=== PATIENT | male | born 1955 | race Caucasian/White ===

== ENCOUNTER → 2017-03-30 | Emergency (ER) | payer OTHER ==
[~2017-03-30] VITALS: Ht 182.9 cm; Wt 104.3 kg
[~2017-03-30] MED LIST: ACETAMINOPHEN 325 MG TABLET. PO PRN; ALLOPURINOL 300 MG TABLET. PO SCH; ASPI81TA50 PO; ASPIRIN ENTERIC COATED 81 MG TABLET.DR. PO SCH; CARV25TA PO; CARVEDILOL 12.5 MG TABLET. PO SCH; CRESTOR10 MG PO; FURO-68 PO; FUROSEMIDE 40 MG TABLET. PO SCH; HYDR-971 PO; HYDR20VI5 IJ; HYDROCODONE/APAP 5/325MG TABLET. PO PRN; MULT-138 PO; MULTIVITAMIN with MINERAL TABLET. PO SCH; NITROGLYCERIN SUBLINGUAL 0.4 MG BOTTLE OF 25. SL PRN; NON FORMULARY ITEM (Rosuvastatin Calcium (Crestor) 10 MG) PO SCH; ONDANSETRON PF 4 MG/2 ML VIAL. IV ONE; ONDANSETRON PF 4 MG/2 ML VIAL. IV PRN; PANTOPRAZOLE 40 MG TABLET.DR. PO SCH; ROPI0.5T PO; ROPINIROLE HCL 0.5 MG PO SCH; WARF6TAB7 PO; WARFARIN 6 MG TABLET. PO SCH; [UNRECOGNIZED DRUG - CODE] PO; fentaNYL PF VIAL 100 MCG/2 ML VIAL IV ONE
[2017-03-30 08:00] LABS: BASO % 1 % (0-3); EOS % 2 % (0-3); HEMATOCRIT 38.1 % (39.0-53.0); HEMOGLOBIN 12.5 g/dL (13.0-17.5); LYMPH # 1.4 x10^3/uL (1.0-4.8); LYMPH % 22 % (24-48); MEAN CORPUSCULAR HEMOGLOBIN 31 pg (25-35); MEAN CORPUSCULAR HGB CONC 33 g/dL (31-37); MEAN CORPUSCULAR VOLUME 95 fL (79-100); MONO % 8 % (0-9); NEUT % 68 % (31-73); PLATELET COUNT 142 x10^3/uL (140-400); RED CELL DISTRIBUTION WIDTH 14.8 % (11.5-14.5); WHITE BLOOD COUNT 6.6 x10^3/uL (4.0-11.0)
[2017-03-30 08:05] LABS: INR 1.4 (0.8-1.1); PROTHROMBIN TIME PATIENT 16.6 SEC (11.7-14.0)
[2017-03-30 08:08] LABS: CALCIUM 9.1 mg/dL (8.5-10.1); CREATININE 1.6 mg/dL (0.7-1.3); POTASSIUM 4.3 mmol/L (3.5-5.1)
[2017-03-30 08:13] LABS: ALBUMIN 3.7 g/dL (3.4-5.0); ALBUMIN/GLOBULIN RATIO 1.1 (1.0-1.7); TOTAL BILIRUBIN 0.6 mg/dL (0.2-1.0); TOTAL PROTEIN 7.1 g/dL (6.4-8.2)
--- NOTE | 2017-03-30 08:21 | ED.ADGEN ---
Adult General Chief Complaint Chief Complaint: CHEST PAIN-CARDIAC NATURE HPI HPI Patient is a 61 year old with history of mechanical aortic valve replacement, pacemaker, CAD with stent placement presents with shortness of breath and epigastric pain and Lower chest wall hours prior to ED arrival. No nausea vomiting or sweats. Patient initially rate pain tenderness 10, but has improved to 5 out of 10 with 325 mg of aspirin and nitroglycerin 2. On ED arrival, chest pain persists. Patient's noted to be in a bigeminy S paced rhythm with a pulse rate of 40. Patient denies any other acute symptoms or complaints. 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 Review of Systems Review of Systems Review symptoms as per history of present illness. All other review of symptoms are negative. Current Medications Current Medications Current Medications Medications (Trade) Dose Ordered Sig/Harshal Start Time Stop Time Status Last Admin Dose Admin Enoxaparin Sodium (Lovenox 100mg Syringe) 100 mg 1X ONCE 03/30/17 09:15 03/30/17 09:16 DC 03/30/17 09:42 100 MG Fentanyl Citrate (Fentanyl 2ml Vial) 50 mcg 1X ONCE 03/30/17 08:30 03/30/17 08:31 DC 03/30/17 08:49 50 MCG Nitroglycerin (Nitrostat) 0.4 mg PRN Q5MIN PRN 03/30/17 11:30 03/30/17 11:27 0.4 MG Ondansetron HCl (Zofran) 4 mg 1X ONCE 03/30/17 08:00 03/30/17 08:00 DC Allergies Allergies Allergies Coded Allergies Type Severity Reaction Last Updated Verified lisinopril Allergy Intermediate rash 03/30/17 Yes Physical Exam Physical Exam Constitutional: Well developed, well nourished, moderate discomfort secondary to pain, non-toxic appearance. HENT: Normocephalic, atraumatic, bilateral external ears normal, oropharynx moist, no oral exudates, nose normal. Eyes: PERRLA, EOMI. Neck: Normal range of motion, supple. Cardiovascular:Heart rate regular rhythm, murmur present. Lungs & Thorax: Bilateral breath sounds clear to auscultation. Abdomen: Bowel sounds normal, soft, no tenderness. Skin: Warm, dry, no erythema. Back: No tenderness,. Extremities: No tenderness. Neurologic: Alert and oriented X 3, normal motor function, normal sensory function, no focal deficits noted. Psychologic: Affect normal, judgement normal, mood normal. Current Patient Data Vital Signs Vital Signs Date Time Temp Pulse Resp B/P Pulse Ox O2 Delivery O2 Flow Rate FiO2 03/30/17 11:27 75 151/84 03/30/17 10:44 14 99 Nasal Cannula 2 03/30/17 07:30 98.0 98.0 Lab Values Laboratory Tests Test 03/30/17 07:30 White Blood Count 6.6x10^3/uL (4.0-11.0) Red Blood Count 4.00x10^6/uL (4.30-5.70) L Hemoglobin 12.5g/dL (13.0-17.5) L Hematocrit 38.1% (39.0-53.0) L Mean Corpuscular Volume 95fL (79-100) Mean Corpuscular Hemoglobin 31pg (25-35) Mean Corpuscular Hemoglobin Concent 33g/dL (31-37) Red Cell Distribution Width 14.8% (11.5-14.5) H Platelet Count 142x10^3/uL (140-400) Neutrophils (%) (Auto) 68% (31-73) Lymphocytes (%) (Auto) 22% (24-48) L Monocytes (%) (Auto) 8% (0-9) Eosinophils (%) (Auto) 2% (0-3) Basophils (%) (Auto) 1% (0-3) Neutrophils # (Auto) 4.5x10^3uL (1.8-7.7) Lymphocytes # (Auto) 1.4x10^3/uL (1.0-4.8) Monocytes # (Auto) 0.5x10^3/uL (0.0-1.1) Eosinophils # (Auto) 0.1x10^3/uL (0.0-0.7) Basophils # (Auto) 0.0x10^3/uL (0.0-0.2) Prothrombin Time 16.6SEC (11.7-14.0) H Prothrombin Time INR 1.4 (0.8-1.1) H Sodium Level 137mmol/L (136-145) Potassium Level 4.3mmol/L (3.5-5.1) Chloride Level 104mmol/L (98-107) Carbon Dioxide Level 24mmol/L (21-32) Anion Gap 9 (6-14) Blood Urea Nitrogen 35mg/dL (8-26) H Creatinine 1.6mg/dL (0.7-1.3) H Estimated GFR (Cockcroft-Gault) 44.0 BUN/Creatinine Ratio 22 (6-20) H Glucose Level 196mg/dL (70-99) H Calcium Level 9.1mg/dL (8.5-10.1) Total Bilirubin 0.6mg/dL (0.2-1.0) Aspartate Amino Transferase (AST) 30U/L (15-37) Alanine Aminotransferase (ALT) 30U/L (16-63) Alkaline Phosphatase 38U/L (46-116) L Creatine Kinase 298U/L (39-308) Troponin I Quantitative 0.076ng/mL (0.000-0.055) Total Protein 7.1g/dL (6.4-8.2) Albumin 3.7g/dL (3.4-5.0) Albumin/Globulin Ratio 1.1 (1.0-1.7) Laboratory Tests 03/30/17 07:30 Laboratory Tests 03/30/17 07:30 EKG EKG EKG: Sinus rhythm, rate 81 with bigeminy. Radiology/Procedures Radiology/Procedures [Chest x-ray: Chest x-ray: No acute cardiopulmonary disease.] Impressions: Chest pain with frequent PACs and bigeminy on EKG. Troponin minimally elevated. Pain free with fentanyl. Patient's INR is subtherapeutic. Lovenox given. Course & Med Decision Making Course & Med Decision Making Pertinent Labs and Imaging studies reviewed. (See chart for details) [Patient Ariela request transfer to [facility]. However, due to extended transfer times patient inches mind and requests admission to [facility]. Dr. Schwarz to admit with anticipated cardiology consult Aurea Disclaimer Aurea Disclaimer This electronic medical record was generated, in whole or in part, using a voice recognition dictation system. MATT ROSA DO March 30, 2017 08:21
--- NOTE | 2017-03-30 10:16 | ACF ---
Admission Forms Criteria CARDIOLOGY GRG Clinical Indications for Admission to Inpatient Care ( Place 'X' for any and all applicable criteria): Hospital admission is needed for appropriate care of the patient because of ANY ONE of the following (1): [ ] I. Hemodynamic instability as indicated by ALL of the following (1)(2)(3) (4)(5) [ ]a) Vital signs or other findings not as expected for chronic patient condition or baseline [ ]b) Instability indicated by ANY ONE of the following: [ ]i) Hypotension [ ]ii) Symptomatic Tachycardia unresponsive to treatment ( e.g., analgesia, fluids, sedation as indicated) [ ]iii) Inadequate perfusion indicated by ANY ONE of the following: [ ] 1) Lactic acidosis (> 2 mmol/L) [ ] 2) New abnormal capillary refill (> 3 seconds) [ ] 3) Reduced urine output [ ] 4) New altered mental status [ ]iv) Orthostatic vital sign changes unresponsive to treatment (e.g., fluids) [ ]v) IV inotropic or vasopressor medication required to maintain adequate blood pressure or perfusion [ ] II. Severe heart failure as indicated by ANY ONE of the following(17)(18) [ ]a) Respiratory distress [ ]b) Hypotension [ ]c) Anasarca (refractory to outpatient therapy) [ ]d) Cardiac arrhythmias of immediate concern [ ]e) Myocardial ischemia [ ] III. Cardiac arrhythmias or findings of immediate concern indicated by ANY ONE of the following (19)(20): [ ] a) Heart rhythms that are inherently dangerous or unstable indicated by ANY ONE of the following (21)(22)(23): [ ] i) Resuscitated ventricular fibrillation or cardiac arrest [ ] ii) Ventricular escape rhythm [ ] iii) Sustained ventricular tachycardia (30 seconds or more of ventricular rhythm at greater than 100 beats per minute) [ ] iv) Nonsustained ventricular tachycardia and ANY ONE of the following: [ ] 1) Suspected cardiac ischemia as cause or consequence of ventricular tachycardia [ ] 2) In setting of acute myocarditis [ ] b) Unstable cardiac conduction defects indicated by ANY ONE of the following(23)(24)(25) [ ] i) Type II second-degree atrioventricular block [ ]ii) Third-degree atrioventricular block [ ]iii) New-onset left bundle branch block with suspected myocardial ischemia [ ]c) Any heart rhythm and ANY ONE of the following (21)(22)(26)(27) (28) [ ] i) Continuous long-term ECG monitoring needed (e.g., initiation of drug requiring monitoring for more than 24 hours) [ ] ii) Patient has automatic implanted cardioverter defibrillator that is repeatedly firing, malfunctioning, or in need of immediate adjustment of settings beyond the scope of ambulatory or observation care [ ]d) Heart rhythms of concern due to ANY ONE of the following: [ ] i) Hypotension [ ] ii) Respiratory distress [ ] iii) Association with other significant symptoms (e.g., bradycardia with syncope or ongoing dizziness, supraventricular tachycardia with chest pain (14)(15)(17) [ ] IV. Monitoring for cardiac contusion beyond the scope of observation care needed [A](30)(31)(32) [ ] V. Surgical or device complication (e.g., valve replacement complication , pacemaker dysfunction) (35)(41)(44)(45)(46) [ ] . Inpatient palliative care needed. [B](49) Also use Inpatient Palliative Care Criteria [ ] VII. Nonbacterial thrombotic (marantic) endocarditis (36)(43)(47)(48) [X] VIII. Cardiology condition, symptom, or finding for which emergency and observation care has failed or are not considered appropriate. [ ] IX. Acute valvular disease requiring inpatient as indicated by ANY ONE of the following (41) [ ]a) Acute valvular regurgitation (42) [ ]b) Noninfectious valvulitis (43) [ ]c) Obstructive valve thrombosis [ ]d) Paravalvular leak [ ]e) Other significant valvular disorder remaining after emergency or observation level of care (as appropriate) [ ]X. Pericardial disease requiring inpatient treatment as indicated by ANY ONE of the following (33)(34)(35)(36)(37) [ ]a) Suspected tamponade (38)(39)(40) [ ]b) Hemopericardium [ ]c) Other significant pericardial disorder remaining after emergency or observation level of care (as appropriate) [ ] XI. Cardiac ischemia beyond scope of emergency and observation care. [ ] XII. Hypertension requiring inpatient treatment as indicated by ANY ONE of the following (6)(7)(8) [ ]a) SBP greater than 220 mm Hg or DBP greater than 120 mmHg despite treatment [ ]b) SBP greater than 140 mm Hg or DBP greater than 100 mm Hg with evidence of acute end organ damage as indicated by ANY ONE of the following [ ] i) Encephalopathy [ ] ii) Acute renal failure as indicated by new onset of ANY ONE of the following (9)(10)(11)(12)(13) [ ]1) 3-fold rise in serum creatinine from baseline [ ]2) Serum creatinine greater than 4 mg/dL ( 354 micromoles/L) with acute rise greater than 0.5 mg/dL (44.2 micromoles/L) [ ]3) Reduction of more than 75% in estimated glomerular filtration rate from baseline [ ]4) Estimated glomerular filtration rate less than 35 mL/min/1.73m2 (0.59 mL/sec/1.73m2) in child up to 18 years of age [ ]5) Cessation of urine output indicated by ALL of the following [ ]A. Adequate volume status [ ]B. Inadequate urine output as indicated by ANY ONE of the following [ ]a. Urine output less than 0.3 mL/kg/hr for 24 hours [ ]b. Anuria (urine output less than 0.1 mL/kg/hr) for 12 hours [ ] iii) Aortic dissection [ ] iv) Myocardial Ischemia [ ] v) Left ventricular heart failure [ ]vi) Retinal Hemorrhage [ ]vii) Other significant finding [ ]c) Hypertension in child requiring inpatient treatment as indicated by ALL of the following(14)(15)(16) [ ] i) Outpatient treatment not effective, not available, or not appropriate [ ]ii) SBP or DBP greater than 95th percentile for age [ ]iii) Evidence of acute end organ damage as indicated by ANY ONE of the following [ ]1) Altered mental status [ ]2) Acute renal failure as indicated by new onset of ANY ONE of the following(9)(10)(11)(12)(13) [ ]A. 3-fold rise in serum creatinine from baseline [ ]B. Serum creatinine greater than 4 mg/dL (354 micromoles/L) with acute rise greater than 0.5 mg/dL (44.2 micromoles/L) [ ]C. Reduction of more than 75% in estimated glomerular filtration rate from baseline [ ]D. Estimated glomerular filtration rate less than 35 mL/min/1.73m2 (0.59 mL/sec/1.73m2) in child up to 18 years of age [ ]E. Cessation of urine output indicated by ALL of the following [ ]a. Adequate volume status [ ]b. Inadequate urine output as indicated by ANY ONE of the following [ ]i) Urine output less than 0.3 mL/kg/hr for 24 hours [ ]ii) Anuria ( urine output less than 0.1 mL/kg/hr) for 12 hours [ ]3) Severe headache [ ]4) Visual disturbance [ ]5) Retinal hemorrhage [ ]6) Other significant finding [ ]XIII. Complications of transplanted heart indicated by ANY ONE of the following(61): [ ]a) Acute graft rejection requiring inpatient management (eg, intravenous immunosuppression)(62)(63) [ ]b) Acute graft heart failure indicated by ANY ONE of the following(64): [ ]i) Hemodynamic instability [ ]ii) Cardiac arrhythmias of immediate concern [ ]iii) Pulmonary edema that is very severe (eg, mechanical ventilation needed, imminent or likely, need for 100% oxygen to keep oxygen saturation above 90%) [ ]iv) Pulmonary edema that is persistent as indicated by ALL of the following: [ ]1) New need for oxygen therapy to keep oxygen saturation above 90% (or increased FiO2 need from baseline) [ ]2) Has not improved sufficiently with emergency department or observation care IV diuretics or other heart failure treatments[E] [ ]v) Altered mental status that is severe or persistent [ ]vi) Increased creatinine (new on laboratory test) with reduction of more than 50% in estimated glomerular filtration rate from baseline [ ]vii) Progressively (ongoing) rising creatinine (known from past laboratory test) with reduction of more than 25% in estimated glomerular filtration rate from baseline [ ]viii) Acute renal failure [ ]ix) Acute peripheral ischemia (eg, examination shows pulseless, cool, mottled, or cyanotic extremity) [ ]x) Pulmonary artery catheter monitoring needed [ ]xi) Other sign or symptom of heart failure requiring inpatient treatment (ie, too severe or not responsive to outpatient and observation care treatment) [ ]c) Infection requiring inpatient management (eg, Hemodynamic instability, need for intravenous antimicrobial treatment)(66)(67)(68)(69)(70) [ ]d) Cardiac allograft vasculopathy requiring inpatient management ( eg evidence of cardiac ischemia)(71) [ ]e) Other complication of transplanted heart (eg, stroke, severe pulmonary hypertension, severe valvular dysfunction) requiring inpatient management(72) The original [facility] content created by [facility] has been revised. The portions of the content which have been revised are identified through the use of italic text or in bold, and [facility] has neither reviewed nor approved the modified material. All other unmodified content is copyright [facility]. Please see references footnoted in the original [facility] edition 2016 Admission Criteria Met?: Yes SANDRA BEAVERS March 30, 2017 10:16
--- NOTE | 2017-03-30 11:37 | RAD ---
Portable chest, 03/30/2017: History: Shortness of breath Comparison is made to a study from 07/31/2010. There has been a previous median sternotomy. A left-sided transvenous pacemaker has been inserted with 3 leads extending into the heart. The heart is at the upper limits of normal in size. There is calcific plaquing of the aorta. The pulmonary vascularity is normal. No pulmonary infiltrates are seen. There is no evidence of pleural fluid. IMPRESSION: 1. Borderline cardiomegaly. 2. No acute abnormality is detected.
--- NOTE | 2017-03-30 13:12 | EKG ---
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
--- NOTE | 2017-03-30 14:43 | PDOC1 ---
History and Physical Date of Admission Date of Admission 03/30/17 Identification/Chief Complaint Chief Complaint chest pain Problems: Source Source: Chart review, Patient History of Present Illness History of Present Illness Patient is a 61 year old with history of mechanical aortic valve replacement, pacemaker/ICD, CAD with stent placement 3 Years ago comes for chest pain. Pt usually fu with [facility]. He said he had a stress test done this year which showed EF 30% and then got ICD /PPM 1 month ago. He had substernal chest pain started from today, with sob, no N/V or diaphoresis. He also feels right finger tingling. He also has chest wall tenderness, and said it is the chest pain. better with nitro. denies GERD, but has mild LUQ abd tenderness. takes warfarin for AVR 5mg 5/w, 5mg 2/w, last week INR 5, now 1.4. troponin 0.07 Past Medical History Past Medical History cad, AVR, icd, ppm Cardiovascular: HTN Past Surgical History Past Surgical History avr Family History Family History: No Significant Social History Smoke: No ALCOHOL: none Drugs: None Current Problem List Problem List Problems Medical Problems: (1) Chest pain Status: Acute (2) Chest pain Status: Acute Current Medications Current Medications Current Medications Medications (Trade) Dose Ordered Sig/Harshal Start Time Stop Time Status Last Admin Dose Admin Enoxaparin Sodium (Lovenox 100mg Syringe) 100 mg 1X ONCE 03/30/17 09:15 03/30/17 09:16 DC 03/30/17 09:42 100 MG Fentanyl Citrate (Fentanyl 2ml Vial) 50 mcg 1X ONCE 03/30/17 08:30 03/30/17 08:31 DC 03/30/17 08:49 50 MCG Nitroglycerin (Nitrostat) 0.4 mg PRN Q5MIN PRN 03/30/17 11:30 03/30/17 11:27 0.4 MG Ondansetron HCl (Zofran) 4 mg 1X ONCE 03/30/17 08:00 03/30/17 08:00 DC Allergies Allergies Allergies Coded Allergies Type Severity Reaction Last Updated Verified lisinopril Allergy Intermediate rash 03/30/17 Yes ROS Review of System CONSTITUTIONAL: No fever or chills EYES: No recent changes SKIN: No rash or itching CARDIOVASCULAR: No chest pain, syncope, palpitations, or edema RESPIRATORY: No SOB or cough GASTROINTESTINAL: No nausea, vomiting or abdominal pain NEUROLOGICAL: No headaches or weakness ENDOCRINE: No cold or heat intolerance GENITOURINARY: No urgency or frequency of urination MUSCULOSKELETAL: No back pain or joint pain LYMPHATICS: No enlarged lymph nodes PSYCHIATRIC: No anxiety or depression Physical Exam Physical Exam GEN.: No apparent distress. Alert and oriented. HEENT: Head is normocephalic, atraumatic NECK: Supple. LUNGS: Clear to auscultation. MIDDLE chest wall tenderness. HEART: RRR, S1, S2 present. Peripheral pulses intact ABDOMEN: Soft, nontender. Positive bowel sounds. LUQ abd mild tenderness EXTREMITIES: Without any cyanosis. NEUROLOGIC: Normal speech, normal tone PSYCHIATRIC: Normal affect, normal mood. SKIN: No ulcerations Vitals Vitals Vital Signs Date Time Temp Pulse Resp B/P Pulse Ox O2 Delivery O2 Flow Rate FiO2 03/30/17 13:54 66 15 147/70 99 Nasal Cannula 2 03/30/17 07:30 98.0 98.0 Labs Labs Laboratory Tests Test 03/30/17 07:30 White Blood Count 6.6x10^3/uL (4.0-11.0) Red Blood Count 4.00x10^6/uL (4.30-5.70) Hemoglobin 12.5g/dL (13.0-17.5) Hematocrit 38.1% (39.0-53.0) Mean Corpuscular Volume 95fL (79-100) Mean Corpuscular Hemoglobin 31pg (25-35) Mean Corpuscular Hemoglobin Concent 33g/dL (31-37) Red Cell Distribution Width 14.8% (11.5-14.5) Platelet Count 142x10^3/uL (140-400) Neutrophils (%) (Auto) 68% (31-73) Lymphocytes (%) (Auto) 22% (24-48) Monocytes (%) (Auto) 8% (0-9) Eosinophils (%) (Auto) 2% (0-3) Basophils (%) (Auto) 1% (0-3) Neutrophils # (Auto) 4.5x10^3uL (1.8-7.7) Lymphocytes # (Auto) 1.4x10^3/uL (1.0-4.8) Monocytes # (Auto) 0.5x10^3/uL (0.0-1.1) Eosinophils # (Auto) 0.1x10^3/uL (0.0-0.7) Basophils # (Auto) 0.0x10^3/uL (0.0-0.2) Prothrombin Time 16.6SEC (11.7-14.0) Prothromb Time International Ratio 1.4 (0.8-1.1) Sodium Level 137mmol/L (136-145) Potassium Level 4.3mmol/L (3.5-5.1) Chloride Level 104mmol/L (98-107) Carbon Dioxide Level 24mmol/L (21-32) Anion Gap 9 (6-14) Blood Urea Nitrogen 35mg/dL (8-26) Creatinine 1.6mg/dL (0.7-1.3) Estimated GFR (Cockcroft-Gault) 44.0 BUN/Creatinine Ratio 22 (6-20) Glucose Level 196mg/dL (70-99) Calcium Level 9.1mg/dL (8.5-10.1) Total Bilirubin 0.6mg/dL (0.2-1.0) Aspartate Amino Transf (AST/SGOT) 30U/L (15-37) Alanine Aminotransferase (ALT/SGPT) 30U/L (16-63) Alkaline Phosphatase 38U/L (46-116) Creatine Kinase 298U/L (39-308) Troponin I Quantitative 0.076ng/mL (0.000-0.055) Total Protein 7.1g/dL (6.4-8.2) Albumin 3.7g/dL (3.4-5.0) Albumin/Globulin Ratio 1.1 (1.0-1.7) Laboratory Tests Test 03/30/17 07:30 White Blood Count 6.6x10^3/uL (4.0-11.0) Red Blood Count 4.00x10^6/uL (4.30-5.70) Hemoglobin 12.5g/dL (13.0-17.5) Hematocrit 38.1% (39.0-53.0) Mean Corpuscular Volume 95fL (79-100) Mean Corpuscular Hemoglobin 31pg (25-35) Mean Corpuscular Hemoglobin Concent 33g/dL (31-37) Red Cell Distribution Width 14.8% (11.5-14.5) Platelet Count 142x10^3/uL (140-400) Neutrophils (%) (Auto) 68% (31-73) Lymphocytes (%) (Auto) 22% (24-48) Monocytes (%) (Auto) 8% (0-9) Eosinophils (%) (Auto) 2% (0-3) Basophils (%) (Auto) 1% (0-3) Neutrophils # (Auto) 4.5x10^3uL (1.8-7.7) Lymphocytes # (Auto) 1.4x10^3/uL (1.0-4.8) Monocytes # (Auto) 0.5x10^3/uL (0.0-1.1) Eosinophils # (Auto) 0.1x10^3/uL (0.0-0.7) Basophils # (Auto) 0.0x10^3/uL (0.0-0.2) Prothrombin Time 16.6SEC (11.7-14.0) Prothromb Time International Ratio 1.4 (0.8-1.1) Sodium Level 137mmol/L (136-145) Potassium Level 4.3mmol/L (3.5-5.1) Chloride Level 104mmol/L (98-107) Carbon Dioxide Level 24mmol/L (21-32) Anion Gap 9 (6-14) Blood Urea Nitrogen 35mg/dL (8-26) Creatinine 1.6mg/dL (0.7-1.3) Estimated GFR (Cockcroft-Gault) 44.0 BUN/Creatinine Ratio 22 (6-20) Glucose Level 196mg/dL (70-99) Calcium Level 9.1mg/dL (8.5-10.1) Total Bilirubin 0.6mg/dL (0.2-1.0) Aspartate Amino Transf (AST/SGOT) 30U/L (15-37) Alanine Aminotransferase (ALT/SGPT) 30U/L (16-63) Alkaline Phosphatase 38U/L (46-116) Creatine Kinase 298U/L (39-308) Troponin I Quantitative 0.076ng/mL (0.000-0.055) Total Protein 7.1g/dL (6.4-8.2) Albumin 3.7g/dL (3.4-5.0) Albumin/Globulin Ratio 1.1 (1.0-1.7) VTE Prophylaxis Ordered VTE Prophylaxis Devices: Yes VTE Pharmacological Prophylaxi: No Assessment/Plan Assessment/Plan 1. chest pain, need to rule out NSTEMI with mild elevated troponin, could also 2 /2 muscular pain with tenderness 2. h/o CAD post PCI with 1 stent 3. AVR on warfarin 4. PPM, ICD 5. STAble systolic chf EF 30% 6. htn 7. CKD3 PLAN: card consult need to get records from [facility], got recent MPI resume home meds on warfarin, cont , INR daily. got extra dose of lovenox in ER cycle CE, check tsh, lipid panel pain control SERAFIN CARNEY MD March 30, 2017 14:42
[2017-03-30 15:39] VITALS: BP 130/91
== END | disposition short-term general hospital (02) ==
LOC: ER 07:30 → ED HOLD 12:33 → UNDOADMIN 12:33 → ER 16:08
DX: R07.89 Other chest pain (principal); I49.1 Atrial premature depolarization; R00.8 Other abnormalities of heart beat; Z88.8 Allergy status to other drugs, medicaments and biological substances
CPT/HCPCS: 36415; 71010; 80053; 82550; 84484; 85027; 85610; 93005; 96372; 96374; 96375; 96376; 99285; J1650; J2405; J3010

== ENCOUNTER 2017-09-06 08:29 | Inpatient (IN) | payer MEDICARE, OTHER ==
[2017-09-06] VITALS (10 sets, daily range): BP systolic 108–166; BP diastolic 65–99
[~2017-09-06] VITALS: Ht 182.9 cm; Wt 109.9 kg
[~2017-09-06 08:29] MED LIST changes: -ACETAMINOPHEN 325 MG TABLET. PO PRN; +ALLO300T67 PO; -ALLOPURINOL 300 MG TABLET. PO SCH; -ASPIRIN ENTERIC COATED 81 MG TABLET.DR. PO SCH; -CARVEDILOL 12.5 MG TABLET. PO SCH; -FUROSEMIDE 40 MG TABLET. PO SCH; -HYDROCODONE/APAP 5/325MG TABLET. PO PRN; -MULTIVITAMIN with MINERAL TABLET. PO SCH; -NITROGLYCERIN SUBLINGUAL 0.4 MG BOTTLE OF 25. SL PRN; -NON FORMULARY ITEM (Rosuvastatin Calcium (Crestor) 10 MG) PO SCH; -ONDANSETRON PF 4 MG/2 ML VIAL. IV ONE; -ONDANSETRON PF 4 MG/2 ML VIAL. IV PRN; -PANTOPRAZOLE 40 MG TABLET.DR. PO SCH; -ROPINIROLE HCL 0.5 MG PO SCH; -WARFARIN 6 MG TABLET. PO SCH; -[UNRECOGNIZED DRUG - CODE] PO; -fentaNYL PF VIAL 100 MCG/2 ML VIAL IV ONE
--- NOTE | 2017-09-06 08:34 | PHYS DOC ---
Past Medical History Past Medical History: Hypertension, GA Past Surgical History: Pacemaker, Other Additional Past Surgical Histo: defib, aortic valve replacement, cardiac cath with stent Alcohol Use: None Drug Use: None Adult General Chief Complaint Chief Complaint: SHORTNESS OF BREATH HPI HPI Patient is a 62 year old male who presents with is pain that started this morning around 3 hours ago with shortness of breath. He states he's on Lasix he's been compliant with all his medications. He states he had aortic valve replacement at [facility] several years ago, he states is on Coumadin. He is being bagged by EMS because he is refusing BiPAP. He states he is usually seen at the [facility]. He denies any fevers or chills. Review of Systems Review of Systems Constitutional: Denies fever or chills [] Eyes: Denies change in visual acuity, redness, or eye pain [] HENT: Denies nasal congestion or sore throat [] Respiratory: Positive for productive cough and shortness of breath. Cardiovascular: No additional information not addressed in HPI [] GI: Denies abdominal pain, nausea, vomiting, bloody stools or diarrhea [] : Denies dysuria or hematuria [] Musculoskeletal: Denies back pain or joint pain [] Integument: Denies rash or skin lesions [] Neurologic: Denies headache, focal weakness or sensory changes [] Endocrine: Denies polyuria or polydipsia [] Current Medications Current Medications Current Medications Medications (Trade) Dose Ordered Sig/Harshal Start Time Stop Time Status Last Admin Dose Admin Albuterol/ Ipratropium (Duoneb) 3 ml 1X ONCE 09/06/17 10:45 09/06/17 10:46 Aspirin (Children'S Aspirin) 324 mg 1X ONCE 09/06/17 08:45 09/06/17 08:46 DC 09/06/17 09:08 324 MG Enoxaparin Sodium (Lovenox 100mg Syringe) 100 mg Q12HR 09/06/17 11:00 Enoxaparin Sodium (Lovenox Per Pharmacy Treatment Dosing) 1 each PRN DAILY PRN 09/06/17 10:45 Furosemide (Lasix) 40 mg STK-MED ONCE 09/06/17 08:37 09/06/17 08:38 DC Lorazepam (Ativan) 0.5 mg 1X ONCE 09/06/17 09:15 09/06/17 09:18 DC 09/06/17 09:23 0.5 MG Nitroglycerin (Nitrostat) 0.4 mg PRN Q5MIN PRN 09/06/17 08:45 09/07/17 08:44 Allergies Allergies Allergies Coded Allergies Type Severity Reaction Last Updated Verified lisinopril Allergy Intermediate rash 03/30/17 Yes Physical Exam Physical Exam Constitutional: Well developed, well nourished, no acute distress, non-toxic appearance. [] HENT: Normocephalic, atraumatic, bilateral external ears normal, oropharynx moist, no oral exudates, nose normal. [] Eyes: PERRLA, EOMI, conjunctiva normal, no discharge. [] Neck: Normal range of motion, no tenderness, supple, no stridor. [] Cardiovascular:Heart rate regular rhythm, no murmur [] Lungs & Thorax: Bilateral breath sounds decreased at the bases with crackles present Abdomen: Bowel sounds normal, soft, no tenderness, no masses, no pulsatile masses. [] Skin: Warm, dry, no erythema, no rash. [] Back: No tenderness, no CVA tenderness. [] Extremities: No tenderness, no cyanosis, no clubbing, ROM intact, no edema. [] Neurologic: Alert and oriented X 3, normal motor function, normal sensory function, no focal deficits noted. [] Psychologic: Affect normal, judgement normal, mood normal. [] Current Patient Data Vital Signs Vital Signs Date Time Temp Pulse Resp B/P (MAP) Pulse Ox O2 Delivery O2 Flow Rate FiO2 09/06/17 10:13 68 134/91 (105) 99 BiPAP/CPAP 09/06/17 09:28 24 09/06/17 08:58 6.0 09/06/17 08:31 97.8 97.8 Lab Values Laboratory Tests Test 09/06/17 08:40 09/06/17 08:51 09/06/17 09:30 White Blood Count 9.1 x10^3/uL (4.0-11.0) Red Blood Count 4.59 x10^6/uL (4.30-5.70) Hemoglobin 14.2 g/dL (13.0-17.5) Hematocrit 43.7 % (39.0-53.0) Mean Corpuscular Volume 95 fL (79-100) Mean Corpuscular Hemoglobin 31 pg (25-35) Mean Corpuscular Hemoglobin Concent 32 g/dL (31-37) Red Cell Distribution Width 15.2 % (11.5-14.5) H Platelet Count 276 x10^3/uL (140-400) Neutrophils (%) (Auto) 48 % (31-73) Lymphocytes (%) (Auto) 39 % (24-48) Monocytes (%) (Auto) 9 % (0-9) Eosinophils (%) (Auto) 3 % (0-3) Basophils (%) (Auto) 1 % (0-3) Neutrophils # (Auto) 4.4 x10^3uL (1.8-7.7) Lymphocytes # (Auto) 3.6 x10^3/uL (1.0-4.8) Monocytes # (Auto) 0.8 x10^3/uL (0.0-1.1) Eosinophils # (Auto) 0.3 x10^3/uL (0.0-0.7) Basophils # (Auto) 0.1 x10^3/uL (0.0-0.2) Prothrombin Time 16.9 SEC (11.7-14.0) H Prothrombin Time INR 1.5 (0.8-1.1) H Sodium Level 143 mmol/L (136-145) Potassium Level 3.9 mmol/L (3.5-5.1) Chloride Level 107 mmol/L (98-107) Carbon Dioxide Level 24 mmol/L (21-32) Anion Gap 12 (6-14) Blood Urea Nitrogen 23 mg/dL (8-26) Creatinine 1.5 mg/dL (0.7-1.3) H Estimated GFR (Cockcroft-Gault) 47.3 Glucose Level 236 mg/dL (70-99) H Calcium Level 8.8 mg/dL (8.5-10.1) Magnesium Level 2.1 mg/dL (1.8-2.4) Total Bilirubin 0.3 mg/dL (0.2-1.0) Direct Bilirubin < 0.1 mg/dL (0.0-0.2) Aspartate Amino Transferase (AST) 29 U/L (15-37) Alanine Aminotransferase (ALT) 32 U/L (16-63) Alkaline Phosphatase 54 U/L (46-116) Creatine Kinase 324 U/L (39-308) H Creatine Kinase MB (Mass) 5.3 ng/mL (0.0-3.6) H Creatine Kinase MB Relative Index 1.6 % (0-4) Troponin I Quantitative 0.079 ng/mL (0.000-0.055) BU-Fmd-U-Type Natriuretic Peptide 2797 pg/mL (0-124) H Total Protein 7.4 g/dL (6.4-8.2) Albumin 4.0 g/dL (3.4-5.0) Lipase 273 U/L (73-393) Thyroid Stimulating Hormone (TSH) 3.036 uIU/mL (0.358-3.74) O2 Saturation 97 % (92-99) Arterial Blood pH 7.27 (7.35-7.45) L Arterial Blood pCO2 at Patient Temp 48 mmHg (35-46) H Arterial Blood pO2 at Patient Temp 101 mmHg (65-108) Arterial Blood HCO3 22 mmol/L (21-28) Arterial Blood Base Excess -6 mmol/L (-3-3) L FiO2 44 Lactic Acid Level 1.1 mmol/L (0.4-2.0) Laboratory Tests 09/06/17 08:40 Laboratory Tests 09/06/17 08:40 EKG EKG EKG shows sinus tachycardia with a rate of 112 bpm with right axis deviation, right bundle branch morphology noted, no ST elevations or concerning T-wave inversions noted, QTC 430 ms, as interpreted by me. Radiology/Procedures Radiology/Procedures [facility] [address] [place], [place] [id number] IMAGING REPORT Signed PATIENT: LAURIE CUI ACCOUNT: [id number] : 1955 LOCATION: ER AGE: 62 SEX: M EXAM STATUS: PRE ER ORD. PHYSICIAN: EMILY MEI MD REASON: soa PROCEDURE: PORTABLE CHEST 1V Portable chest, 09/06/2017: History: Shortness of breath Comparison is made to a study from 03/30/2017. There has been a previous median sternotomy. A left-sided transvenous pacemaker remains in place with 3 leads extending into the heart. The heart is enlarged. The pulmonary vascularity is congested with loss of vascular margination. There are moderate, predominantly interstitial opacities in the lungs suggesting pulmonary edema. There is no evidence of pleural fluid. IMPRESSION: Congestive heart failure with mild pulmonary edema. DICTATED and SIGNED BY: CYNTHIA CORTEZ MD DATE: 09/06/17 0915 CC: EMILY MEI MD; LAVINIA NORIEGA ~ Impressions: Congestive heart failure exacerbation Chest pain Aortic valve replacement Chronic kidney disease stage III Coronary artery disease with stents 1 Hypertension Course & Med Decision Making Course & Med Decision Making Pertinent Labs and Imaging studies reviewed. (See chart for details) EKG does not show any acute abnormalities, troponin is slightly elevated however this was elevated and his last admission 2. He does have a EF of around 30%. He received 40 of IV Lasix upon arrival. He received 0.5 mg Ativan times one and BiPAP was initiated after his ABG showed respiratory acidosis. He is feeling better at this point. At 10:30 I removed him off BiPAP and put him back on nasal cannula at 3 L. Dual neb has been ordered to see if that will help his symptoms. I did order Lovenox per pharmacy dosing since he subtherapeutic INR with his aortic valve. I did speak with Dr. Chaudhari regarding his EKG, elevated troponin, and physical exam findings. He agrees with Lovenox. Patient' s in stable condition being admitted to ICU at this time. Dragon Disclaimer Dragon Disclaimer This electronic medical record was generated, in whole or in part, using a voice recognition dictation system. Departure Departure Impression: Primary Impression: Acute exacerbation of congestive heart failure Disposition: ADMITTED INPATIENT Admitting Physician: Other Condition: STABLE Referrals: LAVINIA NORIEGA (PCP) Problem Qualifiers Primary Impression: Acute exacerbation of congestive heart failure Congestive heart failure type: systolic Qualified Codes: I50.23 - Acute on chronic systolic (congestive) heart failure EMILY MEI MD Sep 06, 2017 08:34
[2017-09-06] MEDS ORDERED: FUROSEMIDE 40 MG/4 ML VIAL. ONE (08:37)
[2017-09-06] MEDS ORDERED: NITROGLYCERIN SUBLINGUAL 0.4 MG BOTTLE OF 25. SL PRN ×2 (08:45→23:00)
[2017-09-06] MEDS ORDERED: ASPIRIN CHEWABLE 81 MG TABLET. PO ONE (08:45)
[2017-09-06] MEDS ORDERED: FUROSEMIDE 40 MG/4 ML VIAL. IVP ONE (08:45)
[2017-09-06 09:12] LABS: FIO2 ABG 44; HCO3 ABG 22 mmol/L (21-28); PCO2 ABG 48 mmHg (35-46); PH ABG 7.27 (7.35-7.45); PO2 ABG 101 mmHg (65-108); SAT O2 ABG 97 % (92-99)
--- NOTE | 2017-09-06 09:19 | RAD ---
Portable chest, 09/06/2017: History: Shortness of breath Comparison is made to a study from 03/30/2017. There has been a previous median sternotomy. A left-sided transvenous pacemaker remains in place with 3 leads extending into the heart. The heart is enlarged. The pulmonary vascularity is congested with loss of vascular margination. There are moderate, predominantly interstitial opacities in the lungs suggesting pulmonary edema. There is no evidence of pleural fluid. IMPRESSION: Congestive heart failure with mild pulmonary edema.
[2017-09-06 09:20] LABS: BASO # 0.1 x10^3/uL (0.0-0.2); BASO % 1 % (0-3); EOS % 3 % (0-3); HEMATOCRIT 43.7 % (39.0-53.0); HEMOGLOBIN 14.2 g/dL (13.0-17.5); LYMPH # 3.6 x10^3/uL (1.0-4.8); LYMPH % 39 % (24-48); MEAN CORPUSCULAR HEMOGLOBIN 31 pg (25-35); MEAN CORPUSCULAR HGB CONC 32 g/dL (31-37); MEAN CORPUSCULAR VOLUME 95 fL (79-100); MONO % 9 % (0-9); NEUT % 48 % (31-73); PLATELET COUNT 276 x10^3/uL (140-400); RED BLOOD COUNT 4.59 x10^6/uL (4.30-5.70); RED CELL DISTRIBUTION WIDTH 15.2 % (11.5-14.5); WHITE BLOOD COUNT 9.1 x10^3/uL (4.0-11.0)
[2017-09-06 09:33] LABS: ANION GAP 12 (6-14); BLOOD UREA NITROGEN 23 mg/dL (8-26); CALCIUM 8.8 mg/dL (8.5-10.1); CARBON DIOXIDE 24 mmol/L (21-32); CHLORIDE 107 mmol/L (98-107); CREATININE 1.5 mg/dL (0.7-1.3); GFR 47.3; GLUCOSE 236 mg/dL (70-99); POTASSIUM 3.9 mmol/L (3.5-5.1); SODIUM 143 mmol/L (136-145)
[2017-09-06 09:40] LABS: ALK PHOS 54 U/L (46-116); ALT (SGPT) 32 U/L (16-63); AST (SGOT) 29 U/L (15-37); DIRECT BILIRUBIN < 0.1 mg/dL (0.0-0.2); INR 1.5 (0.8-1.1); MAGNESIUM 2.1 mg/dL (1.8-2.4); PROTHROMBIN TIME PATIENT 16.9 SEC (11.7-14.0); TOTAL BILIRUBIN 0.3 mg/dL (0.2-1.0); TOTAL PROTEIN 7.4 g/dL (6.4-8.2)
[2017-09-06 09:49] LABS: CKMB MASS 5.3 ng/mL (0.0-3.6)
[2017-09-06] MEDS ORDERED: IPRATRPIUM/ALBUTEROL 0.5/2.5MG 3 ML NEBU. NEB ONE (10:45)
[2017-09-06] MEDS ORDERED: ONDANSETRON PF 4 MG/2 ML VIAL. IV PRN (10:45)
[2017-09-06 10:58] LABS: BILIRUBIN,URINE NEGATIVE (NEG); GLUCOSE,URINE NEGATIVE (NEG); NITRITE,URINE NEGATIVE (NEG); PROTEIN,URINE NEGATIVE (NEG-TRACE); UROBILINOGEN,URINE 0.2 mg/dL (0.2 mg/dL)
[2017-09-06 10:59] LABS: BARBITURATES NEG (NEG); BENZODIAZEPINES NEG (NEG); CANNABINOIDS NEG (NEG); COCAINE NEG (NEG); METHADONE NEG (NEG); OPIATES NEG (NEG); PHENCYCLIDINE NEG (NEG)
[2017-09-06 11:04] LABS: HCO3 ABG 22 mmol/L (21-28); PCO2 ABG 41 mmHg (35-46); PH ABG 7.35 (7.35-7.45); PO2 ABG 98 mmHg (65-108); SAT O2 ABG 97 % (92-99)
[2017-09-06 11:05] LABS: FIO2 ABG 40
[2017-09-06 11:26] LABS: BACTERIA,URINE 0 /HPF (0-FEW); RBC,URINE 0 /HPF (0-2); SQUAMOUS EPITHELIAL CELL,UR OCC /LPF; WBC,URINE 0 /HPF (0-4)
[2017-09-06] MEDS ORDERED: PNEUMOCOCCAL VAX SCREEN BY RX. MC ONE (12:00)
[2017-09-06] MEDS ORDERED: INFLUENZA VAX SCREEN BY RX. MC ONE (12:00)
--- NOTE | 2017-09-06 12:30 | EKG ---
[facility] [address] [place] [address] Test Date: 2017-09-06 Test Time: 08:37:59 Pat Name: LAURIE CUI Department: Room: 112 1 Gender: M Processing Mgr: DAVON : 1955 Requested By: EMILY MEI Order Number: [id number] Reading MD: Jason Serrano Measurements Intervals [place] Rate: 112 P: 59 HI: 108 QRS: 156 QRSD: 162 T: 26 QT: 314 QTc: 430 Interpretive Statements SINUS TACHYCARDIA ABNORMAL RIGHT AXIS DEVIATION RIGHT BUNDLE BRANCH BLOCK CONSIDER RIGHT VENTRICULAR HYPERTROPHY QRS(T) CONTOUR ABNORMALITY CONSIDER ANTEROLATERAL INFARCT CONSISTENT WITH INFERIOR INFARCT PROBABLY OLD ABNORMAL ECG RI6.01 Compared to ECG 03/30/2017 07:32:37 Electronically Signed On 09-24-2017 17:18:43 CDT by Jason Serrano
[2017-09-06] MEDS ORDERED: ZOLP10TA4 PO (12:36)
[2017-09-06] MEDS ORDERED: HYDR-2762 PO (12:36)
[2017-09-06] MEDS ORDERED: PRAM0.255 PO (12:36)
[2017-09-06] MEDS ORDERED: SACU1TAB7 PO (12:41)
[2017-09-06] MEDS ORDERED: NITR0.4T22 SL (12:41)
[2017-09-06] MEDS ORDERED: EZET10TA18 PO (12:41)
[2017-09-06] MEDS ORDERED: METF500T4 PO (12:41)
[2017-09-06] MEDS ORDERED: PANT40TA5 PO (12:41)
[2017-09-06] MEDS ORDERED: HYDROcodone/APAP 7.5/325MG 1 TAB TABLET PO PRN (12:45)
[2017-09-06] MEDS ORDERED: FLU VACC QS2017-18 (36MOS+)/PF 0.5 ML SYRINGE. VAX IM ONE (13:00)
[2017-09-06] MEDS ORDERED: PNEUMOC CONJ VACC 23-VALENT 0.5 ML VIAL. VAX IM ONE (13:00)
[2017-09-06] MEDS: HYDROcodone/APAP 7.5/325MG 1 TAB TABLET PO PRN (13:11)
[2017-09-06] MEDS: CARVEDILOL 12.5 MG TABLET. PO SCH ×2 (13:26→17:43)
[2017-09-06] MEDS: SACUBITRIL/VALSARTAN 49/51MG TABLET. PO SCH ×2 (13:30→21:39)
[2017-09-06] MEDS ORDERED: FURO-69 PO (13:54)
[2017-09-06] MEDS ORDERED: WARF6TAB49 PO (18:05)
[2017-09-06] MEDS ORDERED: WARF-78 PO (18:05)
[2017-09-06] MEDS: FUROSEMIDE 20 MG TABLET PO SCH (18:43)
[2017-09-06] MEDS ORDERED: WARFARIN 10 MG TABLET. PO ONE (19:00)
[2017-09-06] MEDS ORDERED: LIDO:MAALOX:DONNATAL 1:1:1 15 ML SINGLE DOSE SWSW ONE (20:30)
[2017-09-06] MEDS ORDERED: FLUCONAZOLE 100 MG TABLET. PO ONE (20:30)
--- NOTE | 2017-09-06 21:06 | PDOC2 ---
CARDIOLOGY CONSULT NOTE CHEIF COMPLAINT: Shortness of breath Problems: HPI: Pleasant 62 y.o man presenting with acute dyspnea. Was in his usual state of health, woke up early this a.m with dyspnea. In ER noted to be hypertensive, was given lasix and feels better. Denies any chest pain. Overal the last 2 yrs, he has been having a declining functional capacity due to NICM> PMHX: 1. NICM s/p biV ICD [address] ([facility]) - no improvement in symptoms since then 2. HTN 3. Dyslipidemia 4. Bicuspid aortic valve, s/p [facility] aortic prosthesis 5. CAD s/p PCI remotely SOCHX: No alcohol, tob or illicits. FAMHX: NC CURRENT MEDS: Current Medications Medications (Trade) Dose Ordered Sig/Harshal Start Time Stop Time Status Last Admin Dose Admin Acetaminophen/ Hydrocodone Bitart (Lortab 7.5/325) 1 tab PRN Q6HRS PRN 09/06/17 12:45 09/06/17 12:51 DC Albuterol/ Ipratropium (Duoneb) 3 ml 1X ONCE 09/06/17 10:45 09/06/17 10:46 DC 09/06/17 10:44 3 ML Aspirin (Children'S Aspirin) 324 mg 1X ONCE 09/06/17 08:45 09/06/17 08:46 DC 09/06/17 09:08 324 MG Carvedilol (Coreg) 12.5 mg BIDWMEALS 09/06/17 13:20 09/06/17 17:43 12.5 MG Enoxaparin Sodium (Lovenox 100mg Syringe) 100 mg Q12HR 09/06/17 11:00 09/06/17 11:00 100 MG Enoxaparin Sodium (Lovenox Per Pharmacy Treatment Dosing) 1 each PRN DAILY PRN 09/06/17 10:45 Fluconazole (Diflucan) 150 mg 1X ONCE 09/06/17 20:30 09/06/17 20:31 DC Furosemide (Lasix) 20 mg [id number] 09/06/17 18:30 09/06/17 18:43 20 MG Influenza Virus Vaccine Quadrival (Fluarix Quad [id number] Syringe) 0.5 ml ONCE ONCE 09/06/17 13:00 10/8/17 13:01 DC 09/06/17 13:28 0.5 ML Info (Do NOT chart on this placeholder) 1 each 1X ONCE 09/06/17 12:00 09/06/17 12:01 UNV Lorazepam (Ativan) 0.5 mg 1X ONCE 09/06/17 09:15 09/06/17 09:18 DC 09/06/17 09:23 0.5 MG Multi-Ingredient Mouthwash/Gargle (Gi Cocktail Single Dose) 15 ml 1X ONCE 09/06/17 20:30 09/06/17 20:31 DC Nitroglycerin (Nitrostat) 0.4 mg PRN Q5MIN PRN 09/06/17 08:45 09/07/17 08:44 Ondansetron HCl (Zofran) 4 mg PRN Q8HRS PRN 09/06/17 10:45 09/07/17 10:44 Pneumococcal Polyvalent Vaccine (Do NOT chart on this placeholder) 1 each 1X ONCE 09/06/17 12:00 09/06/17 12:01 UNV Pneumococcal Polyvalent Vaccine (Pneumovax 23) 0.5 ml ONCE ONCE 09/06/17 13:00 09/06/17 13:01 DC 09/06/17 13:29 0.5 ML Sacubitril/ Valsartan (Entresto 49 Mg-51 Mg) 1 tab BID 09/06/17 12:45 09/06/17 13:30 1 TAB Warfarin Sodium (Coumadin Per Physician) 1 each PRN DAILY PRN 09/06/17 18:45 Warfarin Sodium (Coumadin) 10 mg 1X ONCE 09/06/17 19:00 09/06/17 19:01 DC 09/06/17 18:43 10 MG ALLERGIES: Allergies Coded Allergies Type Severity Reaction Last Updated Verified lisinopril Allergy Intermediate rash 03/30/17 Yes ROS: Negative for 09/12 systems reviewed unless otherwise noted above in HPI. PHYSICAL EXAM: Vital Signs: Vital Signs Date Time Temp Pulse Resp B/P (MAP) Pulse Ox O2 Delivery O2 Flow Rate FiO2 09/06/17 18:00 70 18 135/78 (97) 96 Room Air 09/06/17 16:15 5.0 09/06/17 16:00 98.0 98.0 I & O Intake and Output 09/07/17 07:00 Intake Total 350 ml Output Total 2100 ml Balance -1750 ml Intake Oral 350 ml Output Urine Total 2100 ml # Voids 2 Physical Exam: GEN.: No apparent distress. Alert and oriented. HEENT: Head is normocephalic, atraumatic NECK: Supple. LUNGS: Clear to auscultation. HEART: RRR, S1, S2 present. Peripheral pulses intact ABDOMEN: Soft, nontender. Positive bowel sounds. EXTREMITIES: Without any cyanosis. NEUROLOGIC: Normal speech, normal tone PSYCHIATRIC: Normal affect, normal mood. SKIN: No ulcerations DIAGNOSTIC TESTING: CXR with bilateral pulm vasc congestion Lab Laboratory Tests Test 09/06/17 08:40 09/06/17 08:51 09/06/17 09:30 09/06/17 10:30 White Blood Count 9.1 x10^3/uL (4.0-11.0) Red Blood Count 4.59 x10^6/uL (4.30-5.70) Hemoglobin 14.2 g/dL (13.0-17.5) Hematocrit 43.7 % (39.0-53.0) Mean Corpuscular Volume 95 fL (79-100) Mean Corpuscular Hemoglobin 31 pg (25-35) Mean Corpuscular Hemoglobin Concent 32 g/dL (31-37) Red Cell Distribution Width 15.2 % (11.5-14.5) H Platelet Count 276 x10^3/uL (140-400) Neutrophils (%) (Auto) 48 % (31-73) Lymphocytes (%) (Auto) 39 % (24-48) Monocytes (%) (Auto) 9 % (0-9) Eosinophils (%) (Auto) 3 % (0-3) Basophils (%) (Auto) 1 % (0-3) Neutrophils # (Auto) 4.4 x10^3uL (1.8-7.7) Lymphocytes # (Auto) 3.6 x10^3/uL (1.0-4.8) Monocytes # (Auto) 0.8 x10^3/uL (0.0-1.1) Eosinophils # (Auto) 0.3 x10^3/uL (0.0-0.7) Basophils # (Auto) 0.1 x10^3/uL (0.0-0.2) Prothrombin Time 16.9 SEC (11.7-14.0) H Prothromb Time International Ratio 1.5 (0.8-1.1) H Sodium Level 143 mmol/L (136-145) Potassium Level 3.9 mmol/L (3.5-5.1) Chloride Level 107 mmol/L (98-107) Carbon Dioxide Level 24 mmol/L (21-32) Anion Gap 12 (6-14) Blood Urea Nitrogen 23 mg/dL (8-26) Creatinine 1.5 mg/dL (0.7-1.3) H Estimated GFR (Cockcroft-Gault) 47.3 Glucose Level 236 mg/dL (70-99) H Calcium Level 8.8 mg/dL (8.5-10.1) Total Bilirubin 0.3 mg/dL (0.2-1.0) Direct Bilirubin < 0.1 mg/dL (0.0-0.2) Aspartate Amino Transf (AST/SGOT) 29 U/L (15-37) Alkaline Phosphatase 54 U/L (46-116) Creatine Kinase 324 U/L (39-308) H Creatine Kinase MB (Mass) 5.3 ng/mL (0.0-3.6) H Creatine Kinase MB Relative Index 1.6 % (0-4) Total Protein 7.4 g/dL (6.4-8.2) Albumin 4.0 g/dL (3.4-5.0) Lipase 273 U/L (73-393) Thyroid Stimulating Hormone (TSH) 3.036 uIU/mL (0.358-3.74) O2 Saturation 97 % (92-99) Arterial Blood pH 7.27 (7.35-7.45) L Arterial Blood pCO2 at Patient Temp 48 mmHg (35-46) H Arterial Blood pO2 at Patient Temp 101 mmHg (65-108) Arterial Blood HCO3 22 mmol/L (21-28) Arterial Blood Base Excess -6 mmol/L (-3-3) L FiO2 44 Lactic Acid Level 1.1 mmol/L (0.4-2.0) Urine Collection Type Unknown Urine Color Yellow Urine Clarity Clear Urine pH 5.0 Urine Specific [place] 1.010 Urine Protein Negative mg/dL (NEG-TRACE) Urine Glucose (UA) Negative mg/dL (NEG) Urine Ketones (Stick) Negative mg/dL (NEG) Urine Blood Negative (NEG) Urine Nitrite Negative (NEG) Urine Bilirubin Negative (NEG) Urine Urobilinogen Dipstick 0.2 mg/dL (0.2 mg/dL) Urine Leukocyte Esterase Negative (NEG) Urine RBC 0 /HPF (0-2) Urine WBC 0 /HPF (0-4) Urine Squamous Epithelial Cells Occ /LPF Urine Bacteria 0 /HPF (0-FEW) Urine Hyaline Casts Occasional /HPF Urine Opiates Screen Neg (NEG) Urine Methadone Screen Neg (NEG) Urine Barbiturates Neg (NEG) Urine Phencyclidine Screen Neg (NEG) Urine Amphetamine/Methamphetamine Neg (NEG) Urine Benzodiazepines Screen Neg (NEG) Urine Cocaine Screen Neg (NEG) Urine Cannabinoids Screen Neg (NEG) Urine Ethyl Alcohol Neg (NEG) Test 09/06/17 10:48 09/06/17 18:10 O2 Saturation 97 % (92-99) Arterial Blood pH 7.35 (7.35-7.45) Arterial Blood pCO2 at Patient Temp 41 mmHg (35-46) Arterial Blood pO2 at Patient Temp 98 mmHg (65-108) Arterial Blood HCO3 22 mmol/L (21-28) Arterial Blood Base Excess -3 mmol/L (-3-3) FiO2 40 Glucose (Fingerstick) 139 mg/dL (70-99) H ASSESSMENT: 1. Acute on chronic systolic and diastolic HF 2. Hypertensive urgency, flash pulm edema, Etiology unclear 3. Recent stressor due to loss of family member PLAN: 1.Restart home meds including warfarin 2. Obtain [facility] records 3. Plan for device interrogation in a.m to determine his volumes/thoracic impedences Thanks for consult. Will follow. SUZY MONTANEZ MD Sep 06, 2017 21:06
[2017-09-06] MEDS ORDERED: ZOLPIDEM 5 MG TABLET. PO PRN (23:00)
--- NOTE | 2017-09-06 23:32 | HP ---
ADMIT DATE: 09/06/2017 CHIEF COMPLAINT: Shortness of breath. HISTORY OF PRESENT ILLNESS: The patient is a 62-year-old gentleman with significant cardiac history, including mitral valve replacement with artificial valve in 2003, CAD, CHF, with stent placement as well as pacer placement at in the past couple 3 years. He presented to the Emergency Room via EMS with severe shortness of breath. He had declined BiPAP, and EMS actually brought him in, actively bagging. He feels much better at this time. He denies any fevers or chills. His shortness of breath actually had started a couple of days ago and became progressively worse. He denies any significant cough. Denies any upper respiratory symptoms. Denies any chest pain. In the Emergency Room, chest x-ray showed congestive heart failure with mild pulmonary edema. Labs showing an initial troponin of 0.079. The patient was therefore admitted to the ICU for close cardiac monitoring as well as treatment of CHF. PAST MEDICAL HISTORY: CAD, status post WI, recent stent placements about a year ago. CHF, pacemaker/AICD placed; status post mitral valve replacement 10+ years ago. Diabetes mellitus, diet controlled. FAMILY HISTORY: Sibling actually with pacer placement as well. Further details unknown. SOCIAL HISTORY: , living with his . No toxic habits, never smoked. ALLERGIES: LISINOPRIL CAUSING RASH. MEDICATIONS: MAR reconciled with home meds. REVIEW OF SYSTEMS: The patient relates that his breathing is much improved; however, moving from the chair to bed, he becomes severely dyspneic again. Denies any chest pain; any nausea, vomiting or other symptoms in rest of organ system review. PHYSICAL EXAMINATION: VITAL SIGNS: From today show a blood pressure of 135/78, heart rate of 70, respiratory rate at 18. He is afebrile. GENERAL: This is an obese 62-year-old gentleman, alert and oriented, in no acute distress. HEENT: Shows no scleral icterus. Oral mucosa is pink and moist. Dentition is poor. NECK: Supple, without any JVD. LUNGS: Fairly clear bilaterally. CARDIOVASCULAR: Heart has regular rate and rhythm with a metallic click. ABDOMEN: Obese, positive bowel sounds. EXTREMITIES: Show trace edema in the lower extremities. SKIN: Warm, soft and dry. LABORATORY DATA: CBC with a WBC of 9.1, hemoglobin 14.2, platelets of 276. Chemistries with a BUN and creatinine of 23 and 1.5, normal electrolytes, glucose at 236. LFTs within normal. ProBNP at 2797. Initial troponin at 0.079, repeat at 0.418. TSH at 3.03. IMAGING STUDIES: Chest x-ray in the Emergency Room with a pulmonary edema. ASSESSMENT AND PLAN: The patient is a 62-year-old gentleman with CAD, CHF, presenting with CHF exacerbation. He has been started on IV Lasix, with improvement of his respiratory symptoms. We will continue this regimen. His home medications for heart disease will be continued. Cardiology consult has been requested. Dr. Fu saw the patient earlier and further investigation of AICD is planned in the morning. In the meantime, we will continue Lasix therapy. Monitor in's and out's. The patient is on warfarin, secondary to his pacemaker. We will continue therapy. Monitor INR closely as well. CIARA THORPE MD DR: WHITNEY/nts JOB#: [id number] / [id number] ANGELICA
[2017-09-07] MEDS: HYDROcodone/APAP 7.5/325MG 1 TAB TABLET PO PRN (02:12)
[2017-09-07 03:33] LABS: BASO % 1 % (0-3); EOS % 2 % (0-3); HEMATOCRIT 37.6 % (39.0-53.0); HEMOGLOBIN 12.4 g/dL (13.0-17.5); LYMPH # 1.2 x10^3/uL (1.0-4.8); LYMPH % 24 % (24-48); MEAN CORPUSCULAR HEMOGLOBIN 31 pg (25-35); MEAN CORPUSCULAR HGB CONC 33 g/dL (31-37); MEAN CORPUSCULAR VOLUME 94 fL (79-100); MONO % 9 % (0-9); NEUT % 65 % (31-73); PLATELET COUNT 147 x10^3/uL (140-400); RED BLOOD COUNT 3.99 x10^6/uL (4.30-5.70); RED CELL DISTRIBUTION WIDTH 14.5 % (11.5-14.5)
[2017-09-07 03:47] LABS: CALCIUM 8.7 mg/dL (8.5-10.1); CREATININE 1.2 mg/dL (0.7-1.3); GFR 61.1; POTASSIUM 3.7 mmol/L (3.5-5.1)
[2017-09-07 04:00] VITALS: BP 104/64
[2017-09-07 08:00] VITALS: BP 110/69
[2017-09-07] MEDS: FUROSEMIDE 20 MG TABLET PO SCH ×2 (08:58→15:38)
[2017-09-07] MEDS: ASPIRIN ENTERIC COATED 81 MG TABLET.DR. PO SCH (08:59)
[2017-09-07] MEDS: SACUBITRIL/VALSARTAN 49/51MG TABLET. PO SCH ×2 (08:59→21:58)
[2017-09-07] MEDS: PANTOPRAZOLE 40 MG TABLET.DR. PO SCH (08:59)
[2017-09-07] MEDS: EZETIMIBE 10 MG TABLET. PO SCH (08:59)
[2017-09-07] MEDS: CARVEDILOL 12.5 MG TABLET. PO SCH ×2 (09:00→18:56)
[2017-09-07] MEDS: PRAMIPEXOLE 0.25 MG TABLET. PO SCH ×3 (09:00→21:58)
[2017-09-07 10:20] LABS: INR 1.7 (0.8-1.1); PROTHROMBIN TIME PATIENT 19.3 SEC (11.7-14.0)
--- NOTE | 2017-09-07 10:52 | PDOC ---
[facility] [address] APPRAISER 09/07/17 1051: CARDIO Progress Notes Date and Time Date of Service 09/07/2017 Time of Evaluation 1048 Subjective Subjective: No Chest Pain, No Palpitations, No Dizziness, Other (short of breath with walking) Comments: c/o belching and epigastric pain Vitals Vitals Vital Signs Date Time Temp Pulse Resp B/P (MAP) Pulse Ox O2 Delivery O2 Flow Rate FiO2 09/07/17 09:00 70 104/64 09/07/17 08:00 Room Air 09/07/17 08:00 98.9 18 94 98.9 09/07/17 04:00 2.0 Weight Weight [ ] Input and Output Intake and Output Intake and Output 09/08/17 07:00 Intake Total 180 ml Output Total 500 ml Balance -320 ml Intake Oral 180 ml Output Urine Total 500 ml Laboratory Labs Laboratory Tests Test 09/06/17 16:35 09/06/17 18:10 09/07/17 03:20 09/07/17 08:07 Troponin I Quantitative 0.418 ng/mL (0.000-0.055) Glucose (Fingerstick) 139 mg/dL (70-99) 99 mg/dL (70-99) White Blood Count 5.0 x10^3/uL (4.0-11.0) Red Blood Count 3.99 x10^6/uL (4.30-5.70) Hemoglobin 12.4 g/dL (13.0-17.5) Hematocrit 37.6 % (39.0-53.0) Mean Corpuscular Volume 94 fL (79-100) Mean Corpuscular Hemoglobin 31 pg (25-35) Mean Corpuscular Hemoglobin Concent 33 g/dL (31-37) Red Cell Distribution Width 14.5 % (11.5-14.5) Platelet Count 147 x10^3/uL (140-400) Neutrophils (%) (Auto) 65 % (31-73) Lymphocytes (%) (Auto) 24 % (24-48) Monocytes (%) (Auto) 9 % (0-9) Eosinophils (%) (Auto) 2 % (0-3) Basophils (%) (Auto) 1 % (0-3) Neutrophils # (Auto) 3.2 x10^3uL (1.8-7.7) Lymphocytes # (Auto) 1.2 x10^3/uL (1.0-4.8) Monocytes # (Auto) 0.4 x10^3/uL (0.0-1.1) Eosinophils # (Auto) 0.1 x10^3/uL (0.0-0.7) Basophils # (Auto) 0.0 x10^3/uL (0.0-0.2) Sodium Level 143 mmol/L (136-145) Potassium Level 3.7 mmol/L (3.5-5.1) Chloride Level 108 mmol/L (98-107) Carbon Dioxide Level 28 mmol/L (21-32) Anion Gap 7 (6-14) Blood Urea Nitrogen 25 mg/dL (8-26) Creatinine 1.2 mg/dL (0.7-1.3) Estimated GFR (Cockcroft-Gault) 61.1 Glucose Level 107 mg/dL (70-99) Calcium Level 8.7 mg/dL (8.5-10.1) Test 09/07/17 09:30 Prothrombin Time 19.3 SEC (11.7-14.0) Prothromb Time International Ratio 1.7 (0.8-1.1) Physical Exam HEENT: Neck Supple W Full Motion Chest: Symmetric LUNGS: Other (scattered crackles in right posterior base; otherwise clear) Heart: S1S2, other (mechanical valvular click; well healed ICD site) Abdomen: Soft N/T Extremities: No Edema Neurology: alert, oriented, follow commands Assessment Assessment 1. Acute on chronic systolic and diastolic HF 2. Hypertensive urgency, flash pulm edema, Etiology unclear, however now admits to significant salt intake on Thursday 3. Recent stressor due to loss of family member Plan Plan 1. continue oral diuretics 2. may transfer to CCU 3. will need f/u with usual chemistry professor 4. GI consult pending. SUZY MONTANEZ MD 09/07/172126: CARDIO Progress Notes Plan Plan Pt. seen and examined AGree with betty VEHICLE DETAILER note GI w/u pending Supportive care from cardiac standpoint. Will follow WILIAM RUST APRN Sep 07, 2017 10:51 SUZY MONTANEZ MD Sep 07, 2017 21:27
[2017-09-07 11:25] VITALS: BP 112/72
--- NOTE | 2017-09-07 13:39 | PDOC2 ---
GI CONSULT Reason For Consult: Abd pain HPI: HPI: 62 y/o male admitted w/ SOA, CHF, HTN, flash pulmonary edema. He reports two previous episodes of similar symptoms, both of which occurred in March. SOA is associated w/ upper abdominal discomfort. Denies precipitating or alleviating factors. Abd discomfort described as "need to belch." Occasionally has a "wet belch." Has had a decreased appetite, early satiety (after a few bites), and 20 pound weight loss x 3 months. For these symptoms was started on Protonix by PCP ~3 weeks ago; he takes this every morning (but doesn't eat breakfast) and has noted no change in symptoms. No n/v, dysphagia, diarrhea, constipation, hematochezia, melena. No previous EGD. Colonoscopy last year @ [facility] reportedly normal; had colon polyps previously and was told to have colonoscopies yearly because of this. No gallbladder, liver, or pancreas history. H/o AVR and CAD w / stent on Warfarin and ASA. No NSAIDs. H/o "borderline" DM, diet-controlled. Currently w/o abd pain, still has SOA w/ walking. Per RN, vendette wondered about reflux. On PO PPI. PMH: PMH: NICM, CAD, DE, HTN, HLD, DM, AVR, cardiac stent, pacemaker/AICD, appendectomy FH: Family History: Cancer (stomach - father) Social History: Smoke: No ALCOHOL: none Drugs: None ROS: GEN: Denies fevers, chills, sweats HEENT: Denies blurred vision, sore throat CV: Denies chest pain RESP: +SOA GI: Per HPI : Denies hematuria, dysuria ENDO: +weight loss NEURO: Denies confusion, dizziness MSK: Denies weakness, joint pain/swelling SKIN: Denies jaundice, pruritus Vitals: Vitals: Vital Signs Date Time Temp Pulse Resp B/P (MAP) Pulse Ox O2 Delivery O2 Flow Rate FiO2 09/07/17 11:25 98.0 66 18 112/72 (85) 94 98.0 09/07/17 08:00 Room Air 09/07/17 04:00 2.0 Labs: Labs: Laboratory Tests Test 09/06/17 16:35 09/06/17 18:10 09/07/17 03:09/07/17 08:07 Troponin I Quantitative 0.418 ng/mL (0.000-0.055) Glucose (Fingerstick) 139 mg/dL (70-99) 99 mg/dL (70-99) White Blood Count 5.0 x10^3/uL (4.0-11.0) Red Blood Count 3.99 x10^6/uL (4.30-5.70) Hemoglobin 12.4 g/dL (13.0-17.5) Hematocrit 37.6 % (39.0-53.0) Mean Corpuscular Volume 94 fL (79-100) Mean Corpuscular Hemoglobin 31 pg (25-35) Mean Corpuscular Hemoglobin Concent 33 g/dL (31-37) Red Cell Distribution Width 14.5 % (11.5-14.5) Platelet Count 147 x10^3/uL (140-400) Neutrophils (%) (Auto) 65 % (31-73) Lymphocytes (%) (Auto) 24 % (24-48) Monocytes (%) (Auto) 9 % (0-9) Eosinophils (%) (Auto) 2 % (0-3) Basophils (%) (Auto) 1 % (0-3) Neutrophils # (Auto) 3.2 x10^3uL (1.8-7.7) Lymphocytes # (Auto) 1.2 x10^3/uL (1.0-4.8) Monocytes # (Auto) 0.4 x10^3/uL (0.0-1.1) Eosinophils # (Auto) 0.1 x10^3/uL (0.0-0.7) Basophils # (Auto) 0.0 x10^3/uL (0.0-0.2) Sodium Level 143 mmol/L (136-145) Potassium Level 3.7 mmol/L (3.5-5.1) Chloride Level 108 mmol/L (98-107) Carbon Dioxide Level 28 mmol/L (21-32) Anion Gap 7 (6-14) Blood Urea Nitrogen 25 mg/dL (8-26) Creatinine 1.2 mg/dL (0.7-1.3) Estimated GFR (Cockcroft-Gault) 61.1 Glucose Level 107 mg/dL (70-99) Calcium Level 8.7 mg/dL (8.5-10.1) Test 09/07/17 09:30 09/07/17 12:30 Prothrombin Time 19.3 SEC (11.7-14.0) Prothromb Time International Ratio 1.7 (0.8-1.1) Glucose (Fingerstick) 118 mg/dL (70-99) Allergies: Coded Allergies: lisinopril (Verified Allergy, Intermediate, rash, 03/30/17) Medications: Current Medications Medications (Trade) Dose Ordered Sig/Harshal Route PRN Reason Start Time Stop Time Status Last Admin Dose Admin Furosemide (Lasix) 20 mg [id number] PO 09/06/17 18:30 09/07/17 08:58 Warfarin Sodium (Coumadin) 10 mg 1X ONCE PO 09/06/17 19:00 09/06/17 19:01 DC 09/06/17 18:43 Warfarin Sodium (Coumadin Per Physician) 1 each PRN DAILY PRN MC SEE COMMENTS 09/06/17 18:45 09/07/17 08:56 Multi-Ingredient Mouthwash/Gargle (Gi Cocktail Single Dose) 15 ml 1X ONCE SWSW 09/06/17 20:30 09/06/17 20:31 DC 09/06/17 21:41 Fluconazole (Diflucan) 150 mg 1X ONCE PO 09/06/17 20:30 09/06/17 20:31 DC 09/06/17 21:40 Aspirin (Ecotrin) 81 mg DAILY PO 09/07/17 09:00 09/07/17 08:59 EZETIMIBE (Zetia) 10 mg DAILY PO 09/07/17 09:00 09/07/17 08:59 Pantoprazole Sodium (Protonix) 40 mg DAILYAC PO 09/07/17 07:30 09/07/17 08:59 Pramipexole Dihydrochloride (miraPEX) 0.25 mg TID PO 09/07/17 09:00 09/07/17 09:00 Imaging: Imaging: CXR IMPRESSION: Congestive heart failure with mild pulmonary edema. PE: GEN: NAD, up to chair HEENT: Atraumatic, PERRL LUNGS: clear anteriorly HEART: irregular ABD: NABS, S/ND/NT EXTREMITY: No edema SKIN: No rashes, no jaundice NEURO/PSYCH: A & O 3 A/P: A/P: SOA CHF, HTN, flash pulmonary edema -per cardiology -additional h/o AVR, CAD on Warfarin and ASA Upper abd discomfort, early satiety, weight loss -discomfort associated w/ SOA on two previous occasions -not eating much x 3 months, has lost 20 pounds -has a feeling of "needing to belch" -PCP initiated PPI therapy 3 weeks ago -no previous EGD CRC screen, h/o polyps -reports normal colonoscopy @ [facility] last year, was previously told to have annual colonoscopies -- Will review w/ Dr. Jha. Symptoms possibly related to GERD. Would continue PPI, consider EGD. AVA HOWARD Sep 07, 2017 13:38
--- NOTE | 2017-09-07 13:43 | PDOC ---
PROGRESS NOTES Chief Complaint Chief Complaint dyspnea 2/2 CHF systolic exacerbation likely abd pain, 2/2 GERD, gastritis, or gallbladder problem? h/o CAD with PCI ICD PPM avr ON coumadin CHRONIC PAFIb KEVAN on ckd3, vasomotor morbid obeisity, BMI 32 HTN urgency elevated troponin with CHF LIKELY plan: fu with card echo was done with own card 04/2017, need records? cont home meds lasix 20mg bid for now gi consult as pt required US abd cont warfarin , INR daily , now 1.7, on lovenox bid for now, dc when INR >2 tmr weight daily intake and output History of Present Illness History of Present Illness ROS: NO fever, chills, sob or chest pain sob much better today, off NC bl leg no edema has epigastric abd pain for a few months, and was in [facility] 2 times for it, on protonix, but never fu GI, requires to see GI here. home lasix 20mg bid Vitals Vitals Vital Signs Date Time Temp Pulse Resp B/P (MAP) Pulse Ox O2 Delivery O2 Flow Rate FiO2 09/07/17 11:25 98.0 66 18 112/72 (85) 94 98.0 09/07/17 08:00 Room Air 09/07/17 04:00 2.0 Physical Exam General: Alert, Oriented X3, Cooperative Heart: Regular rate, Normal S1, Normal S2 Lungs: Clear Abdomen: Normal bowel sounds, Soft Extremities: No clubbing, No cyanosis, No edema Skin: No rashes Labs LABS Laboratory Tests Test 09/06/17 16:35 09/06/17 18:10 09/07/17 03:20 09/07/17 08:07 Troponin I Quantitative 0.418 ng/mL (0.000-0.055) Glucose (Fingerstick) 139 mg/dL (70-99) 99 mg/dL (70-99) White Blood Count 5.0 x10^3/uL (4.0-11.0) Red Blood Count 3.99 x10^6/uL (4.30-5.70) Hemoglobin 12.4 g/dL (13.0-17.5) Hematocrit 37.6 % (39.0-53.0) Mean Corpuscular Volume 94 fL (79-100) Mean Corpuscular Hemoglobin 31 pg (25-35) Mean Corpuscular Hemoglobin Concent 33 g/dL (31-37) Red Cell Distribution Width 14.5 % (11.5-14.5) Platelet Count 147 x10^3/uL (140-400) Neutrophils (%) (Auto) 65 % (31-73) Lymphocytes (%) (Auto) 24 % (24-48) Monocytes (%) (Auto) 9 % (0-9) Eosinophils (%) (Auto) 2 % (0-3) Basophils (%) (Auto) 1 % (0-3) Neutrophils # (Auto) 3.2 x10^3uL (1.8-7.7) Lymphocytes # (Auto) 1.2 x10^3/uL (1.0-4.8) Monocytes # (Auto) 0.4 x10^3/uL (0.0-1.1) Eosinophils # (Auto) 0.1 x10^3/uL (0.0-0.7) Basophils # (Auto) 0.0 x10^3/uL (0.0-0.2) Sodium Level 143 mmol/L (136-145) Potassium Level 3.7 mmol/L (3.5-5.1) Chloride Level 108 mmol/L (98-107) Carbon Dioxide Level 28 mmol/L (21-32) Anion Gap 7 (6-14) Blood Urea Nitrogen 25 mg/dL (8-26) Creatinine 1.2 mg/dL (0.7-1.3) Estimated GFR (Cockcroft-Gault) 61.1 Glucose Level 107 mg/dL (70-99) Calcium Level 8.7 mg/dL (8.5-10.1) Test 09/07/17 09:30 09/07/17 12:30 Prothrombin Time 19.3 SEC (11.7-14.0) Prothromb Time International Ratio 1.7 (0.8-1.1) Glucose (Fingerstick) 118 mg/dL (70-99) Assessment and Plan Assessmemt and Plan Problems Medical Problems: (1) Acute exacerbation of congestive heart failure Status: Acute Problems: Comment Review of Relevant I have reviewed the following items katrin (where applicable) has been applied. Labs Laboratory Tests Test 09/06/17 08:40 09/06/17 08:51 09/06/17 09:30 09/06/17 10:30 White Blood Count 9.1 x10^3/uL (4.0-11.0) Red Blood Count 4.59 x10^6/uL (4.30-5.70) Hemoglobin 14.2 g/dL (13.0-17.5) Hematocrit 43.7 % (39.0-53.0) Mean Corpuscular Volume 95 fL (79-100) Mean Corpuscular Hemoglobin 31 pg (25-35) Mean Corpuscular Hemoglobin Concent 32 g/dL (31-37) Red Cell Distribution Width 15.2 % (11.5-14.5) Platelet Count 276 x10^3/uL (140-400) Neutrophils (%) (Auto) 48 % (31-73) Lymphocytes (%) (Auto) 39 % (24-48) Monocytes (%) (Auto) 9 % (0-9) Eosinophils (%) (Auto) 3 % (0-3) Basophils (%) (Auto) 1 % (0-3) Neutrophils # (Auto) 4.4 x10^3uL (1.8-7.7) Lymphocytes # (Auto) 3.6 x10^3/uL (1.0-4.8) Monocytes # (Auto) 0.8 x10^3/uL (0.0-1.1) Eosinophils # (Auto) 0.3 x10^3/uL (0.0-0.7) Basophils # (Auto) 0.1 x10^3/uL (0.0-0.2) Prothrombin Time 16.9 SEC (11.7-14.0) Prothromb Time International Ratio 1.5 (0.8-1.1) Sodium Level 143 mmol/L (136-145) Potassium Level 3.9 mmol/L (3.5-5.1) Chloride Level 107 mmol/L (98-107) Carbon Dioxide Level 24 mmol/L (21-32) Anion Gap 12 (6-14) Blood Urea Nitrogen 23 mg/dL (8-26) Creatinine 1.5 mg/dL (0.7-1.3) Estimated GFR (Cockcroft-Gault) 47.3 Glucose Level 236 mg/dL (70-99) Calcium Level 8.8 mg/dL (8.5-10.1) Magnesium Level 2.1 mg/dL (1.8-2.4) Total Bilirubin 0.3 mg/dL (0.2-1.0) Direct Bilirubin < 0.1 mg/dL (0.0-0.2) Aspartate Amino Transf (AST/SGOT) 29 U/L (15-37) Alanine Aminotransferase (ALT/SGPT) 32 U/L (16-63) Alkaline Phosphatase 54 U/L (46-116) Creatine Kinase 324 U/L (39-308) Creatine Kinase MB (Mass) 5.3 ng/mL (0.0-3.6) Creatine Kinase MB Relative Index 1.6 % (0-4) Troponin I Quantitative 0.079 ng/mL (0.000-0.055) PR-Vov-A-Type Natriuretic Peptide 2797 pg/mL (0-124) Total Protein 7.4 g/dL (6.4-8.2) Albumin 4.0 g/dL (3.4-5.0) Lipase 273 U/L (73-393) Thyroid Stimulating Hormone (TSH) 3.036 uIU/mL (0.358-3.74) O2 Saturation 97 % (92-99) Arterial Blood pH 7.27 (7.35-7.45) Arterial Blood pCO2 at Patient Temp 48 mmHg (35-46) Arterial Blood pO2 at Patient Temp 101 mmHg (65-108) Arterial Blood HCO3 22 mmol/L (21-28) Arterial Blood Base Excess -6 mmol/L (-3-3) FiO2 44 Lactic Acid Level 1.1 mmol/L (0.4-2.0) Urine Collection Type Unknown Urine Color Yellow Urine Clarity Clear Urine pH 5.0 Urine Specific [place] 1.010 Urine Protein Negative mg/dL (NEG-TRACE) Urine Glucose (UA) Negative mg/dL (NEG) Urine Ketones (Stick) Negative mg/dL (NEG) Urine Blood Negative (NEG) Urine Nitrite Negative (NEG) Urine Bilirubin Negative (NEG) Urine Urobilinogen Dipstick 0.2 mg/dL (0.2 mg/dL) Urine Leukocyte Esterase Negative (NEG) Urine RBC 0 /HPF (0-2) Urine WBC 0 /HPF (0-4) Urine Squamous Epithelial Cells Occ /LPF Urine Bacteria 0 /HPF (0-FEW) Urine Hyaline Casts Occasional /HPF Urine Opiates Screen Neg (NEG) Urine Methadone Screen Neg (NEG) Urine Barbiturates Neg (NEG) Urine Phencyclidine Screen Neg (NEG) Urine Amphetamine/Methamphetamine Neg (NEG) Urine Benzodiazepines Screen Neg (NEG) Urine Cocaine Screen Neg (NEG) Urine Cannabinoids Screen Neg (NEG) Urine Ethyl Alcohol Neg (NEG) Test 09/06/17 10:48 09/06/17 16:35 09/06/17 18:10 09/07/17 03:20 O2 Saturation 97 % (92-99) Arterial Blood pH 7.35 (7.35-7.45) Arterial Blood pCO2 at Patient Temp 41 mmHg (35-46) Arterial Blood pO2 at Patient Temp 98 mmHg (65-108) Arterial Blood HCO3 22 mmol/L (21-28) Arterial Blood Base Excess -3 mmol/L (-3-3) FiO2 40 Troponin I Quantitative 0.418 ng/mL (0.000-0.055) Glucose (Fingerstick) 139 mg/dL (70-99) White Blood Count 5.0 x10^3/uL (4.0-11.0) Red Blood Count 3.99 x10^6/uL (4.30-5.70) Hemoglobin 12.4 g/dL (13.0-17.5) Hematocrit 37.6 % (39.0-53.0) Mean Corpuscular Volume 94 fL (79-100) Mean Corpuscular Hemoglobin 31 pg (25-35) Mean Corpuscular Hemoglobin Concent 33 g/dL (31-37) Red Cell Distribution Width 14.5 % (11.5-14.5) Platelet Count 147 x10^3/uL (140-400) Neutrophils (%) (Auto) 65 % (31-73) Lymphocytes (%) (Auto) 24 % (24-48) Monocytes (%) (Auto) 9 % (0-9) Eosinophils (%) (Auto) 2 % (0-3) Basophils (%) (Auto) 1 % (0-3) Neutrophils # (Auto) 3.2 x10^3uL (1.8-7.7) Lymphocytes # (Auto) 1.2 x10^3/uL (1.0-4.8) Monocytes # (Auto) 0.4 x10^3/uL (0.0-1.1) Eosinophils # (Auto) 0.1 x10^3/uL (0.0-0.7) Basophils # (Auto) 0.0 x10^3/uL (0.0-0.2) Sodium Level 143 mmol/L (136-145) Potassium Level 3.7 mmol/L (3.5-5.1) Chloride Level 108 mmol/L (98-107) Carbon Dioxide Level 28 mmol/L (21-32) Anion Gap 7 (6-14) Blood Urea Nitrogen 25 mg/dL (8-26) Creatinine 1.2 mg/dL (0.7-1.3) Estimated GFR (Cockcroft-Gault) 61.1 Glucose Level 107 mg/dL (70-99) Calcium Level 8.7 mg/dL (8.5-10.1) Test 09/07/17 08:07 09/07/17 09:30 09/07/17 12:30 Glucose (Fingerstick) 99 mg/dL (70-99) 118 mg/dL (70-99) Prothrombin Time 19.3 SEC (11.7-14.0) Prothromb Time International Ratio 1.7 (0.8-1.1) Laboratory Tests Test 09/06/17 16:35 09/06/17 18:10 09/07/17 03:20 09/07/17 08:07 Troponin I Quantitative 0.418 ng/mL (0.000-0.055) Glucose (Fingerstick) 139 mg/dL (70-99) 99 mg/dL (70-99) White Blood Count 5.0 x10^3/uL (4.0-11.0) Red Blood Count 3.99 x10^6/uL (4.30-5.70) Hemoglobin 12.4 g/dL (13.0-17.5) Hematocrit 37.6 % (39.0-53.0) Mean Corpuscular Volume 94 fL (79-100) Mean Corpuscular Hemoglobin 31 pg (25-35) Mean Corpuscular Hemoglobin Concent 33 g/dL (31-37) Red Cell Distribution Width 14.5 % (11.5-14.5) Platelet Count 147 x10^3/uL (140-400) Neutrophils (%) (Auto) 65 % (31-73) Lymphocytes (%) (Auto) 24 % (24-48) Monocytes (%) (Auto) 9 % (0-9) Eosinophils (%) (Auto) 2 % (0-3) Basophils (%) (Auto) 1 % (0-3) Neutrophils # (Auto) 3.2 x10^3uL (1.8-7.7) Lymphocytes # (Auto) 1.2 x10^3/uL (1.0-4.8) Monocytes # (Auto) 0.4 x10^3/uL (0.0-1.1) Eosinophils # (Auto) 0.1 x10^3/uL (0.0-0.7) Basophils # (Auto) 0.0 x10^3/uL (0.0-0.2) Sodium Level 143 mmol/L (136-145) Potassium Level 3.7 mmol/L (3.5-5.1) Chloride Level 108 mmol/L (98-107) Carbon Dioxide Level 28 mmol/L (21-32) Anion Gap 7 (6-14) Blood Urea Nitrogen 25 mg/dL (8-26) Creatinine 1.2 mg/dL (0.7-1.3) Estimated GFR (Cockcroft-Gault) 61.1 Glucose Level 107 mg/dL (70-99) Calcium Level 8.7 mg/dL (8.5-10.1) Test 09/07/17 09:30 09/07/17 12:30 Prothrombin Time 19.3 SEC (11.7-14.0) Prothromb Time International Ratio 1.7 (0.8-1.1) Glucose (Fingerstick) 118 mg/dL (70-99) Medications Current Medications Furosemide (Lasix) 40 mg 1X ONCE IVP Last administered on 09/06/17 08:44; Start 09/06/17 at 08:45; Stop 09/06/17 at 08:46; Status DC Aspirin (Children'S Aspirin) 324 mg 1X ONCE PO Last administered on 09/06/17 09:08; Start 09/06/17 at 08:45; Stop 09/06/17 at 08:46; Status DC Nitroglycerin (Nitrostat) 0.4 mg PRN Q5MIN PRN SL CP RATING > 1/10; Start 09/06 at 08:45; Stop 09/06/17 at 23:02; Status DC Furosemide (Lasix) 40 mg STK-MED ONCE .ROUTE ; Start 09/06/17 at 08:37; Stop at 08:38; Status DC Lorazepam (Ativan) 0.5 mg 1X ONCE IV Last administered on 09/06/17 09:23; Start 09/06/17 at 09:15; Stop 09/06/17 at 09:18; Status DC Albuterol/ Ipratropium (Duoneb) 3 ml 1X ONCE NEB Last administered on 10:44; Start 09/06/17 at 10:45; Stop 09/06/17 at 10:46; Status DC Enoxaparin Sodium (Lovenox Per Pharmacy Treatment Dosing) 1 each PRN DAILY PRN MC SEE COMMENTS; Start 09/06/17 at 10:45 Enoxaparin Sodium (Lovenox 100mg Syringe) 100 mg Q12HR SQ Last administered on 09/07/17 09:02; Start 09/06/17 at 11:00 Ondansetron HCl (Zofran) 4 mg PRN Q8HRS PRN IV NAUSEA/VOMITING; Start 09/06/17 at 10:45; Stop 09/07/17 at 10:44; Status DC Info (Do NOT chart on this placeholder) 1 each 1X ONCE MC ; Start 09/06/17 at 12:00; Stop 09/06/17 at 12:01; Status UNV Pneumococcal Polyvalent Vaccine (Do NOT chart on this placeholder) 1 each 1X ONCE MC ; Start 09/06/17 at 12:00; Stop 09/06/17 at 12:01; Status UNV Influenza Virus Vaccine Quadrival (Fluarix Quad [id number] Syringe) 0.5 ml ONCE ONCE VAX IM Last administered on 09/06/17 13:28; Start 09/06/17 at 13:00; Stop 09/06/17 at 13:01; Status DC Pneumococcal Polyvalent Vaccine (Pneumovax 23) 0.5 ml ONCE ONCE VAX IM Last administered on 09/06/17 13:29; Start 09/06/17 at 13:00; Stop 09/06/17 at 13:01 ; Status DC Acetaminophen/ Hydrocodone Bitart (Lortab 7.5/325) 1 tab PRN Q6HRS PRN PO PAIN Last administered on 09/07/17 02:12; Start 09/06/17 at 12:45 Acetaminophen/ Hydrocodone Bitart (Lortab 7.5/325) 1 tab PRN Q6HRS PRN PO PAIN ; Start 09/06/17 at 12:45; Stop 09/06/17 at 12:51; Status DC Sacubitril/ Valsartan (Entresto 49 Mg-51 Mg) 1 tab BID PO Last administered on 09/07/17 08:59; Start 09/06/17 at 12:45 Carvedilol (Coreg) 12.5 mg BIDWMEALS PO Last administered on 09/07/17 09:00; Start 09/06/17 at 13:20 Furosemide (Lasix) 20 mg BID92 PO Last administered on 09/07/17 08:58; Start 09/06/17 at 18:30 Warfarin Sodium (Coumadin) 5 mg SuMoWeThFrSa@1600 PO ; Start 09/07/17 at 16:00 Warfarin Sodium (Coumadin) 6 mg QTU PO ; Start 09/08/17 at 16:00 Warfarin Sodium (Coumadin) 10 mg 1X ONCE PO Last administered on 09/06/17 18: 43; Start 09/06/17 at 19:00; Stop 09/06/17 at 19:01; Status DC Warfarin Sodium (Coumadin Per Physician) 1 each PRN DAILY PRN MC SEE COMMENTS Last administered on 09/07/17 08:56; Start 09/06/17 at 18:45 Multi-Ingredient Mouthwash/Gargle (Gi Cocktail Single Dose) 15 ml 1X ONCE SWSW Last administered on 09/06/17 21:41; Start 09/06/17 at 20:30; Stop 09/06/17 at 20:31; Status DC Fluconazole (Diflucan) 150 mg 1X ONCE PO Last administered on 09/06/17 21:40 ; Start 09/06/17 at 20:30; Stop 09/06/17 at 20:31; Status DC Aspirin (Ecotrin) 81 mg DAILY PO Last administered on 09/07/17 08:59; Start 09/07/17 at 09:00 EZETIMIBE (Zetia) 10 mg DAILY PO Last administered on 09/07/17 08:59; Start 09/07/17 at 09:00 Nitroglycerin (Nitrostat) 0.4 mg PRN Q15MIN PRN SL CHEST PAIN; Start 09/06/17 at 23:00 Pantoprazole Sodium (Protonix) 40 mg DAILYAC PO Last administered on 09/07/17 08:59; Start 09/07/17 at 07:30 Pramipexole Dihydrochloride (miraPEX) 0.25 mg TID PO Last administered on 09:00; Start 09/07/17 at 09:00 Atorvastatin Calcium (Lipitor) 80 mg HS PO ; Start 09/07/17 at 21:00 Zolpidem Tartrate (Ambien) 5 mg PRN QHS PRN PO INSOMINIA,MRX1 IF NEEDED; Start 09/06/17 at 23:00 Active Scripts Active Reported Coumadin (Warfarin Sodium) 6 Mg Tablet 1 Tab PO QTU Coumadin (Warfarin Sodium) 5 Mg Tablet 1 Tab PO DAILY Lasix (Furosemide) 20 Mg Tablet 20 Mg PO BID NITROGLYCERIN SubLingual (Nitroglycerin) 0.4 Mg Tab.subl 1 Tab SL UD PRN Metformin Hcl 500 Mg Tablet 500 Mg PO BIDWMEALS Zetia (Ezetimibe) 10 Mg Tablet 1 Tab PO DAILY Pantoprazole Sodium 40 Mg Tablet.dr 1 Tab PO DAILY Entresto 49 mg-51 mg Tablet (Sacubitril/Valsartan) 1 Each Tablet 1 Each PO BID Zolpidem Tartrate 10 Mg Tablet 1 Tab PO QHS PRN Mirapex (Pramipexole Di-Hcl) 0.25 Mg Tablet 0.25 Mg PO TID Hydrocodone-Apap 7.5-325 (Hydrocodone Bit/Acetaminophen) 1 Each Tablet 1 Tab PO PRN Q6HRS PRN Crestor (Rosuvastatin Calcium) 10 Mg Tablet 40 Mg PO DAILY Aspir-Low (Aspirin) 81 Mg Tablet.dr 81 Mg PO DAILY One Daily For Men Tablet (Multivits-Minerals/Fa/Lycopene) 1 Each Tablet 1 Each PO DAILY Zyloprim (Allopurinol) 300 Mg Tablet 300 Mg PO DAILY Coreg (Carvedilol) 25 Mg Tablet 12.5 Mg PO BID Vitals/I & O Vital Sign - Last 24 Hours 09/06/17 09/06/17 09/06/17 09/06/17 14:00 15:00 16:00 16:15 Temp 98.0 98.0 Pulse 67 70 69 Resp 18 18 18 B/P (MAP) 114/65 (81) 108/68 (81) 120/70 (87) Pulse Ox 99 99 98 O2 Delivery Nasal Cannula Nasal Cannula Nasal Cannula Nasal Cannula O2 Flow Rate 2.0 2.0 2.0 5.0 09/06/17 09/06/17 09/06/17 09/06/17 17:43 17:44 18:00 19:45 Pulse 75 75 70 Resp 18 18 B/P (MAP) 159/97 159/97 (117) 135/78 (97) Pulse Ox 95 96 O2 Delivery Room Air Room Air Room Air 09/06/17 09/06/17 09/06/17 09/07/17 19:45 21:39 23:00 02:12 Temp 98.7 98.7 98.7 98.7 Pulse 68 68 89 Resp 20 20 16 B/P (MAP) 134/75 (94) 134/75 125/69 (87) Pulse Ox 99 97 100 O2 Delivery Room Air Nasal Cannula Nasal Cannula O2 Flow Rate 2.0 2.0 09/07/17 09/07/17 09/07/17 09/07/17 03:12 04:00 08:00 08:00 Temp 98.7 98.9 98.7 98.9 Pulse 70 67 Resp 14 14 18 B/P (MAP) 104/64 (77) 110/69 (83) Pulse Ox 100 100 94 O2 Delivery Room Air Nasal Cannula Room Air O2 Flow Rate 2.0 2.0 09/07/17 09/07/17 09/07/17 08:59 09:00 11:25 Temp 98.0 98.0 Pulse 70 70 66 Resp 18 B/P (MAP) 104/64 104/64 112/72 (85) Pulse Ox 94 Intake and Output 09/07/17 09/07/17 09/08/17 15:00 23:00 07:00 Intake Total 180 ml Output Total 500 ml Balance -320 ml SERAFIN CARNEY MD Sep 07, 2017 13:43
[2017-09-07] MEDS ORDERED: ONDANSETRON PF 4 MG/2 ML VIAL. IV PRN (13:45)
[2017-09-07] MEDS ORDERED: hydrALAZINE 20 MG/ML VIAL. IVP PRN (13:45)
[2017-09-07] MEDS ORDERED: DOCUSATE SODIUM 100 MG CAPSULE. PO PRN (13:45)
[2017-09-07] MEDS ORDERED: traMADol 50 MG TABLET PO PRN (13:45)
[2017-09-07] MEDS ORDERED: ACETAMINOPHEN 325 MG TABLET. PO PRN (13:45)
[2017-09-07 16:00] VITALS: BP 114/61
[2017-09-07] MEDS ORDERED: WARFARIN 5 MG TABLET. PO SCH (16:00)
[2017-09-07] MEDS ORDERED: WARFARIN 6 MG TABLET. PO ONE (16:00)
[2017-09-07 20:00] VITALS: BP 146/73
[2017-09-07] MEDS: ATORVASTATIN CALCIUM 40 MG TABLET. PO SCH (21:58)
[2017-09-07 23:45] VITALS: BP 104/63
[2017-09-08 04:00] VITALS: BP 149/78
[2017-09-08 04:53] LABS: BASO % 0 % (0-3); EOS % 2 % (0-3); HEMATOCRIT 39.1 % (39.0-53.0); LYMPH # 1.2 x10^3/uL (1.0-4.8); LYMPH % 21 % (24-48); MEAN CORPUSCULAR HEMOGLOBIN 31 pg (25-35); MEAN CORPUSCULAR HGB CONC 33 g/dL (31-37); MEAN CORPUSCULAR VOLUME 93 fL (79-100); MONO % 9 % (0-9); NEUT % 68 % (31-73); PLATELET COUNT 158 x10^3/uL (140-400); RED BLOOD COUNT 4.21 x10^6/uL (4.30-5.70); RED CELL DISTRIBUTION WIDTH 14.8 % (11.5-14.5); WHITE BLOOD COUNT 5.4 x10^3/uL (4.0-11.0)
[2017-09-08 05:12] LABS: INR 2.3 (0.8-1.1); PROTHROMBIN TIME PATIENT 23.7 SEC (11.7-14.0)
[2017-09-08 05:46] LABS: CREATININE 1.2 mg/dL (0.7-1.3); GFR 61.1; POTASSIUM 3.7 mmol/L (3.5-5.1)
[2017-09-08 08:00] VITALS: BP 141/80
[2017-09-08] MEDS: FUROSEMIDE 20 MG TABLET PO SCH ×2 (08:28→14:43)
[2017-09-08] MEDS: PRAMIPEXOLE 0.25 MG TABLET. PO SCH ×3 (08:28→20:50)
[2017-09-08] MEDS: PANTOPRAZOLE 40 MG TABLET.DR. PO SCH (08:28)
[2017-09-08] MEDS: CARVEDILOL 12.5 MG TABLET. PO SCH ×2 (08:29→20:51)
[2017-09-08] MEDS: ASPIRIN ENTERIC COATED 81 MG TABLET.DR. PO SCH (08:29)
[2017-09-08] MEDS: EZETIMIBE 10 MG TABLET. PO SCH (08:29)
[2017-09-08] MEDS: SACUBITRIL/VALSARTAN 49/51MG TABLET. PO SCH ×2 (08:30→20:51)
--- NOTE | 2017-09-08 09:24 | RAD ---
Exam performed: Complete abdominal sonogram. Indication:Upright abdominal pain and bloating Date of exam: 09/07/17 Technique:Real time jurado scale imaging of the abdomen is performed and images are obtained. Findings : Hepatomegaly with diffuse hepatic steatosis. Small area of focal fatty sparing seen adjacent to the gallbladder. The liver measures 19.2 cm in length. No intra- or extrahepatic biliary dilatation is present. The common duct measures 4.1 . The gallbladder appears normal. The visualized portions of the pancreas are unremarkable. The spleen is normal in size. Both kidneys are unremarkable without evidence for hydronephrosis. Right kidney measures 12.1 x 5.4 x 3.7 and the left kidney measures 12.6 x 5.4 x 3.5. The inferior vena cava and aorta are poorly visualized. Impression: Hepatomegaly with diffuse hepatic steatosis and an area of focal fatty sparing. No additional abnormality seen.
[2017-09-08] MEDS: ALLOPURINOL 300 MG TABLET. PO SCH (10:17)
[2017-09-08 12:00] VITALS: BP 138/78
[2017-09-08] MEDS: IV RINGERS,LACTATED 1000ML 1,000 ML IV SCH (13:00)
[2017-09-08] MEDS ORDERED: PROPOFOL 20 ML IV ONE (13:02)
--- NOTE | 2017-09-08 13:29 | PDOC ---
PROGRESS NOTES Chief Complaint Chief Complaint dyspnea 2/2 CHF systolic exacerbation likely abd pain, 2/2 GERD, gastritis, or gallbladder problem? h/o CAD with PCI ICD PPM avr ON coumadin CHRONIC PAFIb KEVAN on ckd3, vasomotor morbid obeisity, BMI 32 HTN urgency elevated troponin with CHF LIKELY bottom skin rash fatty liver plan: fu with card echo was done with own card 04/2017, need records? cont home meds lasix 20mg bid for now gi consult as pt required, EGD today US abd fatty liver cont warfarin , INR daily ,dc lovenox bid. cont warfarin post EGD weight daily intake and output ADD steroid cream for bottom rash ok to transfer out of ICU History of Present Illness History of Present Illness ROS: NO fever, chills, sob or chest pain sob much better today, off NC bl leg no edema has epigastric abd pain for a few months, and was in [facility] 2 times for it, on protonix, but never fu GI, requires to see GI here. home lasix 20mg bid bottom skin rash Vitals Vitals Vital Signs Date Time Temp Pulse Resp B/P (MAP) Pulse Ox O2 Delivery O2 Flow Rate FiO2 09/08/17 12:51 97.6 75 18 97 97.6 09/08/17 12:51 Room Air 2.0 09/08/17 12:00 138/78 (98) Physical Exam General: Alert, Oriented X3, Cooperative Heart: Regular rate, Normal S1, Normal S2 Lungs: Clear Abdomen: Normal bowel sounds, Soft Extremities: No clubbing, No cyanosis, No edema Skin: No rashes Labs LABS Laboratory Tests Test 09/07/17 18:47 09/07/17 22:05 09/08/17 04:20 09/08/17 12:25 Glucose (Fingerstick) 107 mg/dL (70-99) 124 mg/dL (70-99) 148 mg/dL (70-99) White Blood Count 5.4 x10^3/uL (4.0-11.0) Red Blood Count 4.21 x10^6/uL (4.30-5.70) Hemoglobin 13.0 g/dL (13.0-17.5) Hematocrit 39.1 % (39.0-53.0) Mean Corpuscular Volume 93 fL (79-100) Mean Corpuscular Hemoglobin 31 pg (25-35) Mean Corpuscular Hemoglobin Concent 33 g/dL (31-37) Red Cell Distribution Width 14.8 % (11.5-14.5) Platelet Count 158 x10^3/uL (140-400) Neutrophils (%) (Auto) 68 % (31-73) Lymphocytes (%) (Auto) 21 % (24-48) Monocytes (%) (Auto) 9 % (0-9) Eosinophils (%) (Auto) 2 % (0-3) Basophils (%) (Auto) 0 % (0-3) Neutrophils # (Auto) 3.7 x10^3uL (1.8-7.7) Lymphocytes # (Auto) 1.2 x10^3/uL (1.0-4.8) Monocytes # (Auto) 0.5 x10^3/uL (0.0-1.1) Eosinophils # (Auto) 0.1 x10^3/uL (0.0-0.7) Basophils # (Auto) 0.0 x10^3/uL (0.0-0.2) Prothrombin Time 23.7 SEC (11.7-14.0) Prothromb Time International Ratio 2.3 (0.8-1.1) Sodium Level 143 mmol/L (136-145) Potassium Level 3.7 mmol/L (3.5-5.1) Chloride Level 107 mmol/L (98-107) Carbon Dioxide Level 28 mmol/L (21-32) Anion Gap 8 (6-14) Blood Urea Nitrogen 26 mg/dL (8-26) Creatinine 1.2 mg/dL (0.7-1.3) Estimated GFR (Cockcroft-Gault) 61.1 Glucose Level 122 mg/dL (70-99) Calcium Level 9.0 mg/dL (8.5-10.1) Assessment and Plan Assessmemt and Plan Problems Medical Problems: (1) Acute exacerbation of congestive heart failure Status: Acute Problems: Comment Review of Relevant I have reviewed the following items katrin (where applicable) has been applied. Labs Laboratory Tests Test 09/06/17 16:35 09/06/17 18:10 09/07/17 03:20 09/07/17 08:07 Troponin I Quantitative 0.418 ng/mL (0.000-0.055) Glucose (Fingerstick) 139 mg/dL (70-99) 99 mg/dL (70-99) White Blood Count 5.0 x10^3/uL (4.0-11.0) Red Blood Count 3.99 x10^6/uL (4.30-5.70) Hemoglobin 12.4 g/dL (13.0-17.5) Hematocrit 37.6 % (39.0-53.0) Mean Corpuscular Volume 94 fL (79-100) Mean Corpuscular Hemoglobin 31 pg (25-35) Mean Corpuscular Hemoglobin Concent 33 g/dL (31-37) Red Cell Distribution Width 14.5 % (11.5-14.5) Platelet Count 147 x10^3/uL (140-400) Neutrophils (%) (Auto) 65 % (31-73) Lymphocytes (%) (Auto) 24 % (24-48) Monocytes (%) (Auto) 9 % (0-9) Eosinophils (%) (Auto) 2 % (0-3) Basophils (%) (Auto) 1 % (0-3) Neutrophils # (Auto) 3.2 x10^3uL (1.8-7.7) Lymphocytes # (Auto) 1.2 x10^3/uL (1.0-4.8) Monocytes # (Auto) 0.4 x10^3/uL (0.0-1.1) Eosinophils # (Auto) 0.1 x10^3/uL (0.0-0.7) Basophils # (Auto) 0.0 x10^3/uL (0.0-0.2) Sodium Level 143 mmol/L (136-145) Potassium Level 3.7 mmol/L (3.5-5.1) Chloride Level 108 mmol/L (98-107) Carbon Dioxide Level 28 mmol/L (21-32) Anion Gap 7 (6-14) Blood Urea Nitrogen 25 mg/dL (8-26) Creatinine 1.2 mg/dL (0.7-1.3) Estimated GFR (Cockcroft-Gault) 61.1 Glucose Level 107 mg/dL (70-99) Calcium Level 8.7 mg/dL (8.5-10.1) Test 09/07/17 09:30 09/07/17 12:30 09/07/17 18:47 09/07/17 22:05 Prothrombin Time 19.3 SEC (11.7-14.0) Prothromb Time International Ratio 1.7 (0.8-1.1) Glucose (Fingerstick) 118 mg/dL (70-99) 107 mg/dL (70-99) 124 mg/dL (70-99) Test 09/08/17 04:20 09/08/17 12:25 White Blood Count 5.4 x10^3/uL (4.0-11.0) Red Blood Count 4.21 x10^6/uL (4.30-5.70) Hemoglobin 13.0 g/dL (13.0-17.5) Hematocrit 39.1 % (39.0-53.0) Mean Corpuscular Volume 93 fL (79-100) Mean Corpuscular Hemoglobin 31 pg (25-35) Mean Corpuscular Hemoglobin Concent 33 g/dL (31-37) Red Cell Distribution Width 14.8 % (11.5-14.5) Platelet Count 158 x10^3/uL (140-400) Neutrophils (%) (Auto) 68 % (31-73) Lymphocytes (%) (Auto) 21 % (24-48) Monocytes (%) (Auto) 9 % (0-9) Eosinophils (%) (Auto) 2 % (0-3) Basophils (%) (Auto) 0 % (0-3) Neutrophils # (Auto) 3.7 x10^3uL (1.8-7.7) Lymphocytes # (Auto) 1.2 x10^3/uL (1.0-4.8) Monocytes # (Auto) 0.5 x10^3/uL (0.0-1.1) Eosinophils # (Auto) 0.1 x10^3/uL (0.0-0.7) Basophils # (Auto) 0.0 x10^3/uL (0.0-0.2) Prothrombin Time 23.7 SEC (11.7-14.0) Prothromb Time International Ratio 2.3 (0.8-1.1) Sodium Level 143 mmol/L (136-145) Potassium Level 3.7 mmol/L (3.5-5.1) Chloride Level 107 mmol/L (98-107) Carbon Dioxide Level 28 mmol/L (21-32) Anion Gap 8 (6-14) Blood Urea Nitrogen 26 mg/dL (8-26) Creatinine 1.2 mg/dL (0.7-1.3) Estimated GFR (Cockcroft-Gault) 61.1 Glucose Level 122 mg/dL (70-99) Calcium Level 9.0 mg/dL (8.5-10.1) Glucose (Fingerstick) 148 mg/dL (70-99) Laboratory Tests Test 09/07/17 18:47 09/07/17 22:05 09/08/17 04:20 09/08/17 12:25 Glucose (Fingerstick) 107 mg/dL (70-99) 124 mg/dL (70-99) 148 mg/dL (70-99) White Blood Count 5.4 x10^3/uL (4.0-11.0) Red Blood Count 4.21 x10^6/uL (4.30-5.70) Hemoglobin 13.0 g/dL (13.0-17.5) Hematocrit 39.1 % (39.0-53.0) Mean Corpuscular Volume 93 fL (79-100) Mean Corpuscular Hemoglobin 31 pg (25-35) Mean Corpuscular Hemoglobin Concent 33 g/dL (31-37) Red Cell Distribution Width 14.8 % (11.5-14.5) Platelet Count 158 x10^3/uL (140-400) Neutrophils (%) (Auto) 68 % (31-73) Lymphocytes (%) (Auto) 21 % (24-48) Monocytes (%) (Auto) 9 % (0-9) Eosinophils (%) (Auto) 2 % (0-3) Basophils (%) (Auto) 0 % (0-3) Neutrophils # (Auto) 3.7 x10^3uL (1.8-7.7) Lymphocytes # (Auto) 1.2 x10^3/uL (1.0-4.8) Monocytes # (Auto) 0.5 x10^3/uL (0.0-1.1) Eosinophils # (Auto) 0.1 x10^3/uL (0.0-0.7) Basophils # (Auto) 0.0 x10^3/uL (0.0-0.2) Prothrombin Time 23.7 SEC (11.7-14.0) Prothromb Time International Ratio 2.3 (0.8-1.1) Sodium Level 143 mmol/L (136-145) Potassium Level 3.7 mmol/L (3.5-5.1) Chloride Level 107 mmol/L (98-107) Carbon Dioxide Level 28 mmol/L (21-32) Anion Gap 8 (6-14) Blood Urea Nitrogen 26 mg/dL (8-26) Creatinine 1.2 mg/dL (0.7-1.3) Estimated GFR (Cockcroft-Gault) 61.1 Glucose Level 122 mg/dL (70-99) Calcium Level 9.0 mg/dL (8.5-10.1) Medications Current Medications Furosemide (Lasix) 40 mg 1X ONCE IVP Last administered on 09/06/17 08:44; Start 09/06/17 at 08:45; Stop 09/06/17 at 08:46; Status DC Aspirin (Children'S Aspirin) 324 mg 1X ONCE PO Last administered on 09/06/17 09:08; Start 09/06/17 at 08:45; Stop 09/06/17 at 08:46; Status DC Nitroglycerin (Nitrostat) 0.4 mg PRN Q5MIN PRN SL CP RATING > 1/10; Start 09/06 at 08:45; Stop 09/06/17 at 23:02; Status DC Furosemide (Lasix) 40 mg STK-MED ONCE .ROUTE ; Start 09/06/17 at 08:37; Stop at 08:38; Status DC Lorazepam (Ativan) 0.5 mg 1X ONCE IV Last administered on 09/06/17 09:23; Start 09/06/17 at 09:15; Stop 09/06/17 at 09:18; Status DC Albuterol/ Ipratropium (Duoneb) 3 ml 1X ONCE NEB Last administered on 10:44; Start 09/06/17 at 10:45; Stop 09/06/17 at 10:46; Status DC Enoxaparin Sodium (Lovenox Per Pharmacy Treatment Dosing) 1 each PRN DAILY PRN MC SEE COMMENTS; Start 09/06/17 at 10:45; Stop 09/08/17 at 08:23; Status DC Enoxaparin Sodium (Lovenox 100mg Syringe) 100 mg Q12HR SQ Last administered on 09/07/17 21:59; Start 09/06/17 at 11:00; Stop 09/08/17 at 08:22; Status DC Ondansetron HCl (Zofran) 4 mg PRN Q8HRS PRN IV NAUSEA/VOMITING; Start 09/06/17 at 10:45; Stop 09/07/17 at 10:44; Status DC Info (Do NOT chart on this placeholder) 1 each 1X ONCE MC ; Start 09/06/17 at 12:00; Stop 09/06/17 at 12:01; Status UNV Pneumococcal Polyvalent Vaccine (Do NOT chart on this placeholder) 1 each 1X ONCE MC ; Start 09/06/17 at 12:00; Stop 09/06/17 at 12:01; Status UNV Influenza Virus Vaccine Quadrival (Fluarix Quad [id number] Syringe) 0.5 ml ONCE ONCE VAX IM Last administered on 09/06/17 13:28; Start 09/06/17 at 13:00; Stop 09/06/17 at 13:01; Status DC Pneumococcal Polyvalent Vaccine (Pneumovax 23) 0.5 ml ONCE ONCE VAX IM Last administered on 09/06/17 13:29; Start 09/06/17 at 13:00; Stop 09/06/17 at 13:01 ; Status DC Acetaminophen/ Hydrocodone Bitart (Lortab 7.5/325) 1 tab PRN Q6HRS PRN PO PAIN Last administered on 09/07/17 02:12; Start 09/06/17 at 12:45 Acetaminophen/ Hydrocodone Bitart (Lortab 7.5/325) 1 tab PRN Q6HRS PRN PO PAIN ; Start 09/06/17 at 12:45; Stop 09/06/17 at 12:51; Status DC Sacubitril/ Valsartan (Entresto 49 Mg-51 Mg) 1 tab BID PO Last administered on 09/08/17 08:30; Start 09/06/17 at 12:45 Carvedilol (Coreg) 12.5 mg BIDWMEALS PO Last administered on 09/08/17 08:29; Start 09/06/17 at 13:20 Furosemide (Lasix) 20 mg [id number] PO Last administered on 09/08/17 08:28; Start 09/06/17 at 18:30 Warfarin Sodium (Coumadin) 5 mg SuMoWeThFrSa@1600 PO ; Start 09/07/17 at 16:00; Stop 09/07/17 at 16:00; Status DC Warfarin Sodium (Coumadin) 6 mg QTU PO ; Start 09/08/17 at 16:00; Status Cancel Warfarin Sodium (Coumadin) 10 mg 1X ONCE PO Last administered on 09/06/17 18: 43; Start 09/06/17 at 19:00; Stop 09/06/17 at 19:01; Status DC Warfarin Sodium (Coumadin Per Physician) 1 each PRN DAILY PRN MC SEE COMMENTS Last administered on 09/07/17 08:56; Start 09/06/17 at 18:45; Stop 09/07/17 at 13:40; Status DC Multi-Ingredient Mouthwash/Gargle (Gi Cocktail Single Dose) 15 ml 1X ONCE SWSW Last administered on 09/06/17 21:41; Start 09/06/17 at 20:30; Stop 09/06/17 at 20:31; Status DC Fluconazole (Diflucan) 150 mg 1X ONCE PO Last administered on 09/06/17 21:40 ; Start 09/06/17 at 20:30; Stop 09/06/17 at 20:31; Status DC Aspirin (Ecotrin) 81 mg DAILY PO Last administered on 09/08/17 08:29; Start 09/07/17 at 09:00 EZETIMIBE (Zetia) 10 mg DAILY PO Last administered on 09/08/17 08:29; Start 09/07/17 at 09:00 Nitroglycerin (Nitrostat) 0.4 mg PRN Q15MIN PRN SL CHEST PAIN; Start 09/06/17 at 23:00 Pantoprazole Sodium (Protonix) 40 mg DAILYAC PO Last administered on 08:28; Start 09/07/17 at 07:30 Pramipexole Dihydrochloride (miraPEX) 0.25 mg TID PO Last administered on 09/08 08:28; Start 09/07/17 at 09:00 Atorvastatin Calcium (Lipitor) 80 mg HS PO Last administered on 09/07/17 21:58 ; Start 09/07/17 at 21:00 Zolpidem Tartrate (Ambien) 5 mg PRN QHS PRN PO INSOMINIA,MRX1 IF NEEDED; Start 09/06/17 at 23:00 Warfarin Sodium (Coumadin Per Pharmacy) 1 each PRN DAILY PRN MC SEE COMMENTS Last administered on 09/07/17 13:52; Start 09/07/17 at 13:45 Acetaminophen (Tylenol) 650 mg PRN Q6HRS PRN PO FEVER; Start 09/07/17 at 13:45 Ondansetron HCl (Zofran) 4 mg PRN Q6HRS PRN IV NAUSEA/VOMITING; Start 09/07/17 at 13:45 Morphine Sulfate 2 mg PRN Q2HR PRN IV PAIN; Start 09/07/17 at 13:45 Tramadol HCl (Ultram) 50 mg PRN Q6HRS PRN PO PAIN; Start 09/07/17 at 13:45 Hydralazine HCl (Apresoline Inj) 10 mg PRN Q4HRS PRN IVP ELEVATED BP, SEE COMMENTS; Start 09/07/17 at 13:45 Docusate Sodium (Colace) 100 mg PRN DAILY PRN PO CONSTIPATION; Start 09/07/17 at 13:45 Warfarin Sodium (Coumadin) 6 mg 1X WARF ONCE PO Last administered on 15:38; Start 09/07/17 at 16:00; Stop 09/07/17 at 16:01; Status DC Allopurinol (Zyloprim) 300 mg DAILY PO Last administered on 09/08/17 10:17; Start 09/08/17 at 09:30 Triamcinolone Acetonide (Kenalog) 1 ke BID TP ; Start 09/08/17 at 11:00 Ringer's Solution 1,000 ml @ 75 mls/hr [id number] IV Last administered on 13:00; Start 09/08/17 at 13:00 Propofol 20 ml @ As Directed STK-MED ONCE IV ; Start 09/08/17 at 13:02; Stop 09/08/17 at 13:03; Status DC Active Scripts Active Reported Coumadin (Warfarin Sodium) 6 Mg Tablet 1 Tab PO QTU Coumadin (Warfarin Sodium) 5 Mg Tablet 1 Tab PO DAILY Lasix (Furosemide) 20 Mg Tablet 20 Mg PO BID NITROGLYCERIN SubLingual (Nitroglycerin) 0.4 Mg Tab.subl 1 Tab SL UD PRN Metformin Hcl 500 Mg Tablet 500 Mg PO BIDWMEALS Zetia (Ezetimibe) 10 Mg Tablet 1 Tab PO DAILY Pantoprazole Sodium 40 Mg Tablet. 1 Tab PO DAILY Entresto 49 mg-51 mg Tablet (Sacubitril/Valsartan) 1 Each Tablet 1 Each PO BID Zolpidem Tartrate 10 Mg Tablet 1 Tab PO QHS PRN Mirapex (Pramipexole Di-Hcl) 0.25 Mg Tablet 0.25 Mg PO TID Hydrocodone-Apap 7.5-325 (Hydrocodone Bit/Acetaminophen) 1 Each Tablet 1 Tab PO PRN Q6HRS PRN Crestor (Rosuvastatin Calcium) 10 Mg Tablet 40 Mg PO DAILY Aspir-Low (Aspirin) 81 Mg Tablet. 81 Mg PO DAILY One Daily For Men Tablet (Multivits-Minerals/Fa/Lycopene) 1 Each Tablet 1 Each PO DAILY Zyloprim (Allopurinol) 300 Mg Tablet 300 Mg PO DAILY Coreg (Carvedilol) 25 Mg Tablet 12.5 Mg PO BID Vitals/I & O Vital Sign - Last 24 Hours 09/07/17 09/07/17 09/07/17 09/07/17 16:00 18:56 20:00 20:00 Temp 97.9 97.8 97.9 97.8 Pulse 70 69 70 Resp 20 16 B/P (MAP) 114/61 (78) 146/73 146/73 (97) Pulse Ox 96 99 O2 Delivery Room Air Room Air Room Air 09/07/17 09/07/17 09/08/17 09/08/17 21:58 23:45 04:00 08:00 Temp 98.2 98.5 98.0 98.2 98.5 98.0 Pulse 73 64 65 69 Resp 18 20 20 B/P (MAP) 144/64 104/63 (77) 149/78 (101) 141/80 (100) Pulse Ox 98 96 96 O2 Delivery Room Air Room Air Room Air 09/08/17 09/08/17 09/08/17 09/08/17 08:00 08:29 08:30 12:00 Temp 98.4 98.4 Pulse 70 69 73 Resp 20 B/P (MAP) 141/80 140/80 138/78 (98) Pulse Ox 96 O2 Delivery Room Air Room Air 09/08/17 09/08/17 12:51 12:51 Temp 97.6 97.6 Pulse 75 Resp 18 Pulse Ox 97 O2 Delivery Room Air O2 Flow Rate 2.0 Intake and Output 09/08/17 09/08/17 09/09/17 15:00 23:00 07:00 Output Total 1100 ml Balance -1100 ml SERAFIN CARNEY MD Sep 08, 2017 13:29
--- NOTE | 2017-09-08 13:31 | PDOC4 ---
PROCEDURE Procedure EGD/biopsies Indication: Dyspepsia/wt.loss/FH gastric cancer Meds: per anesthesia Findings: E--<grade I esophagitis with "microerosions" at 40cm. G--few antral erosions. Biopsies re: H.pylori as FH gastric cancer. D-Normal to second portion. Geovanna. well. IMP: Reflux esophagitis. Though mild endoscopically, likely cause of issues. Antral erosions; probably from ASA. FH gastric cancer; biopsies for H.pylori. REC: Continue PPI Await path. Thanks. PRATIK CONWAY MD Sep 08, 2017 13:31
[2017-09-08] MEDS: TRIAMCINOLONE ACETONIDE 0.1% TOPICAL CREAM 15GM TUBE. TP SCH ×2 (14:43→20:51)
[2017-09-08] MEDS: HYDROcodone/APAP 7.5/325MG 1 TAB TABLET PO PRN (14:43)
[2017-09-08 16:00] VITALS: BP 115/72
[2017-09-08] MEDS ORDERED: WARFARIN 6 MG TABLET. PO SCH (16:00)
[2017-09-08] MEDS ORDERED: WARFARIN 5 MG TABLET. PO ONE (16:00)
--- NOTE | 2017-09-08 18:49 | PDOC ---
RADHA VELÁZQUEZ OUTPATIENT CODING SPECIALIST 09/08/17 1849: CARDIO Progress Notes Date and Time Date of Service 09/08/2017 Time of Evaluation 1640 Subjective Subjective: No Chest Pain, No shortness of breath, No Palpitations, Other Comments: c/o belching and epigastric pain Vitals Vitals Vital Signs Date Time Temp Pulse Resp B/P (MAP) Pulse Ox O2 Delivery O2 Flow Rate FiO2 09/08/17 16:00 97.6 63 16 115/72 (86) 98 Room Air 97.6 09/08/17 13:32 2 Weight Weight [ ] Input and Output Intake and Output Intake and Output 09/09/17 07:00 Intake Total 850 ml Output Total 1100 ml Balance -250 ml Intake Oral 50 ml IV Total 800 ml Output Urine Total 1100 ml Laboratory Labs Laboratory Tests Test 09/07/17 18:47 09/07/17 22:05 09/08/17 04:20 09/08/17 12:25 Glucose (Fingerstick) 107 mg/dL (70-99) 124 mg/dL (70-99) 148 mg/dL (70-99) White Blood Count 5.4 x10^3/uL (4.0-11.0) Red Blood Count 4.21 x10^6/uL (4.30-5.70) Hemoglobin 13.0 g/dL (13.0-17.5) Hematocrit 39.1 % (39.0-53.0) Mean Corpuscular Volume 93 fL (79-100) Mean Corpuscular Hemoglobin 31 pg (25-35) Mean Corpuscular Hemoglobin Concent 33 g/dL (31-37) Red Cell Distribution Width 14.8 % (11.5-14.5) Platelet Count 158 x10^3/uL (140-400) Neutrophils (%) (Auto) 68 % (31-73) Lymphocytes (%) (Auto) 21 % (24-48) Monocytes (%) (Auto) 9 % (0-9) Eosinophils (%) (Auto) 2 % (0-3) Basophils (%) (Auto) 0 % (0-3) Neutrophils # (Auto) 3.7 x10^3uL (1.8-7.7) Lymphocytes # (Auto) 1.2 x10^3/uL (1.0-4.8) Monocytes # (Auto) 0.5 x10^3/uL (0.0-1.1) Eosinophils # (Auto) 0.1 x10^3/uL (0.0-0.7) Basophils # (Auto) 0.0 x10^3/uL (0.0-0.2) Prothrombin Time 23.7 SEC (11.7-14.0) Prothromb Time International Ratio 2.3 (0.8-1.1) Sodium Level 143 mmol/L (136-145) Potassium Level 3.7 mmol/L (3.5-5.1) Chloride Level 107 mmol/L (98-107) Carbon Dioxide Level 28 mmol/L (21-32) Anion Gap 8 (6-14) Blood Urea Nitrogen 26 mg/dL (8-26) Creatinine 1.2 mg/dL (0.7-1.3) Estimated GFR (Cockcroft-Gault) 61.1 Glucose Level 122 mg/dL (70-99) Calcium Level 9.0 mg/dL (8.5-10.1) Test 09/08/17 17:46 Glucose (Fingerstick) 117 mg/dL (70-99) Physical Exam HEENT: Neck Supple W Full Motion Chest: Symmetric LUNGS: Other Heart: S1S2, RRR, other Abdomen: Soft N/T Extremities: No Edema Neurology: alert, oriented, follow commands Assessment Assessment 1. Acute on chronic systolic/diastolic CHF: compensated. 2. Reflux esophagitis: confirmed with EGD 3. 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 Bin. interrogation revealed normal functioning device with episodes of atrial tach. BiV pacing 4. AVR: chronic coumadin therapy. INR 2.3 5. Hx of CAD: with remote stent placement 6. YAN Recommendations 1. No records, will review if becomes available 2. Continue with current lasix dose and entresto 3. Unclear trigger for CHF but I would suspect undiagnosed ANNEL is a contributor , recommend sleep study as an outpt. 4. Continue with secondary prevention 5. Follow up with cardiology when DC as scheduled. 6. Discussed Na and fluid restriction. Daily wt and home BP mnitoring. SUZY MONTANEZ MD 09/09/17 4437: CARDIO Progress Notes Plan Plan Pt. seen and examined. Agree with above DIRECTOR OF STUDENT FINANCIAL SERVICES note. Late entry for 09/08/2017. Reviewed OSH cardiac cath, no significant coronary disease. Supportive care for dyspnea. RADHA VELÁZQUEZ APRN Sep 08, 2017 18:49 SUZY MONTANEZ MD Sep 09, 2017 18:25
[2017-09-08 19:53] VITALS: BP 121/75
[2017-09-08] MEDS: ATORVASTATIN CALCIUM 40 MG TABLET. PO SCH (20:51)
[2017-09-08 23:59] VITALS: BP 141/82
[2017-09-09] MEDS: IV RINGERS,LACTATED 1000ML 1,000 ML IV SCH (02:20)
[2017-09-09] MEDS: HYDROcodone/APAP 7.5/325MG 1 TAB TABLET PO PRN ×3 (03:04→23:45)
[2017-09-09 04:00] VITALS: BP 119/64
[2017-09-09] MEDS: MORPHINE SULFATE 2 MG/ML DISP.SYRIN. IV PRN ×4 (05:27→16:23)
[2017-09-09 06:05] LABS: INR 2.5 (0.8-1.1); PROTHROMBIN TIME PATIENT 25.4 SEC (11.7-14.0)
[2017-09-09] MEDS: PRAMIPEXOLE 0.25 MG TABLET. PO SCH ×3 (07:17→20:22)
[2017-09-09] MEDS: ALLOPURINOL 300 MG TABLET. PO SCH (07:17)
[2017-09-09] MEDS: PANTOPRAZOLE 40 MG TABLET.DR. PO SCH (07:19)
[2017-09-09] MEDS: FUROSEMIDE 20 MG TABLET PO SCH ×2 (07:19→13:51)
[2017-09-09] MEDS: SACUBITRIL/VALSARTAN 49/51MG TABLET. PO SCH ×2 (07:19→20:22)
[2017-09-09] MEDS: CARVEDILOL 12.5 MG TABLET. PO SCH ×2 (07:19→16:24)
[2017-09-09] MEDS: ASPIRIN ENTERIC COATED 81 MG TABLET.DR. PO SCH (07:19)
[2017-09-09] MEDS: EZETIMIBE 10 MG TABLET. PO SCH (07:19)
[2017-09-09] MEDS: TRIAMCINOLONE ACETONIDE 0.1% TOPICAL CREAM 15GM TUBE. TP SCH ×2 (07:20→20:22)
[2017-09-09 08:00] VITALS: BP 123/71
--- NOTE | 2017-09-09 09:11 | PDOC ---
Subjective: Subjective: A little epigastric pressure. Biggest concern is ankle pain. Objective: Objective: Per RN - pt still concerned w/ epigastric discomfort. Vital Signs: Vital Signs Date Time Temp Pulse Resp B/P (MAP) Pulse Ox O2 Delivery O2 Flow Rate FiO2 09/09/17 07:19 66 123/71 09/09/17 06:00 15 100 Room Air 09/09/17 04:00 97.9 97.9 09/08/17 13:32 2 Labs: Laboratory Tests Test 09/08/17 12:25 09/08/17 17:46 09/09/17 07:22 Glucose (Fingerstick) 148 mg/dL (70-99) 117 mg/dL (70-99) 107 mg/dL (70-99) Imaging: E--<grade I esophagitis with "microerosions" at 40cm. G--few antral erosions. Biopsies re: H.pylori as FH gastric cancer. D-Normal to second portion. IMP: Reflux esophagitis. Though mild endoscopically, likely cause of issues. Antral erosions; probably from ASA. FH gastric cancer; biopsies for H.pylori. US Impression: Hepatomegaly with diffuse hepatic steatosis and an area of focal fatty sparing. No additional abnormality seen. PE: GEN: NAD LUNGS: CTAB HEART: RRR ABD: S/ND/NT EXTREM: left ankle tenderness NEURO/PSYCH: A & O 3 A/P: Upper abd discomfort, early satiety, weight loss -EGD as above, on PPI for reflux Fatty liver Ankle pain -per primary -- Continue PPI. AVA HOWARD Sep 09, 2017 09:11
[2017-09-09] MEDS ORDERED: COLCHICINE 0.6 MG TABLET PO ONE ×2 (09:30→10:30)
--- NOTE | 2017-09-09 13:15 | PDOC ---
PROGRESS NOTES Chief Complaint Chief Complaint dyspnea 2/2 CHF systolic exacerbation likely abd pain, 2/2 mild reflux esophagitis on EGD h/o CAD with PCI ICD PPM avr ON coumadin CHRONIC PAFIb KEVAN on ckd3, vasomotor morbid obeisity, BMI 32 HTN urgency elevated troponin with CHF LIKELY bottom skin rash, eczema likely fatty liver left ankle pain with h/o gout plan: fu with card echo was done with own card 04/2017, need records? cont home meds lasix 20mg bid for now gi consult as pt required, EGD done US abd fatty liver cont warfarin , INR daily ,dc lovenox bid. cont warfarin post EGD weight daily intake and output ADD steroid cream for bottom rash left ankle XR, colchicine x2, dr. Weldon consult dc ivf ok to transfer out of ICU History of Present Illness History of Present Illness ROS: NO fever, chills, sob or chest pain sob much better today, off NC bl leg no edema has epigastric abd pain for a few months, and was in [facility] 2 times for it, on protonix, but never fu GI, requires to see GI here. EGD showed mild reflux esophagitis home lasix 20mg bid bottom skin rash severe left ankle pain with h/o gout Vitals Vitals Vital Signs Date Time Temp Pulse Resp B/P (MAP) Pulse Ox O2 Delivery O2 Flow Rate FiO2 09/09/17 12:42 18 Room Air 09/09/17 09:41 98 09/09/17 08:00 64 123/71 (88) 09/09/17 08:00 2.0 09/09/17 04:00 97.9 97.9 Physical Exam General: Alert, Oriented X3, Cooperative Heart: Regular rate, Normal S1, Normal S2 Lungs: Clear Abdomen: Normal bowel sounds, Soft Extremities: No clubbing, No cyanosis, Other (left ankle mild swelling, no erythmea, severe tenderness) Skin: No rashes Labs LABS Laboratory Tests Test 09/08/17 17:46 09/09/17 05:28 09/09/17 07:22 Glucose (Fingerstick) 117 mg/dL (70-99) 107 mg/dL (70-99) Prothrombin Time 25.4 SEC (11.7-14.0) Prothromb Time International Ratio 2.5 (0.8-1.1) Assessment and Plan Assessmemt and Plan Problems Medical Problems: (1) Acute exacerbation of congestive heart failure Status: Acute Problems: Comment Review of Relevant I have reviewed the following items katrin (where applicable) has been applied. Labs Laboratory Tests Test 09/07/17 18:47 09/07/17 22:05 09/08/17 04:20 09/08/17 12:25 Glucose (Fingerstick) 107 mg/dL (70-99) 124 mg/dL (70-99) 148 mg/dL (70-99) White Blood Count 5.4 x10^3/uL (4.0-11.0) Red Blood Count 4.21 x10^6/uL (4.30-5.70) Hemoglobin 13.0 g/dL (13.0-17.5) Hematocrit 39.1 % (39.0-53.0) Mean Corpuscular Volume 93 fL (79-100) Mean Corpuscular Hemoglobin 31 pg (25-35) Mean Corpuscular Hemoglobin Concent 33 g/dL (31-37) Red Cell Distribution Width 14.8 % (11.5-14.5) Platelet Count 158 x10^3/uL (140-400) Neutrophils (%) (Auto) 68 % (31-73) Lymphocytes (%) (Auto) 21 % (24-48) Monocytes (%) (Auto) 9 % (0-9) Eosinophils (%) (Auto) 2 % (0-3) Basophils (%) (Auto) 0 % (0-3) Neutrophils # (Auto) 3.7 x10^3uL (1.8-7.7) Lymphocytes # (Auto) 1.2 x10^3/uL (1.0-4.8) Monocytes # (Auto) 0.5 x10^3/uL (0.0-1.1) Eosinophils # (Auto) 0.1 x10^3/uL (0.0-0.7) Basophils # (Auto) 0.0 x10^3/uL (0.0-0.2) Prothrombin Time 23.7 SEC (11.7-14.0) Prothromb Time International Ratio 2.3 (0.8-1.1) Sodium Level 143 mmol/L (136-145) Potassium Level 3.7 mmol/L (3.5-5.1) Chloride Level 107 mmol/L (98-107) Carbon Dioxide Level 28 mmol/L (21-32) Anion Gap 8 (6-14) Blood Urea Nitrogen 26 mg/dL (8-26) Creatinine 1.2 mg/dL (0.7-1.3) Estimated GFR (Cockcroft-Gault) 61.1 Glucose Level 122 mg/dL (70-99) Calcium Level 9.0 mg/dL (8.5-10.1) Test 09/08/17 17:46 09/09/17 05:28 09/09/17 07:22 Glucose (Fingerstick) 117 mg/dL (70-99) 107 mg/dL (70-99) Prothrombin Time 25.4 SEC (11.7-14.0) Prothromb Time International Ratio 2.5 (0.8-1.1) Laboratory Tests Test 09/08/17 17:46 09/09/17 05:28 09/09/17 07:22 Glucose (Fingerstick) 117 mg/dL (70-99) 107 mg/dL (70-99) Prothrombin Time 25.4 SEC (11.7-14.0) Prothromb Time International Ratio 2.5 (0.8-1.1) Medications Current Medications Furosemide (Lasix) 40 mg 1X ONCE IVP Last administered on 09/06/17 08:44; Start 09/06/17 at 08:45; Stop 09/06/17 at 08:46; Status DC Aspirin (Children'S Aspirin) 324 mg 1X ONCE PO Last administered on 09/06/17 09:08; Start 09/06/17 at 08:45; Stop 09/06/17 at 08:46; Status DC Nitroglycerin (Nitrostat) 0.4 mg PRN Q5MIN PRN SL CP RATING > 1/10; Start 09/06 at 08:45; Stop 09/06/17 at 23:02; Status DC Furosemide (Lasix) 40 mg STK-MED ONCE .ROUTE ; Start 09/06/17 at 08:37; Stop at 08:38; Status DC Lorazepam (Ativan) 0.5 mg 1X ONCE IV Last administered on 09/06/17 09:23; Start 09/06/17 at 09:15; Stop 09/06/17 at 09:18; Status DC Albuterol/ Ipratropium (Duoneb) 3 ml 1X ONCE NEB Last administered on 10:44; Start 09/06/17 at 10:45; Stop 09/06/17 at 10:46; Status DC Enoxaparin Sodium (Lovenox Per Pharmacy Treatment Dosing) 1 each PRN DAILY PRN MC SEE COMMENTS; Start 09/06/17 at 10:45; Stop 09/08/17 at 08:23; Status DC Enoxaparin Sodium (Lovenox 100mg Syringe) 100 mg Q12HR SQ Last administered on 09/07/17 21:59; Start 09/06/17 at 11:00; Stop 09/08/17 at 08:22; Status DC Ondansetron HCl (Zofran) 4 mg PRN Q8HRS PRN IV NAUSEA/VOMITING; Start 09/06/17 at 10:45; Stop 09/07/17 at 10:44; Status DC Info (Do NOT chart on this placeholder) 1 each 1X ONCE MC ; Start 09/06/17 at 12:00; Stop 09/06/17 at 12:01; Status UNV Pneumococcal Polyvalent Vaccine (Do NOT chart on this placeholder) 1 each 1X ONCE MC ; Start 09/06/17 at 12:00; Stop 09/06/17 at 12:01; Status UNV Influenza Virus Vaccine Quadrival (Fluarix Quad 7090-2522 Syringe) 0.5 ml ONCE ONCE VAX IM Last administered on 09/06/17 13:28; Start 09/06/17 at 13:00; Stop 09/06/17 at 13:01; Status DC Pneumococcal Polyvalent Vaccine (Pneumovax 23) 0.5 ml ONCE ONCE VAX IM Last administered on 09/06/17 13:29; Start 09/06/17 at 13:00; Stop 09/06/17 at 13:01 ; Status DC Acetaminophen/ Hydrocodone Bitart (Lortab 7.5/325) 1 tab PRN Q6HRS PRN PO PAIN Last administered on 09/09/17 03:04; Start 09/06/17 at 12:45 Acetaminophen/ Hydrocodone Bitart (Lortab 7.5/325) 1 tab PRN Q6HRS PRN PO PAIN ; Start 09/06/17 at 12:45; Stop 09/06/17 at 12:51; Status DC Sacubitril/ Valsartan (Entresto 49 Mg-51 Mg) 1 tab BID PO Last administered on 09/09/17 07:19; Start 09/06/17 at 12:45 Carvedilol (Coreg) 12.5 mg BIDWMEALS PO Last administered on 09/09/17 07:19; Start 09/06/17 at 13:20 Furosemide (Lasix) 20 mg [id number] PO Last administered on 09/09/17 07:19; Start 09/06/17 at 18:30 Warfarin Sodium (Coumadin) 5 mg SuMoWeThFrSa@1600 PO ; Start 09/07/17 at 16:00; Stop 09/07/17 at 16:00; Status DC Warfarin Sodium (Coumadin) 6 mg QTU PO ; Start 09/08/17 at 16:00; Status Cancel Warfarin Sodium (Coumadin) 10 mg 1X ONCE PO Last administered on 09/06/17 18: 43; Start 09/06/17 at 19:00; Stop 09/06/17 at 19:01; Status DC Warfarin Sodium (Coumadin Per Physician) 1 each PRN DAILY PRN MC SEE COMMENTS Last administered on 09/07/17 08:56; Start 09/06/17 at 18:45; Stop 09/07/17 at 13:40; Status DC Multi-Ingredient Mouthwash/Gargle (Gi Cocktail Single Dose) 15 ml 1X ONCE SWSW Last administered on 09/06/17 21:41; Start 09/06/17 at 20:30; Stop 09/06/17 at 20:31; Status DC Fluconazole (Diflucan) 150 mg 1X ONCE PO Last administered on 09/06/17 21:40 ; Start 09/06/17 at 20:30; Stop 09/06/17 at 20:31; Status DC Aspirin (Ecotrin) 81 mg DAILY PO Last administered on 09/09/17 07:19; Start 09/07/17 at 09:00 EZETIMIBE (Zetia) 10 mg DAILY PO Last administered on 09/09/17 07:19; Start 09/07/17 at 09:00 Nitroglycerin (Nitrostat) 0.4 mg PRN Q15MIN PRN SL CHEST PAIN; Start 09/06/17 at 23:00 Pantoprazole Sodium (Protonix) 40 mg DAILYAC PO Last administered on 07:19; Start 09/07/17 at 07:30 Pramipexole Dihydrochloride (miraPEX) 0.25 mg TID PO Last administered on 09/09 07:17; Start 09/07/17 at 09:00 Atorvastatin Calcium (Lipitor) 80 mg HS PO Last administered on 09/08/17 20: 51; Start 09/07/17 at 21:00 Zolpidem Tartrate (Ambien) 5 mg PRN QHS PRN PO INSOMINIA,MRX1 IF NEEDED; Start 09/06/17 at 23:00 Warfarin Sodium (Coumadin Per Pharmacy) 1 each PRN DAILY PRN MC SEE COMMENTS Last administered on 09/08/17 14:25; Start 09/07/17 at 13:45 Acetaminophen (Tylenol) 650 mg PRN Q6HRS PRN PO FEVER; Start 09/07/17 at 13:45 Ondansetron HCl (Zofran) 4 mg PRN Q6HRS PRN IV NAUSEA/VOMITING; Start 09/07/17 at 13:45 Morphine Sulfate 2 mg PRN Q2HR PRN IV PAIN Last administered on 09/09/17 12: 42; Start 09/07/17 at 13:45 Tramadol HCl (Ultram) 50 mg PRN Q6HRS PRN PO PAIN; Start 09/07/17 at 13:45 Hydralazine HCl (Apresoline Inj) 10 mg PRN Q4HRS PRN IVP ELEVATED BP, SEE COMMENTS; Start 09/07/17 at 13:45 Docusate Sodium (Colace) 100 mg PRN DAILY PRN PO CONSTIPATION; Start 09/07/17 at 13:45 Warfarin Sodium (Coumadin) 6 mg 1X WARF ONCE PO Last administered on 15:38; Start 09/07/17 at 16:00; Stop 09/07/17 at 16:01; Status DC Allopurinol (Zyloprim) 300 mg DAILY PO Last administered on 09/09/17 07:17; Start 09/08/17 at 09:30 Triamcinolone Acetonide (Kenalog) 1 ke BID TP Last administered on 09/09/17 07:20; Start 09/08/17 at 11:00 Ringer's Solution 1,000 ml @ 75 mls/hr [id number] IV Last administered on 13:00; Start 09/08/17 at 13:00; Stop 09/09/17 at 09:27; Status DC Propofol 20 ml @ As Directed STK-MED ONCE IV ; Start 09/08/17 at 13:02; Stop 09/08/17 at 13:03; Status DC Warfarin Sodium (Coumadin) 5 mg 1X WARF ONCE PO Last administered on 16:40; Start 09/08/17 at 16:00; Stop 09/08/17 at 16:01; Status DC Colchicine (Colcrys) 0.6 mg 1X ONCE PO Last administered on 09/09/17 12:38; Start 09/09/17 at 10:30; Stop 09/09/17 at 10:31; Status DC Colchicine (Colcrys) 1.2 mg 1X ONCE PO Last administered on 09/09/17 11:02; Start 09/09/17 at 09:30; Stop 09/09/17 at 09:31; Status DC Active Scripts Active Reported Coumadin (Warfarin Sodium) 6 Mg Tablet 1 Tab PO QTU Coumadin (Warfarin Sodium) 5 Mg Tablet 1 Tab PO DAILY Lasix (Furosemide) 20 Mg Tablet 20 Mg PO BID NITROGLYCERIN SubLingual (Nitroglycerin) 0.4 Mg Tab.subl 1 Tab SL UD PRN Metformin Hcl 500 Mg Tablet 500 Mg PO BIDWMEALS Zetia (Ezetimibe) 10 Mg Tablet 1 Tab PO DAILY Pantoprazole Sodium 40 Mg Tablet.dr 1 Tab PO DAILY Entresto 49 mg-51 mg Tablet (Sacubitril/Valsartan) 1 Each Tablet 1 Each PO BID Zolpidem Tartrate 10 Mg Tablet 1 Tab PO QHS PRN Mirapex (Pramipexole Di-Hcl) 0.25 Mg Tablet 0.25 Mg PO TID Hydrocodone-Apap 7.5-325 (Hydrocodone Bit/Acetaminophen) 1 Each Tablet 1 Tab PO PRN Q6HRS PRN Crestor (Rosuvastatin Calcium) 10 Mg Tablet 40 Mg PO DAILY Aspir-Low (Aspirin) 81 Mg Tablet.dr 81 Mg PO DAILY One Daily For Men Tablet (Multivits-Minerals/Fa/Lycopene) 1 Each Tablet 1 Each PO DAILY Zyloprim (Allopurinol) 300 Mg Tablet 300 Mg PO DAILY Coreg (Carvedilol) 25 Mg Tablet 12.5 Mg PO BID Vitals/I & O Vital Sign - Last 24 Hours 09/08/17 09/08/17 09/08/17 09/08/17 13:32 13:45 13:58 14:06 Temp 97.0 97.0 Pulse 71 70 72 71 Resp 16 16 16 16 B/P (MAP) 105/60 99/68 110/71 123/85 Pulse Ox 95 95 96 96 O2 Delivery Nasal Cannula Room Air Room Air Room Air O2 Flow Rate 2 09/08/17 09/08/17 09/08/17 09/08/17 14:43 16:00 19:53 20:00 Temp 97.6 97.9 97.6 97.9 Pulse 63 69 Resp 16 16 18 B/P (MAP) 115/72 (86) 121/75 (90) Pulse Ox 98 100 O2 Delivery Room Air Room Air Room Air Room Air 09/08/17 09/08/17 09/08/17 09/09/17 20:51 20:51 23:59 03:04 Temp 98.1 98.1 Pulse 69 68 70 Resp 14 20 B/P (MAP) 132/77 132/77 141/82 (101) Pulse Ox 100 100 O2 Delivery Room Air Room Air 09/09/17 09/09/17 09/09/17 09/09/17 04:00 04:10 05:27 07:19 Temp 97.9 97.9 Pulse 65 66 Resp 16 16 14 B/P (MAP) 119/64 (82) 123/71 Pulse Ox 100 100 100 O2 Delivery Room Air Room Air Room Air 09/09/17 09/09/17 09/09/17 09/09/17 07:19 08:00 08:00 09:11 Pulse 66 64 Resp 16 22 B/P (MAP) 123/71 123/71 (88) Pulse Ox 100 98 O2 Delivery Room Air Room Air Room Air O2 Flow Rate 2.0 09/09/17 09/09/17 09:41 12:42 Resp 22 18 Pulse Ox 98 O2 Delivery Room Air Room Air Intake and Output 09/09/17 09/09/17 09/10/17 15:00 23:00 07:00 Output Total 300 ml Balance -300 ml SERAFIN CARNEY MD Sep 09, 2017 13:15
--- NOTE | 2017-09-09 13:52 | PATHOLOGY ---
PATHOLOGY REPORT * * * * * * * * FINAL DIAGNOSIS: Gastric biopsies, antrum: - Mild superficial chronic gastritis. COMMENT: Sections of the gastric biopsy reveal segments of gastric body mucosa showing congestion and mild superficial chronic inflammation. An immunoperoxidase stain for Helicobacter is obtained. No Helicobacter organisms are identified. There is no evidence of malignancy. (JPM:[id number]; 09/09/2017) Special Stain Performed: Immunoperoxidase stain for Helicobacter (A1) REPORT ELECTRONICALLY SIGNED BY: Brent Sexton M.D. DATE/TIME: 09/09/2017 13:51 * * * * * * * * GROSS PATHOLOGY: Received in formalin labeled "Laurie Hernández, biopsy antrum," are 2 segments of blake soft tissue measuring 1.0 x 0.2 x 0.2 cm in aggregate dimensions and ranging from 0.2 to 0.7 cm in maximum dimension. The specimen is submitted entirely in cassette A1. (TSD; 09/08/2017) INITIAL CPT CODE(S): A; 74744, 09227 Professional services performed [place] [facility] [place] [address] Technical services performed by [facility] at [address] [place] [address]. SPECIMEN(S) RECEIVED: A.Biopsy antrum CLINICAL HISTORY: Abdominal pressure, pain; antral erosions, reflux PATIENT: LAURIE HERNÁNDEZ /AGE: 9 1955 (Age: 62) PATIENT #: [id number] ALT CASE #: SPECIMEN COLLECTION DATE: 09/08/2017 SPECIMEN RECEIVED DATE: 09/08/2017 [facility] - [address] [place] [address] - PHONE: [phone] * * * END OF REPORT * * *
--- NOTE | 2017-09-09 14:32 | RAD ---
Indication pain. No history of injury. AP and lateral views of the left ankle were obtained. No acute finding is seen. Significant degenerative changes are not apparent on plain films. Vascular calcification is noted.
[2017-09-09 15:54] VITALS: BP 109/64
[2017-09-09] MEDS ORDERED: WARFARIN 5 MG TABLET. PO SCH (16:00)
[2017-09-09] MEDS: ATORVASTATIN CALCIUM 40 MG TABLET. PO SCH (20:21)
--- NOTE | 2017-09-09 21:13 | CONS ---
DATE OF CONSULTATION: 09/09/2017 ATTENDING PHYSICIAN: Dr. Bangura. The patient was seen at the request of Dr. Schwarz for evaluation about his left ankle pain. HISTORY OF PRESENT ILLNESS: This is a 62-year-old male with significant cardiac history including mitral valve replacement, coronary artery disease, congestive heart failure status post stent placement as well as permanent pacemaker placement done at about 3 years ago, admitted through the Emergency Room on 09/06/2017 with severe shortness of breath. He had declined BiPAP and EMS actually brought him in actively bagging. The patient apparently had shortness of breath for about 2 days, getting worse without any cough or upper respiratory symptoms or any chest pain. Chest x-ray in the Emergency Room revealed congestive heart failure and mild pulmonary edema. Serum troponin is 0.079 initially. The patient is status post previous myocardial infarction, stent placement about a year ago, mitral valve replacement about 10 years ago, diabetes mellitus, diet controlled. HE IS KNOWN ALLERGIC TO LISINOPRIL. The patient started having left ankle pain and swelling for the last few days, he had history of gouty arthritis in the past, several episodes. The patient admits he had been on allopurinol and also taking colchicine right now for the last 2 days without much help. The patient had x-rays of his left ankle done today, which failed to reveal any acute abnormalities. The patient lives with his family in a [place], [place] home, has five steps to manage and he walks on a regular basis at [facility]. PHYSICAL EXAMINATION: The patient on physical examination today revealed a middle-aged male. He is alert, oriented to time, place, person and circumstance and follows commands appropriately. He moves all 4 extremities voluntarily where he had 4+/5 grade muscle strength and deep tendon reflexes are 1-2+ and symmetrical, and he had equal perception of touch and pinprick sensation bilaterally. He had mild crepitus on range of motion of his knee joints without any obvious knee joint effusion. He had significant pain on range of motion of left ankle. He had tenderness to palpation over left ankle anterolateral aspect, over left lateral malleolus and over tendo-Achilles. Minimal swelling of his left ankle, mostly over lateral aspect. He had equal perception of touch and pinprick sensation bilaterally. He is protecting his left ankle. I have not tested his ambulation skills at present time. ASSESSMENT: A middle-aged male with severe left ankle pain, most probably from sprain with associated tendinitis in a patient with known gouty arthritis, also with degenerative joint disease of both knees without much pain. The patient with recent hospitalization for increased shortness of breath from congestive heart failure with pulmonary edema in a patient with known coronary artery disease with previous myocardial infarction, status post stent placement and also permanent pacemaker automatic implantable cardioverter-defibrillator placement in the past and mitral valve repair done about 10 years ago, diabetes mellitus, diet controlled. RECOMMENDATIONS: To try him with a Cam boot and to get him up as tolerated. Dr. Schwarz, I appreciate asking me to participate in the care of this interesting patient. I will be glad to follow him with you as needed for his rehabilitation. FELI GABRIEL MD DR: JERAMY/fco JOB#: [id number] / [id number]
[2017-09-09 23:00] VITALS: BP 141/52
[2017-09-10 03:00] VITALS: BP 104/32
[2017-09-10 07:00] VITALS: BP 126/74
[2017-09-10] MEDS: FUROSEMIDE 20 MG TABLET PO SCH ×2 (09:17→14:46)
[2017-09-10] MEDS: PRAMIPEXOLE 0.25 MG TABLET. PO SCH ×3 (09:18→20:35)
[2017-09-10] MEDS: ALLOPURINOL 300 MG TABLET. PO SCH (09:18)
[2017-09-10] MEDS: EZETIMIBE 10 MG TABLET. PO SCH (09:18)
[2017-09-10] MEDS: CARVEDILOL 12.5 MG TABLET. PO SCH ×2 (09:18→17:20)
[2017-09-10] MEDS: ASPIRIN ENTERIC COATED 81 MG TABLET.DR. PO SCH (09:19)
[2017-09-10] MEDS: PANTOPRAZOLE 40 MG TABLET.DR. PO SCH (09:19)
[2017-09-10] MEDS: SACUBITRIL/VALSARTAN 49/51MG TABLET. PO SCH ×2 (09:19→20:35)
--- NOTE | 2017-09-10 09:23 | PDOC ---
PROGRESS NOTES Subjective Subjective He admits continued pain in his left foot and ankle,now extending to his left big toe. Objective Objective Vital Signs Date Time Temp Pulse Resp B/P (MAP) Pulse Ox O2 Delivery O2 Flow Rate FiO2 09/10/17 07:00 97.8 69 18 126/74 (91) 95 Room Air 97.8 09/09/17 23:45 2.0 Physical Exam Physical Exam He continues with diffuse edema and tenderness to palpation left foot and anterio lateral aspect of left ankle and tendo achilles.Serum uric acid is 9. Assessment Assessment Problems Medical Problems: (1) Acute exacerbation of congestive heart failure Status: Acute Plan Plan of Care To start him on medrol dose pack and also scheduled colchicine and to get him up with cam walker boot. Comment Review of Relevant I have reviewed the following items katrin (where applicable) has been applied. Labs Laboratory Tests Test 09/08/17 12:25 09/08/17 17:46 09/09/17 05:28 09/09/17 07:22 Glucose (Fingerstick) 148 mg/dL (70-99) 117 mg/dL (70-99) 107 mg/dL (70-99) Prothrombin Time 25.4 SEC (11.7-14.0) Prothromb Time International Ratio 2.5 (0.8-1.1) Test 09/09/17 16:32 09/09/17 18:35 09/09/17 20:52 09/10/17 05:25 Glucose (Fingerstick) 117 mg/dL (70-99) 114 mg/dL (70-99) Erythrocyte Sedimentation Rate 10 (0-15) Uric Acid 9.0 mg/dL (3.5-7.2) Prothrombin Time 29.0 SEC (11.7-14.0) Prothromb Time International Ratio 3.0 (0.8-1.1) Test 09/10/17 08:06 Glucose (Fingerstick) 109 mg/dL (70-99) Laboratory Tests Test 09/09/17 16:32 09/09/17 18:35 09/09/17 20:52 09/10/17 05:25 Glucose (Fingerstick) 117 mg/dL (70-99) 114 mg/dL (70-99) Erythrocyte Sedimentation Rate 10 (0-15) Uric Acid 9.0 mg/dL (3.5-7.2) Prothrombin Time 29.0 SEC (11.7-14.0) Prothromb Time International Ratio 3.0 (0.8-1.1) Test 09/10/17 08:06 Glucose (Fingerstick) 109 mg/dL (70-99) Medications Current Medications Furosemide (Lasix) 40 mg 1X ONCE IVP Last administered on 09/06/17 08:44; Start 09/06/17 at 08:45; Stop 09/06/17 at 08:46; Status DC Aspirin (Children'S Aspirin) 324 mg 1X ONCE PO Last administered on 09/06/17 09:08; Start 09/06/17 at 08:45; Stop 09/06/17 at 08:46; Status DC Nitroglycerin (Nitrostat) 0.4 mg PRN Q5MIN PRN SL CP RATING > 1/10; Start 09/06 at 08:45; Stop 09/06/17 at 23:02; Status DC Furosemide (Lasix) 40 mg STK-MED ONCE .ROUTE ; Start 09/06/17 at 08:37; Stop at 08:38; Status DC Lorazepam (Ativan) 0.5 mg 1X ONCE IV Last administered on 09/06/17 09:23; Start 09/06/17 at 09:15; Stop 09/06/17 at 09:18; Status DC Albuterol/ Ipratropium (Duoneb) 3 ml 1X ONCE NEB Last administered on 10:44; Start 09/06/17 at 10:45; Stop 09/06/17 at 10:46; Status DC Enoxaparin Sodium (Lovenox Per Pharmacy Treatment Dosing) 1 each PRN DAILY PRN MC SEE COMMENTS; Start 09/06/17 at 10:45; Stop 09/08/17 at 08:23; Status DC Enoxaparin Sodium (Lovenox 100mg Syringe) 100 mg Q12HR SQ Last administered on 09/07/17 21:59; Start 09/06/17 at 11:00; Stop 09/08/17 at 08:22; Status DC Ondansetron HCl (Zofran) 4 mg PRN Q8HRS PRN IV NAUSEA/VOMITING; Start 09/06/17 at 10:45; Stop 09/07/17 at 10:44; Status DC Info (Do NOT chart on this placeholder) 1 each 1X ONCE MC ; Start 09/06/17 at 12:00; Stop 09/06/17 at 12:01; Status UNV Pneumococcal Polyvalent Vaccine (Do NOT chart on this placeholder) 1 each 1X ONCE MC ; Start 09/06/17 at 12:00; Stop 09/06/17 at 12:01; Status UNV Influenza Virus Vaccine Quadrival (Fluarix Quad [id number] Syringe) 0.5 ml ONCE ONCE VAX IM Last administered on 09/06/17 13:28; Start 09/06/17 at 13:00; Stop 09/06/17 at 13:01; Status DC Pneumococcal Polyvalent Vaccine (Pneumovax 23) 0.5 ml ONCE ONCE VAX IM Last administered on 09/06/17 13:29; Start 09/06/17 at 13:00; Stop 09/06/17 at 13:01 ; Status DC Acetaminophen/ Hydrocodone Bitart (Lortab 7.5/325) 1 tab PRN Q6HRS PRN PO PAIN Last administered on 09/09/17 23:45; Start 09/06/17 at 12:45 Acetaminophen/ Hydrocodone Bitart (Lortab 7.5/325) 1 tab PRN Q6HRS PRN PO PAIN ; Start 09/06/17 at 12:45; Stop 09/06/17 at 12:51; Status DC Sacubitril/ Valsartan (Entresto 49 Mg-51 Mg) 1 tab BID PO Last administered on 09/09/17 20:22; Start 09/06/17 at 12:45 Carvedilol (Coreg) 12.5 mg BIDWMEALS PO Last administered on 09/09/17 16:24; Start 09/06/17 at 13:20 Furosemide (Lasix) 20 mg [id number] PO Last administered on 09/09/17 13:51; Start 09/06/17 at 18:30 Warfarin Sodium (Coumadin) 5 mg SuMoWeThFrSa@1600 PO ; Start 09/07/17 at 16:00; Stop 09/07/17 at 16:00; Status DC Warfarin Sodium (Coumadin) 6 mg QTU PO ; Start 09/08/17 at 16:00; Status Cancel Warfarin Sodium (Coumadin) 10 mg 1X ONCE PO Last administered on 09/06/17 18: 43; Start 09/06/17 at 19:00; Stop 09/06/17 at 19:01; Status DC Warfarin Sodium (Coumadin Per Physician) 1 each PRN DAILY PRN MC SEE COMMENTS Last administered on 09/07/17 08:56; Start 09/06/17 at 18:45; Stop 09/07/17 at 13:40; Status DC Multi-Ingredient Mouthwash/Gargle (Gi Cocktail Single Dose) 15 ml 1X ONCE SWSW Last administered on 09/06/17 21:41; Start 09/06/17 at 20:30; Stop 09/06/17 at 20:31; Status DC Fluconazole (Diflucan) 150 mg 1X ONCE PO Last administered on 09/06/17 21:40 ; Start 09/06/17 at 20:30; Stop 09/06/17 at 20:31; Status DC Aspirin (Ecotrin) 81 mg DAILY PO Last administered on 09/09/17 07:19; Start 09/07/17 at 09:00 EZETIMIBE (Zetia) 10 mg DAILY PO Last administered on 09/09/17 07:19; Start 09/07/17 at 09:00 Nitroglycerin (Nitrostat) 0.4 mg PRN Q15MIN PRN SL CHEST PAIN; Start 09/06/17 at 23:00 Pantoprazole Sodium (Protonix) 40 mg DAILYAC PO Last administered on 07:19; Start 09/07/17 at 07:30 Pramipexole Dihydrochloride (miraPEX) 0.25 mg TID PO Last administered on 09/09 20:22; Start 09/07/17 at 09:00 Atorvastatin Calcium (Lipitor) 80 mg HS PO Last administered on 09/09/17 20: 21; Start 09/07/17 at 21:00 Zolpidem Tartrate (Ambien) 5 mg PRN QHS PRN PO INSOMINIA,MRX1 IF NEEDED; Start 09/06/17 at 23:00 Warfarin Sodium (Coumadin Per Pharmacy) 1 each PRN DAILY PRN MC SEE COMMENTS Last administered on 09/09/17 13:15; Start 09/07/17 at 13:45 Acetaminophen (Tylenol) 650 mg PRN Q6HRS PRN PO FEVER; Start 09/07/17 at 13:45 Ondansetron HCl (Zofran) 4 mg PRN Q6HRS PRN IV NAUSEA/VOMITING; Start 09/07/17 at 13:45 Morphine Sulfate 2 mg PRN Q2HR PRN IV PAIN Last administered on 09/09/17 16: 23; Start 09/07/17 at 13:45 Tramadol HCl (Ultram) 50 mg PRN Q6HRS PRN PO PAIN; Start 09/07/17 at 13:45 Hydralazine HCl (Apresoline Inj) 10 mg PRN Q4HRS PRN IVP ELEVATED BP, SEE COMMENTS; Start 09/07/17 at 13:45 Docusate Sodium (Colace) 100 mg PRN DAILY PRN PO CONSTIPATION; Start 09/07/17 at 13:45 Warfarin Sodium (Coumadin) 6 mg 1X WARF ONCE PO Last administered on 15:38; Start 09/07/17 at 16:00; Stop 09/07/17 at 16:01; Status DC Allopurinol (Zyloprim) 300 mg DAILY PO Last administered on 09/09/17 07:17; Start 09/08/17 at 09:30 Triamcinolone Acetonide (Kenalog) 1 ke BID TP Last administered on 09/09/17 20:22; Start 09/08/17 at 11:00 Ringer's Solution 1,000 ml @ 75 mls/hr [id number] IV Last administered on 13:00; Start 09/08/17 at 13:00; Stop 09/09/17 at 09:27; Status DC Propofol 20 ml @ As Directed STK-MED ONCE IV ; Start 09/08/17 at 13:02; Stop 09/08/17 at 13:03; Status DC Warfarin Sodium (Coumadin) 5 mg 1X WARF ONCE PO Last administered on 16:40; Start 09/08/17 at 16:00; Stop 09/08/17 at 16:01; Status DC Colchicine (Colcrys) 0.6 mg 1X ONCE PO Last administered on 09/09/17 12:38; Start 09/09/17 at 10:30; Stop 09/09/17 at 10:31; Status DC Colchicine (Colcrys) 1.2 mg 1X ONCE PO Last administered on 09/09/17 11:02; Start 09/09/17 at 09:30; Stop 09/09/17 at 09:31; Status DC Warfarin Sodium (Coumadin) 5 mg DAILY16 PO Last administered on 09/09/17 16: 17; Start 09/09/17 at 16:00 Active Scripts Active Reported Coumadin (Warfarin Sodium) 6 Mg Tablet 1 Tab PO QTU Coumadin (Warfarin Sodium) 5 Mg Tablet 1 Tab PO DAILY Lasix (Furosemide) 20 Mg Tablet 20 Mg PO BID NITROGLYCERIN SubLingual (Nitroglycerin) 0.4 Mg Tab.subl 1 Tab SL UD PRN Metformin Hcl 500 Mg Tablet 500 Mg PO BIDWMEALS Zetia (Ezetimibe) 10 Mg Tablet 1 Tab PO DAILY Pantoprazole Sodium 40 Mg Tablet.dr 1 Tab PO DAILY Entresto 49 mg-51 mg Tablet (Sacubitril/Valsartan) 1 Each Tablet 1 Each PO BID Zolpidem Tartrate 10 Mg Tablet 1 Tab PO QHS PRN Mirapex (Pramipexole Di-Hcl) 0.25 Mg Tablet 0.25 Mg PO TID Hydrocodone-Apap 7.5-325 (Hydrocodone Bit/Acetaminophen) 1 Each Tablet 1 Tab PO PRN Q6HRS PRN Crestor (Rosuvastatin Calcium) 10 Mg Tablet 40 Mg PO DAILY Aspir-Low (Aspirin) 81 Mg Tablet.dr 81 Mg PO DAILY One Daily For Men Tablet (Multivits-Minerals/Fa/Lycopene) 1 Each Tablet 1 Each PO DAILY Zyloprim (Allopurinol) 300 Mg Tablet 300 Mg PO DAILY Coreg (Carvedilol) 25 Mg Tablet 12.5 Mg PO BID Vitals/I & O Vital Sign - Last 24 Hours 09/09/17 09/09/17 09/09/17 09/09/17 09:41 12:42 13:51 14:50 Resp 18 16 Pulse Ox 98 98 O2 Delivery Room Air Room Air Room Air O2 Flow Rate 2.0 09/09/17 09/09/17 09/09/17 09/09/17 15:54 16:23 16:24 16:53 Temp 98.6 98.6 Pulse 69 69 Resp 18 18 18 B/P (MAP) 109/64 (79) 109/64 Pulse Ox 96 O2 Delivery Room Air Room Air Room Air 09/09/17 09/09/17 09/09/17 09/09/17 20:00 20:22 23:00 23:45 Temp 97.7 97.7 Pulse 64 64 Resp 18 B/P (MAP) 123/67 141/52 (81) Pulse Ox 98 98 O2 Delivery Room Air Room Air Room Air O2 Flow Rate 2.0 09/10/17 09/10/17 03:00 07:00 Temp 98.3 97.8 98.3 97.8 Pulse 65 69 Resp 17 18 B/P (MAP) 104/32 (56) 126/74 (91) Pulse Ox 95 95 O2 Delivery Room Air Room Air FELI GABRIEL MD Sep 10, 2017 09:23
--- NOTE | 2017-09-10 10:24 | PDOC ---
Subjective: Subjective: Still bothered w/ ankle pain. Ate better this morning. Chest pressure - mild. Objective: Vital Signs: Vital Signs Date Time Temp Pulse Resp B/P (MAP) Pulse Ox O2 Delivery O2 Flow Rate FiO2 09/10/17 09:19 69 126/74 09/10/17 09:18 20 93 Room Air 09/10/17 07:00 97.8 97.8 09/09/17 23:45 2.0 Labs: Laboratory Tests Test 09/09/17 16:32 09/09/17 18:35 09/09/17 20:52 09/10/17 05:25 Glucose (Fingerstick) 117 mg/dL 114 mg/dL Erythrocyte Sedimentation Rate 10 Uric Acid 9.0 mg/dL Prothrombin Time 29.0 SEC Prothromb Time International Ratio 3.0 Test 09/10/17 08:06 Glucose (Fingerstick) 109 mg/dL PE: GEN: NAD LUNGS: CTAB HEART: RRR ABD: S/ND/NT NEURO/PSYCH: A & O 3 A/P: Upper abd discomfort and early satiety (improved) -s/p EGD, on PPI Fatty liver Ankle pain, gout -- Continue PPI. AVA HOWARD Sep 10, 2017 10:24
[2017-09-10 11:00] VITALS: BP 109/61
[2017-09-10] MEDS: COLCHICINE 0.6 MG TABLET PO SCH (11:46)
[2017-09-10] MEDS: methylPREDNISolone 4 MG TABLET. PO SCH ×4 (11:46→20:35)
--- NOTE | 2017-09-10 13:38 | PDOC ---
PROGRESS NOTES Chief Complaint Chief Complaint Acute hypoxic respir failure ASSESSMENT AND PLAN: 1. CHF exacerbation: systolic; now compensated. back on home lasix dose 2. HTN urgency: controlled 3. Troponin leak: 2/2 above. 4. CAD: no acute issues. cont 2ary prevention meds 5. AVR: mechanical valve; on coumadin 6. Afib: rate controlled; ICD PPM 7. GERD: s/p EGD 1010 with mild reflux esophagitis. cont PPI 8. 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 Gout: acute flare (?) L ankle and big toe; appreciate Dr Weldon's input. add steroids, Colcrys and ice. chronically on allopurinol 10. DM2: currently well controlled. may worsen a bit with start of oral steroids 11. obesity, BMI 32 12. YAN: fatty liver on US 13. Bottom skin rash: eczema likely. cont topical steroids 14. Dispo: OT/PT eval. ?SNF History of Present Illness History of Present Illness feels ok respiratory-campuzano, but pain in foot very bothersome. pain regimen effective, though Vitals Vitals Vital Signs Date Time Temp Pulse Resp B/P (MAP) Pulse Ox O2 Delivery O2 Flow Rate FiO2 09/10/17 11:00 97.8 58 18 109/61 (77) 95 Room Air 97.8 09/10/17 08:00 2.0 Physical Exam General: Alert, Oriented X3, Cooperative, No acute distress Heart: Regular rate, Other (bigeminy; metallic click) Lungs: Clear Abdomen: Normal bowel sounds, Soft Extremities: No edema, Other (left ankle mild swelling, no erythmea, severe tenderness) Skin: No rashes Labs LABS Laboratory Tests Test 09/09/17 16:32 09/09/17 18:35 09/09/17 20:52 09/10/17 05:25 Glucose (Fingerstick) 117 mg/dL (70-99) 114 mg/dL (70-99) Erythrocyte Sedimentation Rate 10 (0-15) Uric Acid 9.0 mg/dL (3.5-7.2) Prothrombin Time 29.0 SEC (11.7-14.0) Prothromb Time International Ratio 3.0 (0.8-1.1) Test 09/10/17 08:06 Glucose (Fingerstick) 109 mg/dL (70-99) CIARA THORPE MD Sep 10, 2017 13:38
[2017-09-10 14:39] VITALS: BP 115/65
[2017-09-10] MEDS: TRIAMCINOLONE ACETONIDE 0.1% TOPICAL CREAM 15GM TUBE. TP SCH ×2 (14:46→22:04)
[2017-09-10] MEDS ORDERED: WARFARIN 2 MG TABLET. PO ONE (16:00)
[2017-09-10 19:00] VITALS: BP 130/62
[2017-09-10] MEDS: ATORVASTATIN CALCIUM 40 MG TABLET. PO SCH (20:35)
[2017-09-10 23:00] VITALS: BP 118/60
[2017-09-11 03:00] VITALS: BP 109/58
[2017-09-11 05:45] LABS: BASO % 0 % (0-3); EOS % 0 % (0-3); HEMATOCRIT 39.2 % (39.0-53.0); HEMOGLOBIN 13.1 g/dL (13.0-17.5); LYMPH # 0.4 x10^3/uL (1.0-4.8); LYMPH % 7 % (24-48); MEAN CORPUSCULAR HEMOGLOBIN 31 pg (25-35); MEAN CORPUSCULAR HGB CONC 34 g/dL (31-37); MEAN CORPUSCULAR VOLUME 92 fL (79-100); MONO % 3 % (0-9); NEUT % 89 % (31-73); PLATELET COUNT 149 x10^3/uL (140-400); RED BLOOD COUNT 4.25 x10^6/uL (4.30-5.70); RED CELL DISTRIBUTION WIDTH 14.2 % (11.5-14.5); WHITE BLOOD COUNT 5.5 x10^3/uL (4.0-11.0)
[2017-09-11 06:13] LABS: INR 3.1 (0.8-1.1); PROTHROMBIN TIME PATIENT 29.7 SEC (11.7-14.0)
[2017-09-11 06:18] LABS: ALBUMIN 3.3 g/dL (3.4-5.0); ALBUMIN/GLOBULIN RATIO 0.9 (1.0-1.7); CALCIUM 8.9 mg/dL (8.5-10.1); CREATININE 1.5 mg/dL (0.7-1.3); GFR 47.3; POTASSIUM 4.2 mmol/L (3.5-5.1); TOTAL BILIRUBIN 0.4 mg/dL (0.2-1.0); TOTAL PROTEIN 6.9 g/dL (6.4-8.2)
[2017-09-11 07:00] VITALS: BP 125/66
[2017-09-11] MEDS ORDERED: methylPREDNISolone 4 MG TABLET. PO SCH ×2 (08:30→21:00)
[2017-09-11] MEDS: COLCHICINE 0.6 MG TABLET PO SCH (08:40)
[2017-09-11] MEDS: CARVEDILOL 12.5 MG TABLET. PO SCH (08:41)
[2017-09-11] MEDS: FUROSEMIDE 20 MG TABLET PO SCH (08:41)
[2017-09-11] MEDS: SACUBITRIL/VALSARTAN 49/51MG TABLET. PO SCH (08:41)
[2017-09-11] MEDS: ALLOPURINOL 300 MG TABLET. PO SCH (08:42)
[2017-09-11] MEDS: PANTOPRAZOLE 40 MG TABLET.DR. PO SCH (08:42)
[2017-09-11] MEDS: PRAMIPEXOLE 0.25 MG TABLET. PO SCH (08:42)
[2017-09-11] MEDS: EZETIMIBE 10 MG TABLET. PO SCH (08:42)
[2017-09-11] MEDS: ASPIRIN ENTERIC COATED 81 MG TABLET.DR. PO SCH (08:42)
[2017-09-11] MEDS: TRIAMCINOLONE ACETONIDE 0.1% TOPICAL CREAM 15GM TUBE. TP SCH (08:43)
[2017-09-11 08:53] LABS: % EOS 1 % (0-5); PLT ESTIMATE ADEQUATE (ADEQUATE)
--- NOTE | 2017-09-11 09:22 | PDOC ---
PROGRESS NOTES Subjective Subjective He feels better with her left foot. Objective Objective Vital Signs Date Time Temp Pulse Resp B/P (MAP) Pulse Ox O2 Delivery O2 Flow Rate FiO2 09/11/17 08:41 53 109/58 09/11/17 07:00 97.7 20 94 Room Air 97.7 09/10/17 08:00 2.0 Physical Exam Physical Exam He is alert and comfortable and getting up walk cam walker. Assessment Assessment Problems Medical Problems: (1) Acute exacerbation of congestive heart failure Status: Acute Plan Plan of Halfway with out patient follow up if medically ready later on today or tomorrow. Comment Review of Relevant I have reviewed the following items katrin (where applicable) has been applied. Labs Laboratory Tests Test 09/09/17 16:32 09/09/17 18:35 09/09/17 20:52 09/10/17 05:25 Glucose (Fingerstick) 117 mg/dL (70-99) 114 mg/dL (70-99) Erythrocyte Sedimentation Rate 10 (0-15) Uric Acid 9.0 mg/dL (3.5-7.2) Prothrombin Time 29.0 SEC (11.7-14.0) Prothromb Time International Ratio 3.0 (0.8-1.1) Test 09/10/17 08:06 09/10/17 10:51 09/10/17 16:22 09/10/17 20:53 Glucose (Fingerstick) 109 mg/dL (70-99) 108 mg/dL (70-99) 193 mg/dL (70-99) 200 mg/dL (70-99) Test 09/11/17 04:36 09/11/17 07:35 White Blood Count 5.5 x10^3/uL (4.0-11.0) Red Blood Count 4.25 x10^6/uL (4.30-5.70) Hemoglobin 13.1 g/dL (13.0-17.5) Hematocrit 39.2 % (39.0-53.0) Mean Corpuscular Volume 92 fL (79-100) Mean Corpuscular Hemoglobin 31 pg (25-35) Mean Corpuscular Hemoglobin Concent 34 g/dL (31-37) Red Cell Distribution Width 14.2 % (11.5-14.5) Platelet Count 149 x10^3/uL (140-400) Neutrophils (%) (Auto) 89 % (31-73) Lymphocytes (%) (Auto) 7 % (24-48) Monocytes (%) (Auto) 3 % (0-9) Eosinophils (%) (Auto) 0 % (0-3) Basophils (%) (Auto) 0 % (0-3) Neutrophils # (Auto) 4.9 x10^3uL (1.8-7.7) Lymphocytes # (Auto) 0.4 x10^3/uL (1.0-4.8) Monocytes # (Auto) 0.2 x10^3/uL (0.0-1.1) Eosinophils # (Auto) 0.0 x10^3/uL (0.0-0.7) Basophils # (Auto) 0.0 x10^3/uL (0.0-0.2) Segmented Neutrophils % 82 % (35-66) Band Neutrophils % 5 % (0-9) Lymphocytes % 9 % (24-48) Monocytes % 3 % (0-10) Eosinophils % 1 % (0-5) Platelet Estimate Adequate (ADEQUATE) Prothrombin Time 29.7 SEC (11.7-14.0) Prothromb Time International Ratio 3.1 (0.8-1.1) Sodium Level 139 mmol/L (136-145) Potassium Level 4.2 mmol/L (3.5-5.1) Chloride Level 103 mmol/L (98-107) Carbon Dioxide Level 27 mmol/L (21-32) Anion Gap 9 (6-14) Blood Urea Nitrogen 39 mg/dL (8-26) Creatinine 1.5 mg/dL (0.7-1.3) Estimated GFR (Cockcroft-Gault) 47.3 BUN/Creatinine Ratio 26 (6-20) Glucose Level 163 mg/dL (70-99) Calcium Level 8.9 mg/dL (8.5-10.1) Total Bilirubin 0.4 mg/dL (0.2-1.0) Aspartate Amino Transf (AST/SGOT) 81 U/L (15-37) Alanine Aminotransferase (ALT/SGPT) 75 U/L (16-63) Alkaline Phosphatase 62 U/L (46-116) Total Protein 6.9 g/dL (6.4-8.2) Albumin 3.3 g/dL (3.4-5.0) Albumin/Globulin Ratio 0.9 (1.0-1.7) Glucose (Fingerstick) 161 mg/dL (70-99) Laboratory Tests Test 09/10/17 10:51 09/10/17 16:22 09/10/17 20:53 09/11/17 04:36 Glucose (Fingerstick) 108 mg/dL (70-99) 193 mg/dL (70-99) 200 mg/dL (70-99) White Blood Count 5.5 x10^3/uL (4.0-11.0) Red Blood Count 4.25 x10^6/uL (4.30-5.70) Hemoglobin 13.1 g/dL (13.0-17.5) Hematocrit 39.2 % (39.0-53.0) Mean Corpuscular Volume 92 fL (79-100) Mean Corpuscular Hemoglobin 31 pg (25-35) Mean Corpuscular Hemoglobin Concent 34 g/dL (31-37) Red Cell Distribution Width 14.2 % (11.5-14.5) Platelet Count 149 x10^3/uL (140-400) Neutrophils (%) (Auto) 89 % (31-73) Lymphocytes (%) (Auto) 7 % (24-48) Monocytes (%) (Auto) 3 % (0-9) Eosinophils (%) (Auto) 0 % (0-3) Basophils (%) (Auto) 0 % (0-3) Neutrophils # (Auto) 4.9 x10^3uL (1.8-7.7) Lymphocytes # (Auto) 0.4 x10^3/uL (1.0-4.8) Monocytes # (Auto) 0.2 x10^3/uL (0.0-1.1) Eosinophils # (Auto) 0.0 x10^3/uL (0.0-0.7) Basophils # (Auto) 0.0 x10^3/uL (0.0-0.2) Segmented Neutrophils % 82 % (35-66) Band Neutrophils % 5 % (0-9) Lymphocytes % 9 % (24-48) Monocytes % 3 % (0-10) Eosinophils % 1 % (0-5) Platelet Estimate Adequate (ADEQUATE) Prothrombin Time 29.7 SEC (11.7-14.0) Prothromb Time International Ratio 3.1 (0.8-1.1) Sodium Level 139 mmol/L (136-145) Potassium Level 4.2 mmol/L (3.5-5.1) Chloride Level 103 mmol/L (98-107) Carbon Dioxide Level 27 mmol/L (21-32) Anion Gap 9 (6-14) Blood Urea Nitrogen 39 mg/dL (8-26) Creatinine 1.5 mg/dL (0.7-1.3) Estimated GFR (Cockcroft-Gault) 47.3 BUN/Creatinine Ratio 26 (6-20) Glucose Level 163 mg/dL (70-99) Calcium Level 8.9 mg/dL (8.5-10.1) Total Bilirubin 0.4 mg/dL (0.2-1.0) Aspartate Amino Transf (AST/SGOT) 81 U/L (15-37) Alanine Aminotransferase (ALT/SGPT) 75 U/L (16-63) Alkaline Phosphatase 62 U/L (46-116) Total Protein 6.9 g/dL (6.4-8.2) Albumin 3.3 g/dL (3.4-5.0) Albumin/Globulin Ratio 0.9 (1.0-1.7) Test 09/11/17 07:35 Glucose (Fingerstick) 161 mg/dL (70-99) Medications Current Medications Furosemide (Lasix) 40 mg 1X ONCE IVP Last administered on 09/06/17 08:44; Start 09/06/17 at 08:45; Stop 09/06/17 at 08:46; Status DC Aspirin (Children'S Aspirin) 324 mg 1X ONCE PO Last administered on 09/06/17 09:08; Start 09/06/17 at 08:45; Stop 09/06/17 at 08:46; Status DC Nitroglycerin (Nitrostat) 0.4 mg PRN Q5MIN PRN SL CP RATING > 1/10; Start 09/06 at 08:45; Stop 09/06/17 at 23:02; Status DC Furosemide (Lasix) 40 mg STK-MED ONCE .ROUTE ; Start 09/06/17 at 08:37; Stop at 08:38; Status DC Lorazepam (Ativan) 0.5 mg 1X ONCE IV Last administered on 09/06/17 09:23; Start 09/06/17 at 09:15; Stop 09/06/17 at 09:18; Status DC Albuterol/ Ipratropium (Duoneb) 3 ml 1X ONCE NEB Last administered on 10:44; Start 09/06/17 at 10:45; Stop 09/06/17 at 10:46; Status DC Enoxaparin Sodium (Lovenox Per Pharmacy Treatment Dosing) 1 each PRN DAILY PRN MC SEE COMMENTS; Start 09/06/17 at 10:45; Stop 09/08/17 at 08:23; Status DC Enoxaparin Sodium (Lovenox 100mg Syringe) 100 mg Q12HR SQ Last administered on 09/07/17 21:59; Start 09/06/17 at 11:00; Stop 09/08/17 at 08:22; Status DC Ondansetron HCl (Zofran) 4 mg PRN Q8HRS PRN IV NAUSEA/VOMITING; Start 09/06/17 at 10:45; Stop 09/07/17 at 10:44; Status DC Info (Do NOT chart on this placeholder) 1 each 1X ONCE MC ; Start 09/06/17 at 12:00; Stop 09/06/17 at 12:01; Status UNV Pneumococcal Polyvalent Vaccine (Do NOT chart on this placeholder) 1 each 1X ONCE MC ; Start 09/06/17 at 12:00; Stop 09/06/17 at 12:01; Status UNV Influenza Virus Vaccine Quadrival (Fluarix Quad [id number] Syringe) 0.5 ml ONCE ONCE VAX IM Last administered on 09/06/17 13:28; Start 09/06/17 at 13:00; Stop 09/06/17 at 13:01; Status DC Pneumococcal Polyvalent Vaccine (Pneumovax 23) 0.5 ml ONCE ONCE VAX IM Last administered on 09/06/17 13:29; Start 09/06/17 at 13:00; Stop 09/06/17 at 13:01 ; Status DC Acetaminophen/ Hydrocodone Bitart (Lortab 7.5/325) 1 tab PRN Q6HRS PRN PO PAIN Last administered on 09/09/17 23:45; Start 09/06/17 at 12:45 Acetaminophen/ Hydrocodone Bitart (Lortab 7.5/325) 1 tab PRN Q6HRS PRN PO PAIN ; Start 09/06/17 at 12:45; Stop 09/06/17 at 12:51; Status DC Sacubitril/ Valsartan (Entresto 49 Mg-51 Mg) 1 tab BID PO Last administered on 09/11/17 08:41; Start 09/06/17 at 12:45 Carvedilol (Coreg) 12.5 mg BIDWMEALS PO Last administered on 09/11/17 08:41; Start 09/06/17 at 13:20 Furosemide (Lasix) 20 mg BID92 PO Last administered on 09/11/17 08:41; Start 09/06/17 at 18:30 Warfarin Sodium (Coumadin) 5 mg SuMoWeThFrSa@1600 PO ; Start 09/07/17 at 16:00; Stop 09/07/17 at 16:00; Status DC Warfarin Sodium (Coumadin) 6 mg QTU PO ; Start 09/08/17 at 16:00; Status Cancel Warfarin Sodium (Coumadin) 10 mg 1X ONCE PO Last administered on 09/06/17 18: 43; Start 09/06/17 at 19:00; Stop 09/06/17 at 19:01; Status DC Warfarin Sodium (Coumadin Per Physician) 1 each PRN DAILY PRN MC SEE COMMENTS Last administered on 09/07/17 08:56; Start 09/06/17 at 18:45; Stop 09/07/17 at 13:40; Status DC Multi-Ingredient Mouthwash/Gargle (Gi Cocktail Single Dose) 15 ml 1X ONCE SWSW Last administered on 09/06/17 21:41; Start 09/06/17 at 20:30; Stop 09/06/17 at 20:31; Status DC Fluconazole (Diflucan) 150 mg 1X ONCE PO Last administered on 09/06/17 21:40 ; Start 09/06/17 at 20:30; Stop 09/06/17 at 20:31; Status DC Aspirin (Ecotrin) 81 mg DAILY PO Last administered on 09/11/17 08:42; Start 09/07/17 at 09:00 EZETIMIBE (Zetia) 10 mg DAILY PO Last administered on 09/11/17 08:42; Start 09/07/17 at 09:00 Nitroglycerin (Nitrostat) 0.4 mg PRN Q15MIN PRN SL CHEST PAIN; Start 09/06/17 at 23:00 Pantoprazole Sodium (Protonix) 40 mg DAILYAC PO Last administered on 08:42; Start 09/07/17 at 07:30 Pramipexole Dihydrochloride (miraPEX) 0.25 mg TID PO Last administered on 09/11 08:42; Start 09/07/17 at 09:00 Atorvastatin Calcium (Lipitor) 80 mg HS PO Last administered on 09/10/17 20: 35; Start 09/07/17 at 21:00 Zolpidem Tartrate (Ambien) 5 mg PRN QHS PRN PO INSOMINIA,MRX1 IF NEEDED; Start 09/06/17 at 23:00 Warfarin Sodium (Coumadin Per Pharmacy) 1 each PRN DAILY PRN MC SEE COMMENTS Last administered on 09/10/17 15:30; Start 09/07/17 at 13:45 Acetaminophen (Tylenol) 650 mg PRN Q6HRS PRN PO FEVER; Start 09/07/17 at 13:45 Ondansetron HCl (Zofran) 4 mg PRN Q6HRS PRN IV NAUSEA/VOMITING; Start 09/07/17 at 13:45 Morphine Sulfate 2 mg PRN Q2HR PRN IV PAIN Last administered on 09/09/17 16: 23; Start 09/07/17 at 13:45; Stop 09/10/17 at 13:37; Status DC Tramadol HCl (Ultram) 50 mg PRN Q6HRS PRN PO PAIN Last administered on 09:18; Start 09/07/17 at 13:45 Hydralazine HCl (Apresoline Inj) 10 mg PRN Q4HRS PRN IVP ELEVATED BP, SEE COMMENTS; Start 09/07/17 at 13:45 Docusate Sodium (Colace) 100 mg PRN DAILY PRN PO CONSTIPATION; Start 09/07/17 at 13:45 Warfarin Sodium (Coumadin) 6 mg 1X WARF ONCE PO Last administered on 15:38; Start 09/07/17 at 16:00; Stop 09/07/17 at 16:01; Status DC Allopurinol (Zyloprim) 300 mg DAILY PO Last administered on 09/11/17 08:42; Start 09/08/17 at 09:30 Triamcinolone Acetonide (Kenalog) 1 ke BID TP Last administered on 09/11/17 08:43; Start 09/08/17 at 11:00 Ringer's Solution 1,000 ml @ 75 mls/hr [id number] IV Last administered on 13:00; Start 09/08/17 at 13:00; Stop 09/09/17 at 09:27; Status DC Propofol 20 ml @ As Directed STK-MED ONCE IV ; Start 09/08/17 at 13:02; Stop 09/08/17 at 13:03; Status DC Warfarin Sodium (Coumadin) 5 mg 1X WARF ONCE PO Last administered on 16:40; Start 09/08/17 at 16:00; Stop 09/08/17 at 16:01; Status DC Colchicine (Colcrys) 0.6 mg 1X ONCE PO Last administered on 09/09/17 12:38; Start 09/09/17 at 10:30; Stop 09/09/17 at 10:31; Status DC Colchicine (Colcrys) 1.2 mg 1X ONCE PO Last administered on 09/09/17 11:02; Start 09/09/17 at 09:30; Stop 09/09/17 at 09:31; Status DC Warfarin Sodium (Coumadin) 5 mg DAILY16 PO Last administered on 09/09/17 16: 17; Start 09/09/17 at 16:00; Stop 09/10/17 at 15:27; Status DC Methylprednisolone (Medrol) 8 mg BID PO Last administered on 09/10/17 20:35; Start 09/10/17 at 10:00; Stop 09/10/17 at 21:01; Status DC Methylprednisolone (Medrol) 4 mg BIDPCLD PO Last administered on 09/10/17 17: 19; Start 09/10/17 at 12:30; Stop 09/10/17 at 17:31; Status DC Methylprednisolone (Medrol) 4 mg TIDPC PO Last administered on 09/11/17 08:40 ; Start 09/11/17 at 08:30; Stop 09/11/17 at 17:31 Methylprednisolone (Medrol) 8 mg QHS PO ; Start 09/11/17 at 21:00; Stop at 21:01 Methylprednisolone (Medrol) 4 mg QIDAFTMEAL PO ; Start 09/12/17 at 09:00; Stop 09/12/17 at 21:01 Methylprednisolone (Medrol) 4 mg TID PO ; Start 09/13/17 at 09:00; Stop at 21:01 Methylprednisolone (Medrol) 4 mg BID PO ; Start 09/14/17 at 09:00; Stop at 21:01 Methylprednisolone (Medrol) 4 mg DAILY PO ; Start 09/15/17 at 09:00; Stop at 09:01 Colchicine (Colcrys) 0.6 mg DAILY PO Last administered on 09/11/17t 08:40; Start 09/10/17 at 10:00 Warfarin Sodium (Coumadin) 2 mg 1X WARF ONCE PO Last administered on 17:19; Start 09/10/17 at 16:00; Stop 09/10/17 at 16:01; Status DC Active Scripts Active Reported Coumadin (Warfarin Sodium) 6 Mg Tablet 1 Tab PO QTU Coumadin (Warfarin Sodium) 5 Mg Tablet 1 Tab PO DAILY Lasix (Furosemide) 20 Mg Tablet 20 Mg PO BID NITROGLYCERIN SubLingual (Nitroglycerin) 0.4 Mg Tab.subl 1 Tab SL UD PRN Metformin Hcl 500 Mg Tablet 500 Mg PO BIDWMEALS Zetia (Ezetimibe) 10 Mg Tablet 1 Tab PO DAILY Pantoprazole Sodium 40 Mg Tablet. 1 Tab PO DAILY Entresto 49 mg-51 mg Tablet (Sacubitril/Valsartan) 1 Each Tablet 1 Each PO BID Zolpidem Tartrate 10 Mg Tablet 1 Tab PO QHS PRN Mirapex (Pramipexole Di-Hcl) 0.25 Mg Tablet 0.25 Mg PO TID Hydrocodone-Apap 7.5-325 (Hydrocodone Bit/Acetaminophen) 1 Each Tablet 1 Tab PO PRN Q6HRS PRN Crestor (Rosuvastatin Calcium) 10 Mg Tablet 40 Mg PO DAILY Aspir-Low (Aspirin) 81 Mg Tablet.dr 81 Mg PO DAILY One Daily For Men Tablet (Multivits-Minerals/Fa/Lycopene) 1 Each Tablet 1 Each PO DAILY Zyloprim (Allopurinol) 300 Mg Tablet 300 Mg PO DAILY Coreg (Carvedilol) 25 Mg Tablet 12.5 Mg PO BID Vitals/I & O Vital Sign - Last 24 Hours 09/10/17 09/10/17 09/10/17 09/10/17 10:18 11:00 14:39 17:20 Temp 97.8 97.8 97.8 97.8 Pulse 58 62 62 Resp 20 18 18 B/P (MAP) 109/61 (77) 115/65 (82) 115/65 Pulse Ox 93 95 95 O2 Delivery Room Air Room Air Room Air 09/10/17 09/10/17 09/10/17 09/10/17 19:00 20:00 20:35 23:00 Temp 97.7 98.1 97.7 98.1 Pulse 63 63 65 Resp 18 20 B/P (MAP) 130/62 (84) 130/62 118/60 (79) Pulse Ox 96 96 O2 Delivery Room Air Room Air Room Air 09/11/17 09/11/17 09/11/17 09/11/17 03:00 07:00 08:41 08:41 Temp 97.9 97.7 97.9 97.7 Pulse 53 64 53 53 Resp 16 20 B/P (MAP) 109/58 (75) 125/66 (85) 109/58 109/58 Pulse Ox 95 94 O2 Delivery Room Air Room Air FELI GABRIEL MD Sep 11, 2017 09:22
[2017-09-11] MEDS ORDERED: METH4TAB PO (09:37)
[2017-09-11 10:53] VITALS: BP 135/84
[2017-09-12] MEDS ORDERED: methylPREDNISolone 4 MG TABLET. PO SCH (09:00)
[2017-09-13] MEDS ORDERED: methylPREDNISolone 4 MG TABLET. PO SCH (09:00)
[2017-09-14] MEDS ORDERED: methylPREDNISolone 4 MG TABLET. PO SCH (09:00)
--- NOTE | 2017-09-14 09:34 | DS ---
DATE OF DISCHARGE: 09/11/2017 CHIEF COMPLAINT: Acute hypoxic respiratory failure. HOSPITAL COURSE: The patient is a 62-year-old gentleman with multiple cardiac issues who presented with shortness of breath and was found to be in CSF exacerbation, systolic. This was treated initially the CVC with increased IV Lasix. He responded well and became compensated. Episode was probably brought on by poorly controlled hypertension, which was also addressed with additional medications. Mild troponin leak was attributed to above issues. He was continued on all his other cardiac medications for CAD as well as AFib and mechanical aortic valve. Other medical issues included mild KEVAN, which was thought to be secondary to Lasix diuresis and CHF. This; however, corrected during hospitalization as well. Last issue was left ankle pain and big toe gout. Dr. Weldon was consulted, steroids, Colcrys were added. Allopurinol was restarted. DISCHARGE PHYSICAL EXAMINATION: VITAL SIGNS: Blood pressure of 109/61, heart rate of 58, respiratory rate at 18. He is afebrile. GENERAL: This is an obese 62-year-old gentleman, alert and oriented, no acute distress. LUNGS: Clear. HEART: Regular rate and rhythm. ABDOMEN: Has positive bowel sounds, soft, nontender. EXTREMITIES: Show minimal left ankle swelling, full mobility. DISCHARGE DIAGNOSES: Congestive heart failure exacerbation, troponin leak, gout flare. DISCHARGE DISPOSITION: To home with services. DISCHARGE CONDITION: Improved. DISCHARGE MEDICATIONS: Please refer to MAR. DISCHARGE INSTRUCTIONS: The patient will follow up with Cardiology in 1-2 weeks as well as his primary care physician within the next month. A greater than 30 minutes was spent in arranging this discharge. CIARA THORPE MD DR: UR/nts JOB#: [id number] / [id number] LAVINIA Stubbs MD
[2017-09-15] MEDS ORDERED: methylPREDNISolone 4 MG TABLET. PO SCH (09:00)
== END 2017-09-11 14:00 | disposition home health service (06) | DRG 291 ==
LOC: ER 08:29 → 1 WEST ICU 10:20 → 5 SOUTH 09-09 11:30
PROVIDERS: ADMIT Internal Medicine Hematology & Oncology; ATTEND Internal Medicine Hematology & Oncology
PROC: 0DB78ZX Excision of Stomach, Pylorus, Via Natural or Artificial Opening Endoscopic, Diagnostic (ICD-10-PCS; principal; 2017-09-08 14:30)
DX: I13.0 Hypertensive heart and chronic kidney disease with heart failure and stage 1 through stage 4 chronic kidney disease, or unspecified chronic kidney disease (principal); I50.43 Acute on chronic combined systolic (congestive) and diastolic (congestive) heart failure; J96.01 Acute respiratory failure with hypoxia; N17.0 Acute kidney failure with tubular necrosis; I42.9 Cardiomyopathy, unspecified; N18.3 Chronic kidney disease, stage 3 (moderate); E11.22 Type 2 diabetes mellitus with diabetic chronic kidney disease; I16.0 Hypertensive urgency; K21.0 Gastro-esophageal reflux disease with esophagitis; K25.9 Gastric ulcer, unspecified as acute or chronic, without hemorrhage or perforation; E66.9 Obesity, unspecified; E78.5 Hyperlipidemia, unspecified; I25.10 Atherosclerotic heart disease of native coronary artery without angina pectoris; I25.2 Old myocardial infarction; I48.91 Unspecified atrial fibrillation; K76.0 Fatty (change of) liver, not elsewhere classified; M10.9 Gout, unspecified; M17.0 Bilateral primary osteoarthritis of knee; Z68.32 Body mass index [BMI] 32.0-32.9, adult; Z79.01 Long term (current) use of anticoagulants; Z86.010 Personal history of colon polyps; Z88.8 Allergy status to other drugs, medicaments and biological substances; Z95.2 Presence of prosthetic heart valve; Z95.5 Presence of coronary angioplasty implant and graft; Z95.810 Presence of automatic (implantable) cardiac defibrillator
CPT/HCPCS: 36415; 36600; 71010; 73600; 76700; 80048; 80053; 80076; 80307; 81001; 82553; 82805; 82962; 83605; 83690; 83735; 83880; 84443; 84484; 84550; 85007; 85025; 85610; 85651; 87641; 88305; 88342; 90686; 90732; 93005; 94250; 94640; 94660; 96374; 96375; J1650; J1940; J2060; J2270; J2704; J7120; J7509; J7620; 99285-25; G0479

== ENCOUNTER 2019-11-10 22:13 | Inpatient (IN) | payer BC, MEDICARE ==
[~2019-11-10] VITALS: Ht 182.9 cm; Wt 102.7 kg
[~2019-11-10 22:13] MED LIST changes: +COLC0.6T34 PO; +EZET10TA20 PO; +FURO-69 PO; +FURO20TA3 PO; +FURO40TA4 PO; +HYDR-2765 PO; +HYDR-3164 PO; -HYDR-971 PO; +METF500T16 PO; +METH4TAB PO; +NITR0.4T22 SL; +PANT40TA77 PO; +POTA20TA4 PO; +PRAM0.255 PO; +PRED20TA PO; +SACU1TAB4 PO; +SACU1TAB7 PO; +SPIR25TA PO; +WARF-31 PO; +WARF-78 PO; +WARF2.5T71 PO; +WARF4TAB64 PO; +WARF6TAB47 PO; +WARF6TAB49 PO; -WARF6TAB7 PO; +ZOLP10TA4 PO
[2019-11-10 22:57] LABS: BASO % 0 % (0-3); EOS # 0.1 x10^3/uL (0.0-0.7); EOS % 1 % (0-3); HEMATOCRIT 40.9 % (39.0-53.0); HEMOGLOBIN 13.3 g/dL (13.0-17.5); LYMPH # 0.7 x10^3/uL (1.0-4.8); LYMPH % 11 % (24-48); MEAN CORPUSCULAR HEMOGLOBIN 31 pg (25-35); MEAN CORPUSCULAR HGB CONC 33 g/dL (31-37); MEAN CORPUSCULAR VOLUME 94 fL (79-100); MONO # 0.7 x10^3/uL (0.0-1.1); MONO % 10 % (0-9); NEUT # 5.2 x10^3/uL (1.8-7.7); NEUT % 78 % (31-73); PLATELET COUNT 170 x10^3/uL (140-400); RED BLOOD COUNT 4.35 x10^6/uL (4.30-5.70); RED CELL DISTRIBUTION WIDTH 16.6 % (11.5-14.5); WHITE BLOOD COUNT 6.8 x10^3/uL (4.0-11.0)
[2019-11-10 23:09] LABS: PROTHROMBIN TIME PATIENT 40.5 SEC (11.7-14.0)
[2019-11-10 23:10] LABS: CREATININE 2.5 mg/dL (0.7-1.3); POTASSIUM 4.3 mmol/L (3.5-5.1)
--- NOTE | 2019-11-10 23:11 | RAD ---
Indication: Chest pain TECHNIQUE:Portable AP chest X-ray COMPARISON: 05/11/2019 FINDINGS: Heart is normal in size. Lungs are clear. No pneumothorax or pleural effusion. Left chest wall cardiac pacer with leads projecting over the heart. Median sternotomy. Visualized bony thorax within normal limits. Right subclavian catheter noted. IMPRESSION: No acute pulmonary process. Electronically signed by: Orlin Tavarez DO (11/10/2019 11:08 PM) [facility]
[2019-11-10 23:17] LABS: ALBUMIN/GLOBULIN RATIO 1.3 (1.0-1.7); MAGNESIUM 2.1 mg/dL (1.8-2.4); TOTAL BILIRUBIN 0.4 mg/dL (0.2-1.0)
--- NOTE | 2019-11-11 00:07 | PHYS DOC ---
Past Medical History Past Medical History: CAD, CHF, High Cholesterol, Hypertension, CT Past Surgical History: Coronary Bypass Surgery, Pacemaker, Other Additional Past Surgical Histo: defib, aortic valve replacement, cardiac cath with stent Alcohol Use: None Drug Use: None Adult General Chief Complaint Chief Complaint: CHEST PAIN HPI HPI Patient is a 64 year old male who was brought here by EMS for evaluation of chest pain that radiated to both arm started about 2 hours ago. Patient has hist ory hypertension, coronary artery disease, aortic valve replacement. Patient is on Coumadin. Her stone layout marker is at [facility] [place], however is on high- volume, so EMS brought him here for evaluation. Patient denies any fever. She denies any abdominal pain, no nausea vomiting. All other ROS is negative unless otherwise noted in HPI Review of Systems Review of Systems See above Current Medications Current Medications Current Medications Medications (Trade) Dose Ordered Sig/Harshal Start Time Stop Time Status Last Admin Dose Admin Ondansetron HCl (Zofran) 4 mg PRN Q8HRS PRN 11/11/19 00:15 11/12/19 00:14 Allergies Allergies Allergies Coded Allergies Type Severity Reaction Last Updated Verified lisinopril Allergy Intermediate rash 09/08/17 Yes Physical Exam Physical Exam See above Constitutional: Well developed, well nourished, no acute distress, non-toxic appearance. [] HENT: Normocephalic, atraumatic, bilateral external ears normal, oropharynx moist, no oral exudates, nose normal. [] Eyes: PERRLA, EOMI, conjunctiva normal, no discharge. [] Neck: Normal range of motion, no tenderness, supple, no stridor. [] Cardiovascular:Heart rate regular rhythm, systolic murmur with metalic clck. Lungs & Thorax: Bilateral breath sounds clear to auscultation [] Abdomen: Bowel sounds normal, soft, no tenderness, no masses, no pulsatile masses. [] Skin: Warm, dry, no erythema, no rash. [] Back: No tenderness, no CVA tenderness. [] Extremities: No tenderness, no cyanosis, no clubbing, ROM intact, no edema. [] Neurologic: Alert and oriented X 3, normal motor function, normal sensory function, no focal deficits noted. [] Psychologic: Affect normal, judgement normal, mood normal. [] Current Patient Data Vital Signs Vital Signs Date Time Temp Pulse Resp B/P (MAP) Pulse Ox O2 Delivery O2 Flow Rate FiO2 11/10/19 22:13 97.3 80 36 163/73 (103) 96 Nasal Cannula 2.0 97.3 Lab Values Laboratory Tests Test 11/10/19 22:21 White Blood Count 6.8 x10^3/uL (4.0-11.0) Red Blood Count 4.35 x10^6/uL (4.30-5.70) Hemoglobin 13.3 g/dL (13.0-17.5) Hematocrit 40.9 % (39.0-53.0) Mean Corpuscular Volume 94 fL (79-100) Mean Corpuscular Hemoglobin 31 pg (25-35) Mean Corpuscular Hemoglobin Concent 33 g/dL (31-37) Red Cell Distribution Width 16.6 % (11.5-14.5) H Platelet Count 170 x10^3/uL (140-400) Neutrophils (%) (Auto) 78 % (31-73) H Lymphocytes (%) (Auto) 11 % (24-48) L Monocytes (%) (Auto) 10 % (0-9) H Eosinophils (%) (Auto) 1 % (0-3) Basophils (%) (Auto) 0 % (0-3) Neutrophils # (Auto) 5.2 x10^3/uL (1.8-7.7) Lymphocytes # (Auto) 0.7 x10^3/uL (1.0-4.8) L Monocytes # (Auto) 0.7 x10^3/uL (0.0-1.1) Eosinophils # (Auto) 0.1 x10^3/uL (0.0-0.7) Basophils # (Auto) 0.0 x10^3/uL (0.0-0.2) Prothrombin Time 40.5 SEC (11.7-14.0) H Prothrombin Time INR 4.2 (0.8-1.1) H Sodium Level 139 mmol/L (136-145) Potassium Level 4.3 mmol/L (3.5-5.1) Chloride Level 103 mmol/L (98-107) Carbon Dioxide Level 26 mmol/L (21-32) Anion Gap 10 (6-14) Blood Urea Nitrogen 44 mg/dL (8-26) H Creatinine 2.5 mg/dL (0.7-1.3) H Estimated GFR (Cockcroft-Gault) 26.0 BUN/Creatinine Ratio 18 (6-20) Glucose Level 129 mg/dL (70-99) H Calcium Level 9.0 mg/dL (8.5-10.1) Magnesium Level 2.1 mg/dL (1.8-2.4) Total Bilirubin 0.4 mg/dL (0.2-1.0) Aspartate Amino Transferase (AST) 99 U/L (15-37) H Alanine Aminotransferase (ALT) 134 U/L (16-63) H Alkaline Phosphatase 71 U/L (46-116) Troponin I Quantitative 0.085 ng/mL (0.000-0.055) HP-Pis-L-Type Natriuretic Peptide 1809 pg/mL (0-124) H Total Protein 7.0 g/dL (6.4-8.2) Albumin 4.0 g/dL (3.4-5.0) Albumin/Globulin Ratio 1.3 (1.0-1.7) Lipase 268 U/L (73-393) Laboratory Tests 11/10/19 22:21 Laboratory Tests 11/10/19 22:21 EKG EKG EKG WAS READ BY THIS PHYSICIAN AT 2216, RATE OF 80 BPM, NO STEMI, PACED RHYTHM, Radiology/Procedures Radiology/Procedures [][facility] [address] [place], [place] [id number] IMAGING REPORT Signed PATIENT: LAURIE FARRIS CACCOUNT: [id number] : 1955 LOCATION: ER AGE: 64 SEX: M EXAM STATUS: REG ER ORD. PHYSICIAN: DAVID JOHNSON DO REASON: CHEST PAIN PROCEDURE: PORTABLE CHEST 1V Indication: Chest pain TECHNIQUE:Portable AP chest X-ray COMPARISON: 05/11/2019 FINDINGS: Heart is normal in size. Lungs are clear. No pneumothorax or pleural effusion. Left chest wall cardiac pacer with leads projecting over the heart. Median sternotomy. Visualized bony thorax within normal limits. Right subclavian catheter noted. IMPRESSION: No acute pulmonary process. Electronically signed by: Orlin Tavarez DO (11/10/2019 11:08 PM) [facility] DICTATED and SIGNED BY: ORLIN TAVAREZ DO DATE: 11/10/19 2720 Course & Med Decision Making Course & Med Decision Making Pertinent Labs and Imaging studies reviewed. (See chart for details) Patient was doing much better, almost pain free, troponin I was slightly elevated, will admit him to the hospital for further evaluation. Dragon Disclaimer Dragon Disclaimer This electronic medical record was generated, in whole or in part, using a voice recognition dictation system. Departure Departure Impression: Primary Impression: Chest pain Disposition: ADMITTED INPATIENT Admitting Physician: BRAYAN (DR. ITN WILLIS) Condition: STABLE Referrals: LAVINIA NORIEGA (PCP) DAVID JOHNSON DO Nov 11, 2019 00:07
[2019-11-11] MEDS ORDERED: ONDANSETRON PF 4 MG/2 ML VIAL. IV PRN (00:15)
[2019-11-11 02:00] VITALS: BP 119/73
--- NOTE | 2019-11-11 02:00 | NUR ---
The patient, LAURIE FARRIS, 64 y/o, M admitted by TIN WILLIS MD, was given written information regarding hospital policies, unit procedures and contact persons. Valuables were checked and patient's daughter took home his wallet and watch. Patient stated he is on Heart Transplant list at . Patient stated he was told by Home Health nurse his line was too far out of his chest and to go to ED. Patient went to ED and doctor told patient his line was only out by 2mm and the doctor was not concerned. Patient requested Central line in chest to be changed. Due to patient's INR >5 SHARMILA COTTON told patient to hold Warfarin 1 day and take 2mg Warfarin Sat & Sun. then call his Cardiology doctor on Thursday for orders to check INR and have his Central line replaced on Thursday. Shortly afterwards SHARMILA COTTON dc'd patient home. Patient came to [place] stating he was feeling tired and didn't think he was getting his medication as ordered due to line being out further than what he started with. Patient was admitted to [facility] with continuous Milrinone gtt running ordered by physician. Patient stated he feels tired, as if he was not getting the Milrinone. This RN called ED to ask RN & ED doctor about patient's Central line placement. Patient had chest Xray performed but line placement was not ordered. Per ED RN doctor said he could read it himself and it was in place but was not willing to order line placement on cxray performed nor would [place] ED MD verify in the chart. In report [facility] RN was told ED MD was calling Robert and Elia at [phone] to report on this Patient. RN will continue to monitor.
[2019-11-11] MEDS ORDERED: MEXI150C PO (04:38)
[2019-11-11] MEDS ORDERED: AMIO400T5 PO (04:38)
[2019-11-11] MEDS ORDERED: SPIR25TA5 PO (04:38)
[2019-11-11] MEDS ORDERED: BUME2TAB3 PO (04:38)
[2019-11-11] MEDS ORDERED: WARF2TAB96 PO (04:47)
[2019-11-11] MEDS ORDERED: WARF3TAB50 PO (04:47)
[2019-11-11] MEDS ORDERED: MILR20PI IV (05:32)
[2019-11-11 07:00] VITALS: BP 98/53
--- NOTE | 2019-11-11 07:28 | EKG ---
[facility] [address] [place] [id number] Test Date: 2019-11-10 Test Time: 22:14:41 Pat Name: LAURIE CUIPriyankNohemi Department: Room: Gender: M [employer]: : [id number] Requested By: DAVID JOHNSON Order Number: [id number] Reading MD: Measurements Intervals Calcium Rate: 80 P: 43 CO: 210 QRS: 102 QRSD: 192 T: -18 QT: 456 QTc: 530 Interpretive Statements SINUS RHYTHM RIGHTWARD AXIS NON SPECIFIC INTRAVENTRICULAR BLOCK ABNORMAL ECG No previous ECG available for comparison
--- NOTE | 2019-11-11 08:20 | PDOC2 ---
CARDIAC CONSULT DATE OF CONSULT Date of Consult DATE: 11/11/19 TIME: 08:09 REASON FOR CONSULT Reason for Consult: Chest pain REFERRING PHYSICIAN Referring Physician: Jermaine SOURCE Source: Chart review, Patient HISTORY OF PRESENT ILLNESS HISTORY OF PRESENT ILLNESS This is a pleasant 64 yo male admitted for complains of chest pain. He is regularly seen by cardiology and recently has been checked. He was actually at ER yesterday complaining that his central line is not functioning correctly but was noted to be ok and was told to follow up as scheduled next week. He came in last night due to chest pain and this was tightness to left side and nonradiating with no associated nausea but slightly SOA but also was anxious at that time worried about his treatment and still worried about his central line access. He has central line access due to chronic Milrinone therapy. He is not a heart transplant candidate denie by [place] recently. He has had recent LHC with CAD but no intervenable lesion in 07/2019. No n/v. intractable coughing. No palpitations and no new exertional CP nor RICHARDSON. His activity tolerance is the same. Currently no CP and no SOA. He has been complaint with his medications and FR at 1500 and diet as well. 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 moist/pink Heart: Regular rate (paced), Other (3/6 systolic murmur to OLGA border with audible click) Abdomen: Soft, No tenderness Extremities: No cyanosis, No edema Skin: No breakdown, No significant lesion Neuro: Normal speech, Sensation intact Psych/Mental Status: Mental status NL, Other (anxious) MUSCULOSKELETAL: Osteoarthritic changes both hands VITALS/I&O VITALS/I&O: Vital Signs Date Time Temp Pulse Resp B/P (MAP) Pulse Ox O2 Delivery O2 Flow Rate FiO2 11/11/19 07:00 97.9 80 16 98/53 (68) 97 Room Air 97.9 11/10/19 23:02 2.0 I & O 11/10/19 11/10/19 11/11/19 15:00 23:00 07:00 Intake Total 0 ml Output Total 0 ml Balance 0 ml LABS Lab: Laboratory Tests Test 11/10/19 22:21 11/11/19 01:30 White Blood Count 6.8 x10^3/uL (4.0-11.0) Red Blood Count 4.35 x10^6/uL (4.30-5.70) Hemoglobin 13.3 g/dL (13.0-17.5) Hematocrit 40.9 % (39.0-53.0) Mean Corpuscular Volume 94 fL (79-100) Mean Corpuscular Hemoglobin 31 pg (25-35) Mean Corpuscular Hemoglobin Concent 33 g/dL (31-37) Red Cell Distribution Width 16.6 % (11.5-14.5) H Platelet Count 170 x10^3/uL (140-400) Neutrophils (%) (Auto) 78 % (31-73) H Lymphocytes (%) (Auto) 11 % (24-48) L Monocytes (%) (Auto) 10 % (0-9) H Eosinophils (%) (Auto) 1 % (0-3) Basophils (%) (Auto) 0 % (0-3) Neutrophils # (Auto) 5.2 x10^3/uL (1.8-7.7) Lymphocytes # (Auto) 0.7 x10^3/uL (1.0-4.8) L Monocytes # (Auto) 0.7 x10^3/uL (0.0-1.1) Eosinophils # (Auto) 0.1 x10^3/uL (0.0-0.7) Basophils # (Auto) 0.0 x10^3/uL (0.0-0.2) Prothrombin Time 40.5 SEC (11.7-14.0) H Prothrombin Time INR 4.2 (0.8-1.1) H Sodium Level 139 mmol/L (136-145) Potassium Level 4.3 mmol/L (3.5-5.1) Chloride Level 103 mmol/L (98-107) Carbon Dioxide Level 26 mmol/L (21-32) Anion Gap 10 (6-14) Blood Urea Nitrogen 44 mg/dL (8-26) H Creatinine 2.5 mg/dL (0.7-1.3) H Estimated GFR (Cockcroft-Gault) 26.0 BUN/Creatinine Ratio 18 (6-20) Glucose Level 129 mg/dL (70-99) H Calcium Level 9.0 mg/dL (8.5-10.1) Magnesium Level 2.1 mg/dL (1.8-2.4) Total Bilirubin 0.4 mg/dL (0.2-1.0) Aspartate Amino Transferase (AST) 99 U/L (15-37) H Alanine Aminotransferase (ALT) 134 U/L (16-63) H Alkaline Phosphatase 71 U/L (46-116) Troponin I Quantitative 0.085 ng/mL (0.000-0.055) 0.106 ng/mL (0.000-0.055) KB-Per-Q-Type Natriuretic Peptide 1809 pg/mL (0-124) H Total Protein 7.0 g/dL (6.4-8.2) Albumin 4.0 g/dL (3.4-5.0) Albumin/Globulin Ratio 1.3 (1.0-1.7) Lipase 268 U/L (73-393) Laboratory Tests 11/10/19 22:21 Laboratory Tests 11/10/19 22:21 ECHOCARDIOGRAM ECHOCARDIOGRAM 08/25/2019 Severe LV Dilatation. LV end diastolic volume (EDV) by the Biplane [id number] calculation is ~= 370 mL Marked LV systolic dysfunction on a global basis with EF ~= 20%. By the Biplane [id number] calculation, the EF is = 21% Grade III (severe) left ventricular diastolic dysfunction. Elevated left atrial pressure The right ventricle is mildly dilated with qualitatively mildly depressed RV systolic function. There is borderline TAPSE (~=14-16 mm) and mildly abnormal TDI s' velocity (~= 9-10cm/sec). Moderate left atrial dilatation Normal function of mechanical aortic valve replacement Moderate Elevation of the PA Systolic Pressure (PASP ~= 1/2 of systemic pressure): estimated Peak Systolic PA Pressure 48 mmHg The aortic root is mildly dilated HEART CATH HEART CATH CORONARY ARTERY ANATOMY: Left main originates from left coronary cusp, bifurcates into LAD and left circumflex. It is a short vessel with no significant disease. The left circumflex artery has a mild 20% disease and gives rise to 2 OM branches with no significant disease. Left anterior descending artery gives rise to a very big bifurcating diagonal branch. There is a patent stent in the mid LAD disease. This was a type 3 LAD. It wraps around the apex. The right coronary artery originates from the right coronary cusp. It bifurcates PDA and posterolateral branch. There was mild plaque in the proximal LAD in the range of 20%, mild plaque in the ostial posterior descending artery. HEMODYNAMIC FINDINGS: Blood pressure 139/87 with a mean pressure of 102. Heart rate 69. AO sat 99%. RA sat 63%. PA sat 62%. Cardiac output by thermodilution 4.0 L/minute with a cardiac index of 1.75 L/minute per sq m. Cardiac output by Aparna principle of 5.08 L/minute with a cardiac index of 2.22 L/minute per sq m. RA pressure 17 mmHg. RV pressure 73/18. Pulmonary capillary wedge pressure 35 mmHg. PA pressure 70/36/47 mmHg. Transpulmonary gradient 12 mmHg. Pulmonary vascular resistance 3 Wood. CONCLUSION: Mild ischemia, 20% mild stenosis in the proximal right coronary artery and the proximal posterior descending artery. Mild 20% disease in the proximal left circumflex artery. Patent stent in the mid left anterior descending. Cardiac output by thermodilution 4.0 L/minute with a low cardiac index of 1.75 L/minute per sq m and an elevated pulmonary capillary wedge pressure of 35 mmHg. Pulmonary hypertension with a mean PA pressure of 47 mmHg with a pulmonary vascular resistance of 3 Wood. This is most likely suggestive of left heart disease. Hemostasis achieved with TR band to the right radial artery access site. The [place] catheter was secured in place through the right internal jugular vein access site. RECOMMENDATIONS: The patient appeared to have a low cardiac index with elevated pulmonary capillary wedge pressure causing pulmonary hypertension. The patient will benefit from further diuresis and inotrope therapy if needed. The patient to continue medical therapy for his coronary artery disease, including aspirin, high-intensity statin, and beta ramon as tolerated. The plan above discussed w ariana Curiel, interventional cardiology attending. I was present during the entire procedure. I assisted and supervised the fellow's action and agree with the assessment and recommendations as outlined above. Elton Curiel MD 05/16/2019 ASSESSMENT/PLAN ASSESSMENT/PLAN 1. Atypical CP: likely precipitated by anxiety. 2. Chronic trop elevation: peaked at 0.1 and this is in relation to his significant heart disease 3. Anxiety: per PCP 4. NICM: last EF at 20% Compensated. NYHA 2-3 3 , stage D 5. CAD: recent LHC with patent LAD and mild disease to other vessels otherwise 6. Secondary pulmonary HTN with past hx of sarcoidosis 7. PAFIB: presently SR. recent interrogation with AFIB burden 0. 8. CKD3 9. Mechanical AVR (St. Bin) with chronic anticoagulation: On warfarin. INR 3.7. Goal INR 2.5-3.5. 10. HTN; controlled 11. HLP 12. Chronic systolic/diastolic CHF: compensated 13. Hx of High PVC burden with NSVT: hence on home amiodarone and mexilitine 14. 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 recent check with 99% biv pacing 09/30/2019 Recommendations 1. Continue secondary prevention, No home BB but contemplating to starting accdg to records. Continue home bumex and milrinone drip rate at 0.125 mcg 2. Follow up with CHF clinic as scheduled next week. He was seen by his detention deputy with med review on 11/04/[address] Osman 3. BMP and INR today. Cr 2.5 but unclear recent baseline pt does have entresto moderate dosing at home. If Cr remains elevated then may consider stopping aldactone and decreasing his entresto. Will defer any changes to cardiology and will need further lab work next week. 4. Potential DC this afternoon RADHA VELÁZQUEZ APRN Nov 11, 2019 08:20
--- NOTE | 2019-11-11 08:46 | PDOC1 ---
History and Physical Date of Admission Date of Admission DATE: 11/11/19 TIME: 08:44 Identification/Chief Complaint Chief Complaint Chest pain Source Source: Patient History of Present Illness History of Present Illness Mr Hernández is a 64 yo M w/ PMHx CAD s/p CABG, sCHF s/p AICD, s/p AVR, HLD, HTN who was brought here by EMS for evaluation of chest pain that radiated to both arm started about 2 hours prior to admission. Patient has history hypertension, coronary artery disease, aortic valve replacement. Patient is on Coumadin. Her fisher mussel is at [facility], however was on high- volume, so EMS brought him here for evaluation. Patient denies any fever. He denies any abdominal pain, no nausea vomiting. He is very anxious and feels his subclavian PICC has become dislodged and is worried about his milrinone infusions. Cr 2.5-->2.4. Troponin 0.114. EKG 80bpm, no STEMI, paced rhythm Past Medical History Cardiovascular: AFIB, CAD, CHF, HTN, Hyperlipidemia, Valve insufficiency Pulmonary: No pertinent hx GI: GERD Heme/Onc: No pertinent hx Hepatobiliary: No pertinent hx Psych: No pertinent hx Musculoskeletal: Osteoarthritis Rheumatologic: Gout Infectious disease: No pertinent hx Renal/: No pertinent hx Endocrine: Diabetes Past Surgical History Past Surgical History: Other Family History Family History: Hypertension Social History Smoke: No ALCOHOL: none Drugs: None Current Problem List Problem List Problems Medical Problems: (1) Chest pain Status: Acute Current Medications Current Medications Current Medications Ondansetron HCl (Zofran) 4 mg PRN Q8HRS PRN IV NAUSEA/VOMITING; Start 11/11/19 at 00:15; Stop 11/12/19 at 00:14 Active Scripts Active Entresto 49 mg-51 mg Tablet (Sacubitril/Valsartan) 1 Each Tablet 1 Tab PO BID 30 Days Reported Milrinone-D5w 20 Mg/100 Ml (Milrinone Lactate/D5w) 20 Mg/100 Ml Piggyback Unknown Dose IV CONT PRN PRN Warfarin Sodium 3 Mg Tablet 3 Mg PO DAILY Warfarin Sodium 2 Mg Tablet 2 Mg PO DAILY Mexiletine Hcl 150 Mg Capsule 150 Mg PO TID PRN Bumetanide 2 Mg Tablet 2 Mg PO DAILY Amiodarone Hcl 400 Mg Tablet 1 Tab PO DAILY 30 Days Spironolactone 25 Mg Tablet 25 Mg PO DAILY Take 1/2 tab Q day NITROGLYCERIN SubLingual (Nitroglycerin) 0.4 Mg Tab.subl 1 Tab SL UD PRN Zetia (Ezetimibe) 10 Mg Tablet 1 Tab PO DAILY Pantoprazole Sodium (Pantoprazole Sodium) 40 Mg Tablet.dr 1 Tab PO DAILY Zolpidem Tartrate 10 Mg Tablet 1 Tab PO QHS PRN Hydrocodone-Apap 7.5-325 (Hydrocodone Bit/Acetaminophen) 1 Each Tablet 1 Tab PO PRN Q6HRS PRN Crestor (Rosuvastatin Calcium) 10 Mg Tablet 40 Mg PO HS Aspir-Low (Aspirin) 81 Mg Tablet.dr 81 Mg PO DAILY One Daily For Men Tablet (Multivits-Minerals/Fa/Lycopene) 1 Each Tablet 1 Each PO DAILY Zyloprim (Allopurinol) 300 Mg Tablet 300 Mg PO DAILY Allergies Allergies: Coded Allergies: lisinopril (Verified Allergy, Intermediate, rash, 09/08/17) ROS General: YES: Fatigue, Malaise; No: Chills, Night Sweats, Appetite, Other PSYCHOLOGICAL ROS: YES: Anxiety; No: Behavioral Disorder, Concentration difficultie, Decreased libido, Depr ession, Disorientation, Hallucinations, Hostility, Irritablity, Memory difficulties, Mood Swings, Obsessive thoughts, Physical abuse, Sexual abuse, Sleep disturbances, Suicidal ideation, Other Eyes: No Blurry vision, No Decreased vision, No Double vision, No Dry eyes, No Excessive tearing, No Eye Pain, No Itchy Eyes, No Loss of vision, No Photophobia, No Scotomata, No Uses contacts, No Uses glasses, No Other HEENT: No: Heacaches, Visual Changes, Hearing change, Nasal congestion, Nasal discharge, Oral lesions, Sinus pain, Sore Throat, Epistaxis, Sneezing, Snoring, Tinnitus, Vertigo, Vocal changes, Other ALLERGY AND IMMUNOLOGY: No: Hives, Insect Bite Sensitivity, Itchy/Watery Eyes, Nasal Congestion, Post Nasal Drip, Seasonal Allergies, Other Hematological and Lymphatic: No: Bleeding Problems, Blood Clots, Blood Transfusions, Brusing, Night Sweats, Pallor, Swollen Lymph Nodes, Other ENDOCRINE: No: Breast Changes, Galactorrhea, Hair Pattern Changes, Hot Flashes, Malaise/lethargy, Mood Swings, Palpitations, Polydipsia/polyuria, Skin Changes, Temperature Intolerance, Unexpected Weight Changes, Other Breast: No New/Changing Breast Lumps, No Nipple changes, No Nipple discharge, No Other Respiratory: YES: Cough; No: Hemoptysis, Orthopnea, Pleuritic Pain, Shortness of breath, SOB with excertion, Sputum Changes, Stridor, Tachypnea, Wheezing, Other Cardiovascular: No Chest Pain, No Palpitations, No Orthopnea, No Paroxysmal Noc. Dyspnea, No Edema, No Lt Headedness, No Other Gastrointestinal: No Nausea, No Vomiting, No Abdominal Pain, No Diarrhea, No Constipation, No Melena, No Hematochezia, No Other Genitourinary: No Dysuria, No Frequency, No Incontinence, No Hematuria, No Retention, No Discharge, No Urgency, No Pain, No Flank Pain, No Other, No , No , No , No , No , No , No Musculoskeletal: No Gait Disturbance, No Joint Pain, No Joint Stiffness, No Joint Swelling, No Muscle Pain, No Muscular Weakness, No Pain In:, No Swelling In:, No Other Neurological: No Behavorial Changes, No Bowel/Bladder ControlChng, No Confusion, No Dizziness, No Gait Disturbance, No Headaches, No Impaired Coord/balance, No Memory Loss, No Numbness/Tingling, No Seizures, No Speech Problems, No Tremors, No Visual Changes, No Weakness, No Other Skin: No Dry Skin, No Eczema, No Hair Changes, No Lumps, No Mole Changes, No Mottling, No Nail Changes, No Pruritus, No Rash, No Skin Lesion Changes, No Other, No Acne Physical Exam General: Alert, Oriented X3, Cooperative, No acute distress HEENT: Atraumatic, PERRLA, EOMI, Mucous membr. moist/pink Lungs: Clear to auscultation, Normal air movement Heart: S1S2, RRR, murmurs (2/6 EUN) Rectal Exam: not examined Extremities: No clubbing, No cyanosis, No edema, Normal pulses, No tenderness/swelling Skin: No rashes, No breakdown, No significant lesion Neuro: Normal gait, Normal speech, Strength at 5/5 X4 ext, Normal tone, Sensation intact, Cranial nerves 3-12 NL, Reflexes 2+ Psych/Mental Status: Mental status NL, Mood NL Vitals Vitals Vital Signs Date Time Temp Pulse Resp B/P (MAP) Pulse Ox O2 Delivery O2 Flow Rate FiO2 11/11/19 07:00 97.9 80 16 98/53 (68) 97 Room Air 97.9 11/10/19 23:02 2.0 Labs Labs Laboratory Tests Test 11/10/19 22:21 11/11/19 01:30 White Blood Count 6.8 x10^3/uL (4.0-11.0) Red Blood Count 4.35 x10^6/uL (4.30-5.70) Hemoglobin 13.3 g/dL (13.0-17.5) Hematocrit 40.9 % (39.0-53.0) Mean Corpuscular Volume 94 fL (79-100) Mean Corpuscular Hemoglobin 31 pg (25-35) Mean Corpuscular Hemoglobin Concent 33 g/dL (31-37) Red Cell Distribution Width 16.6 % (11.5-14.5) Platelet Count 170 x10^3/uL (140-400) Neutrophils (%) (Auto) 78 % (31-73) Lymphocytes (%) (Auto) 11 % (24-48) Monocytes (%) (Auto) 10 % (0-9) Eosinophils (%) (Auto) 1 % (0-3) Basophils (%) (Auto) 0 % (0-3) Neutrophils # (Auto) 5.2 x10^3/uL (1.8-7.7) Lymphocytes # (Auto) 0.7 x10^3/uL (1.0-4.8) Monocytes # (Auto) 0.7 x10^3/uL (0.0-1.1) Eosinophils # (Auto) 0.1 x10^3/uL (0.0-0.7) Basophils # (Auto) 0.0 x10^3/uL (0.0-0.2) Prothrombin Time 40.5 SEC (11.7-14.0) Prothromb Time International Ratio 4.2 (0.8-1.1) Sodium Level 139 mmol/L (136-145) Potassium Level 4.3 mmol/L (3.5-5.1) Chloride Level 103 mmol/L (98-107) Carbon Dioxide Level 26 mmol/L (21-32) Anion Gap 10 (6-14) Blood Urea Nitrogen 44 mg/dL (8-26) Creatinine 2.5 mg/dL (0.7-1.3) Estimated GFR (Cockcroft-Gault) 26.0 BUN/Creatinine Ratio 18 (6-20) Glucose Level 129 mg/dL (70-99) Calcium Level 9.0 mg/dL (8.5-10.1) Magnesium Level 2.1 mg/dL (1.8-2.4) Total Bilirubin 0.4 mg/dL (0.2-1.0) Aspartate Amino Transf (AST/SGOT) 99 U/L (15-37) Alanine Aminotransferase (ALT/SGPT) 134 U/L (16-63) Alkaline Phosphatase 71 U/L (46-116) Troponin I Quantitative 0.085 ng/mL (0.000-0.055) 0.106 ng/mL (0.000-0.055) QM-Gra-G-Type Natriuretic Peptide 1809 pg/mL (0-124) Total Protein 7.0 g/dL (6.4-8.2) Albumin 4.0 g/dL (3.4-5.0) Albumin/Globulin Ratio 1.3 (1.0-1.7) Lipase 268 U/L (73-393) Laboratory Tests Test 11/10/19 22:21 11/11/19 01:30 White Blood Count 6.8 x10^3/uL (4.0-11.0) Red Blood Count 4.35 x10^6/uL (4.30-5.70) Hemoglobin 13.3 g/dL (13.0-17.5) Hematocrit 40.9 % (39.0-53.0) Mean Corpuscular Volume 94 fL (79-100) Mean Corpuscular Hemoglobin 31 pg (25-35) Mean Corpuscular Hemoglobin Concent 33 g/dL (31-37) Red Cell Distribution Width 16.6 % (11.5-14.5) Platelet Count 170 x10^3/uL (140-400) Neutrophils (%) (Auto) 78 % (31-73) Lymphocytes (%) (Auto) 11 % (24-48) Monocytes (%) (Auto) 10 % (0-9) Eosinophils (%) (Auto) 1 % (0-3) Basophils (%) (Auto) 0 % (0-3) Neutrophils # (Auto) 5.2 x10^3/uL (1.8-7.7) Lymphocytes # (Auto) 0.7 x10^3/uL (1.0-4.8) Monocytes # (Auto) 0.7 x10^3/uL (0.0-1.1) Eosinophils # (Auto) 0.1 x10^3/uL (0.0-0.7) Basophils # (Auto) 0.0 x10^3/uL (0.0-0.2) Prothrombin Time 40.5 SEC (11.7-14.0) Prothromb Time International Ratio 4.2 (0.8-1.1) Sodium Level 139 mmol/L (136-145) Potassium Level 4.3 mmol/L (3.5-5.1) Chloride Level 103 mmol/L (98-107) Carbon Dioxide Level 26 mmol/L (21-32) Anion Gap 10 (6-14) Blood Urea Nitrogen 44 mg/dL (8-26) Creatinine 2.5 mg/dL (0.7-1.3) Estimated GFR (Cockcroft-Gault) 26.0 BUN/Creatinine Ratio 18 (6-20) Glucose Level 129 mg/dL (70-99) Calcium Level 9.0 mg/dL (8.5-10.1) Magnesium Level 2.1 mg/dL (1.8-2.4) Total Bilirubin 0.4 mg/dL (0.2-1.0) Aspartate Amino Transf (AST/SGOT) 99 U/L (15-37) Alanine Aminotransferase (ALT/SGPT) 134 U/L (16-63) Alkaline Phosphatase 71 U/L (46-116) Troponin I Quantitative 0.085 ng/mL (0.000-0.055) 0.106 ng/mL (0.000-0.055) OM-Uen-K-Type Natriuretic Peptide 1809 pg/mL (0-124) Total Protein 7.0 g/dL (6.4-8.2) Albumin 4.0 g/dL (3.4-5.0) Albumin/Globulin Ratio 1.3 (1.0-1.7) Lipase 268 U/L (73-393) Images Images CXR - No acute pulmonary process. VTE Prophylaxis Ordered VTE Prophylaxis Devices: Yes VTE Pharmacological Prophylaxi: Yes Assessment/Plan Assessment/Plan A/P: Chest pain - no sign this is an acute GA Chronic trop elevation - peaked at 0.1 and this is in relation to his significant heart disease Anxiety - reassured well NICM - last EF at 20% Compensated. On milrinone infusion CAD - recent LHC with patent LAD and mild disease to other vessels otherwise Pulmonary HTN - multiple WHO classifications including sarcoid, CHF Sarcoidosis PAFIB - presently SR. recent interrogation with AFIB burden 0. CKD3 Mechanical AVR (St. Bin) with chronic anticoagulation: On warfarin. INR 3.7. Goal INR 2.5-3.5. 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
[2019-11-11 09:05] LABS: CHOLESTEROL/HDL RATIO 2.6
[2019-11-11 10:37] LABS: PROTHROMBIN TIME PATIENT 36.6 SEC (11.7-14.0)
[2019-11-11 11:06] VITALS: BP 104/59
--- NOTE | 2019-11-11 11:44 | NUR ---
SS following for discharge planning. SS reviewed pt chart. Pt is from home and is currently on room air. SS will continue to follow for discharge planning.
[2019-11-11 13:01] LABS: CALCIUM 8.8 mg/dL (8.5-10.1); CREATININE 2.4 mg/dL (0.7-1.3); GFR 27.3; POTASSIUM 4.1 mmol/L (3.5-5.1)
--- NOTE | 2019-11-11 14:45 | NUR ---
DISCHARGED PATIENT TO HOME. DISCHARGED INSTRUCTIONS GIVEN. PIV AND HEART MONITOR REMOVED. ESCORTED PATIENT INTO A PRIVATE VEHICLE.
--- NOTE | 2019-11-11 14:51 | PDOC3 ---
Discharge Summary Visit Information Date of Admission: Nov 11, 2019 Date of Discharge: Nov 11, 2019 Admitting Diagnosis: Chest pain Final Diagnosis Problems Medical Problems: (1) Chest pain Status: Acute Brief Hospital Course Allergies Allergies Coded Allergies Type Severity Reaction Last Updated Verified lisinopril Allergy Intermediate rash 09/08/17 Yes Vital Signs Vital Signs Date Time Temp Pulse Resp B/P (MAP) Pulse Ox O2 Delivery O2 Flow Rate FiO2 11/11/19 11:06 98.0 80 16 104/59 (74) 98 Room Air 98.0 11/10/19 23:02 2.0 Lab Results Laboratory Tests Test 11/10/19 22:21 11/11/19 01:30 11/11/19 06:34 11/11/19 09:00 White Blood Count 6.8 x10^3/uL (4.0-11.0) Red Blood Count 4.35 x10^6/uL (4.30-5.70) Hemoglobin 13.3 g/dL (13.0-17.5) Hematocrit 40.9 % (39.0-53.0) Mean Corpuscular Volume 94 fL (79-100) Mean Corpuscular Hemoglobin 31 pg (25-35) Mean Corpuscular Hemoglobin Concent 33 g/dL (31-37) Red Cell Distribution Width 16.6 % (11.5-14.5) Platelet Count 170 x10^3/uL (140-400) Neutrophils (%) (Auto) 78 % (31-73) Lymphocytes (%) (Auto) 11 % (24-48) Monocytes (%) (Auto) 10 % (0-9) Eosinophils (%) (Auto) 1 % (0-3) Basophils (%) (Auto) 0 % (0-3) Neutrophils # (Auto) 5.2 x10^3/uL (1.8-7.7) Lymphocytes # (Auto) 0.7 x10^3/uL (1.0-4.8) Monocytes # (Auto) 0.7 x10^3/uL (0.0-1.1) Eosinophils # (Auto) 0.1 x10^3/uL (0.0-0.7) Basophils # (Auto) 0.0 x10^3/uL (0.0-0.2) Prothrombin Time 40.5 SEC (11.7-14.0) 36.6 SEC (11.7-14.0) Prothromb Time International Ratio 4.2 (0.8-1.1) 3.7 (0.8-1.1) Sodium Level 139 mmol/L (136-145) 139 mmol/L (136-145) Potassium Level 4.3 mmol/L (3.5-5.1) 4.1 mmol/L (3.5-5.1) Chloride Level 103 mmol/L (98-107) 104 mmol/L (98-107) Carbon Dioxide Level 26 mmol/L (21-32) 25 mmol/L (21-32) Anion Gap 10 (6-14) 10 (6-14) Blood Urea Nitrogen 44 mg/dL (8-26) 45 mg/dL (8-26) Creatinine 2.5 mg/dL (0.7-1.3) 2.4 mg/dL (0.7-1.3) Estimated GFR (Cockcroft-Gault) 26.0 27.3 BUN/Creatinine Ratio 18 (6-20) Glucose Level 129 mg/dL (70-99) 112 mg/dL (70-99) Calcium Level 9.0 mg/dL (8.5-10.1) 8.8 mg/dL (8.5-10.1) Magnesium Level 2.1 mg/dL (1.8-2.4) Total Bilirubin 0.4 mg/dL (0.2-1.0) Aspartate Amino Transf (AST/SGOT) 99 U/L (15-37) Alanine Aminotransferase (ALT/SGPT) 134 U/L (16-63) Alkaline Phosphatase 71 U/L (46-116) Troponin I Quantitative 0.085 ng/mL (0.000-0.055) 0.106 ng/mL (0.000-0.055) 0.114 ng/mL (0.000-0.055) ZV-Yot-P-Type Natriuretic Peptide 1809 pg/mL (0-124) Total Protein 7.0 g/dL (6.4-8.2) Albumin 4.0 g/dL (3.4-5.0) Albumin/Globulin Ratio 1.3 (1.0-1.7) Lipase 268 U/L (73-393) Creatine Kinase 209 U/L (39-308) Triglycerides Level 86 mg/dL (0-150) Cholesterol Level 135 mg/dL (0-200) LDL Cholesterol, Calculated 67 mg/dL (0-100) VLDL Cholesterol, Calculated 17 mg/dL (0-40) Non-HDL Cholesterol Calculated 84 mg/dL (0-129) HDL Cholesterol 51 mg/dL (40-60) Cholesterol/HDL Ratio 2.6 Thyroid Stimulating Hormone (TSH) 3.025 uIU/mL (0.358-3.74) Laboratory Tests Test 11/10/19 22:21 11/11/19 01:30 11/11/19 06:34 11/11/19 09:00 White Blood Count 6.8 x10^3/uL (4.0-11.0) Red Blood Count 4.35 x10^6/uL (4.30-5.70) Hemoglobin 13.3 g/dL (13.0-17.5) Hematocrit 40.9 % (39.0-53.0) Mean Corpuscular Volume 94 fL (79-100) Mean Corpuscular Hemoglobin 31 pg (25-35) Mean Corpuscular Hemoglobin Concent 33 g/dL (31-37) Red Cell Distribution Width 16.6 % (11.5-14.5) Platelet Count 170 x10^3/uL (140-400) Neutrophils (%) (Auto) 78 % (31-73) Lymphocytes (%) (Auto) 11 % (24-48) Monocytes (%) (Auto) 10 % (0-9) Eosinophils (%) (Auto) 1 % (0-3) Basophils (%) (Auto) 0 % (0-3) Neutrophils # (Auto) 5.2 x10^3/uL (1.8-7.7) Lymphocytes # (Auto) 0.7 x10^3/uL (1.0-4.8) Monocytes # (Auto) 0.7 x10^3/uL (0.0-1.1) Eosinophils # (Auto) 0.1 x10^3/uL (0.0-0.7) Basophils # (Auto) 0.0 x10^3/uL (0.0-0.2) Prothrombin Time 40.5 SEC (11.7-14.0) 36.6 SEC (11.7-14.0) Prothromb Time International Ratio 4.2 (0.8-1.1) 3.7 (0.8-1.1) Sodium Level 139 mmol/L (136-145) 139 mmol/L (136-145) Potassium Level 4.3 mmol/L (3.5-5.1) 4.1 mmol/L (3.5-5.1) Chloride Level 103 mmol/L (98-107) 104 mmol/L (98-107) Carbon Dioxide Level 26 mmol/L (21-32) 25 mmol/L (21-32) Anion Gap 10 (6-14) 10 (6-14) Blood Urea Nitrogen 44 mg/dL (8-26) 45 mg/dL (8-26) Creatinine 2.5 mg/dL (0.7-1.3) 2.4 mg/dL (0.7-1.3) Estimated GFR (Cockcroft-Gault) 26.0 27.3 BUN/Creatinine Ratio 18 (6-20) Glucose Level 129 mg/dL (70-99) 112 mg/dL (70-99) Calcium Level 9.0 mg/dL (8.5-10.1) 8.8 mg/dL (8.5-10.1) Magnesium Level 2.1 mg/dL (1.8-2.4) Total Bilirubin 0.4 mg/dL (0.2-1.0) Aspartate Amino Transf (AST/SGOT) 99 U/L (15-37) Alanine Aminotransferase (ALT/SGPT) 134 U/L (16-63) Alkaline Phosphatase 71 U/L (46-116) Troponin I Quantitative 0.085 ng/mL (0.000-0.055) 0.106 ng/mL (0.000-0.055) 0.114 ng/mL (0.000-0.055) HF-Orr-P-Type Natriuretic Peptide 1809 pg/mL (0-124) Total Protein 7.0 g/dL (6.4-8.2) Albumin 4.0 g/dL (3.4-5.0) Albumin/Globulin Ratio 1.3 (1.0-1.7) Lipase 268 U/L (73-393) Creatine Kinase 209 U/L (39-308) Triglycerides Level 86 mg/dL (0-150) Cholesterol Level 135 mg/dL (0-200) LDL Cholesterol, Calculated 67 mg/dL (0-100) VLDL Cholesterol, Calculated 17 mg/dL (0-40) Non-HDL Cholesterol Calculated 84 mg/dL (0-129) HDL Cholesterol 51 mg/dL (40-60) Cholesterol/HDL Ratio 2.6 Thyroid Stimulating Hormone (TSH) 3.025 uIU/mL (0.358-3.74) Brief Hospital Course Mr Hernández is a 64 yo M w/ PMHx CAD s/p CABG, sCHF s/p AICD, s/p AVR, HLD, HTN who was brought here by EMS for evaluation of chest pain that radiated to both arm started about 2 hours prior to admission. Patient has history hypertension, coronary artery disease, aortic valve replacement. Patient is on Coumadin. 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 Patient denies any fever. He denies any abdominal pain, no nausea vomiting. He is very anxious and feels his subclavian PICC has become dislodged and is worried about his milrinone infusions. Cr 2.5-->2.4. Troponin 0.114. EKG 80bpm, no STEMI, paced rhythm CXR confirms good placement of subclavian catheter, seen by cardiology. Problem list: A/P: Chest pain - no sign this is an acute PA Chronic trop elevation - peaked at 0.1 and this is in relation to his significant heart disease Anxiety - reassured well NICM - last EF at 20% Compensated. On milrinone infusion CAD - recent LHC with patent LAD and mild disease to other vessels otherwise Pulmonary HTN - multiple WHO classifications including sarcoid, CHF Sarcoidosis PAFIB - presently SR. recent interrogation with AFIB burden 0. CKD3 Mechanical AVR ([facility]) with chronic anticoagulation: On warfarin. INR 3.7. Goal INR 2.5-3.5. 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 recent check with 99% biv pacing 09/30/2019 Greater than 135 minutes spent on discharge. Discharge Information Condition at Discharge: Improved Follow Up: Weeks (1) Disposition/Orders: D/C to Home Scheduled Allopurinol (Zyloprim) 300 Mg Tablet, 300 MG PO DAILY, (Reported) Entered as Reported by: MARCELL CALDWELL on 11/17/131413 Last Action: Reviewed on 11/11/19431 by JOVON GRAVES RN Amiodarone Hcl (Amiodarone Hcl) 400 Mg Tablet, 1 TAB PO DAILY for a fib for 30 Days, #30 Ref 0 (Reported) Entered as Reported by: JOVON GRAVES RN on 11/11/19437 Last Action: New Order on 11/11/19437 by JOVON GRAVES RN Aspirin (Aspir-Low) 81 Mg Tablet.dr, 81 MG PO DAILY, (Reported) Entered as Reported by: MARCELL CALDWELL on 11/17/131414 Last Action: Reviewed on 11/11/19431 by JOVON GRAVES RN Bumetanide (Bumetanide) 2 Mg Tablet, 2 MG PO DAILY for CHF, (Reported) Entered as Reported by: JOVON GRAVES RN on 11/11/19437 Last Action: New Order on 11/11/19437 by JOVON GRAVES RN Ezetimibe (Zetia) 10 Mg Tablet, 1 TAB PO DAILY, #30 Ref 5 (Reported) Entered as Reported by: LOUISA URBANO on 09/06/171240 Last Action: Reviewed on 11/11/19431 by JOVON GRAVES RN Multivits-Minerals/Fa/Lycopene (One Daily For Men Tablet) 1 Each Tablet, 1 EACH PO DAILY, (Reported) Entered as Reported by: MARCELL CALDWELL on 11/17/131413 Last Action: Reviewed on 11/11/19431 by JOVON GRAVES RN Pantoprazole Sodium (Pantoprazole Sodium ) 40 Mg Tablet.dr, 1 TAB PO DAILY, #30 Ref 3 (Reported) Entered as Reported by: LOUISA URBANO on 09/06/171240 Last Action: Reviewed on 11/11/19431 by JOVON GRAVES RN Rosuvastatin Calcium (Crestor) 10 Mg Tablet, 40 MG PO HS for hld, (Reported) Entered as Reported by: MARCELL CALDWELL on 11/17/131414 Last Action: Reviewed on 11/11/19431 by JOVON GRAVES RN Sacubitril/Valsartan (Entresto 49 mg-51 mg Tablet) 1 Each Tablet, 1 TAB PO BID for CHF for 30 Days, #60 Prescribed by: ALEXIA LOZA MD on 01/21/19 1614 Last Action: Reviewed on 11/11/19431 by JOVON GRAVES RN Spironolactone (Spironolactone) 25 Mg Tablet, 25 MG PO DAILY for CHF, (Reported) Take 1/2 tab Q day Entered as Reported by: JOVON GRAVES RN on 11/11/19437 Last Action: New Order on 11/11/19437 by JOVON GRAVES RN Warfarin Sodium (Warfarin Sodium) 2 Mg Tablet, 2 MG PO DAILY for St judes mechanical valve, #30 (Reported) Entered as Reported by: JOVON GRAVES RN on 11/11/19446 Last Action: New Order on 11/11/19446 by JOVON GRAVES RN Warfarin Sodium (Warfarin Sodium) 3 Mg Tablet, 3 MG PO DAILY for St Judes MEechanical valve, #30 (Reported) Entered as Reported by: JOVON GRAVES RN on 11/11/19446 Last Action: New Order on 11/11/19446 by JOVON GRAVES RN Scheduled PRN Hydrocodone Bit/Acetaminophen (Hydrocodone-Apap 7.5-325 ) 1 Each Tablet, 1 TAB PO PRN Q6HRS PRN for PAIN, Ref 0 (Reported) Entered as Reported by: LOUISA URBANO on 09/06/17 1236 Last Action: Reviewed on 11/11/19431 by JOVON GRAVES RN Mexiletine Hcl (Mexiletine Hcl) 150 Mg Capsule, 150 MG PO TID PRN for CHEST PAIN, (Reported) Entered as Reported by: JOVON GRAVES RN on 11/11/19437 Last Action: New Order on 11/11/19437 by JOVON GRAVES RN Milrinone Lactate/D5w (Milrinone-D5w 20 Mg/100 Ml) 20 Mg/100 Ml Piggyback, Unknown Dose IV CONT PRN PRN for SEE COMMENTS, (Reported) Entered as Reported by: JOVON GRAVES RN on 11/11/19531 Last Action: New Order on 11/11/19531 by JOVON GRAVES RN Nitroglycerin (NITROGLYCERIN SubLingual) 0.4 Mg Tab.subl, 1 TAB SL UD PRN for PAIN, #25 Ref 3 (Reported) Entered as Reported by: LOUISA URBANO on 09/06/17 1241 Zolpidem Tartrate (Zolpidem Tartrate) 10 Mg Tablet, 1 TAB PO QHS PRN for INSOMNIA, #30 Ref 2 (Reported) Entered as Reported by: LOUISA URBANO on 09/06/17 1236 Last Action: Reviewed on 11/11/19431 by JOVON GRAVES RN Discontinued Medications Carvedilol (Coreg) 25 Mg Tablet, 25 MG PO BID for heart, (Reported) Entered as Reported by: MARCELL CALDWELL on 11/17/13 1412 Last Action: Discontinued on 11/11/19431 by JOVON GRAVES RN Colchicine (Colcrys) 0.6 Mg Tablet, 2 TAB PO PRN DAILY PRN for MUSCLE SPASMS, #30 Ref 3 (Reported) Entered as Reported by: Concepcion Kennedy on 01/19/192214 Last Action: Discontinued on 11/11/19431 by JOVON GRAVES RN Potassium Chloride (Potassium Chloride ) 20 Meq Tablet.er, 20 MEQ PO BID for replacement, (Reported) Entered as Reported by: Concepcion Kennedy on 01/19/192214 Last Action: Discontinued on 11/11/19431 by JOVON GRAVES RN Pramipexole Di-Hcl (Mirapex) 0.25 Mg Tablet, 0.75 MG PO QHS for restless legs, (Reported) Entered as Reported by: LOUISA URBANO on 09/06/171235 Last Action: Discontinued on 11/11/19431 by JOVON GRAVES RN Warfarin Sodium (Warfarin Sodium) 2.5 Mg Tablet, 2.5 MG PO DAILY, (Reported) Entered as Reported by: MIO ANGELO RPH on 05/12/191245 Last Action: Discontinued on 11/11/19446 by JOVON GRAVES RN Warfarin Sodium (Warfarin Sodium) 5 Mg Tablet, 5 MG PO QTU, #30 (Reported) Entered as Reported by: MIO ANGELO RPH on 05/12/191245 Last Action: Discontinued on 11/11/19446 by KELVIN BERMAN CHRISTOPHER S MD Nov 11, 2019 14:51
== END 2019-11-11 14:46 | disposition home or self-care (01) | DRG 313 ==
LOC: ER 22:13 → 2 NORTH 11-11 00:26
PROVIDERS: ADMIT Internal Medicine; ATTEND Internal Medicine
DX: R07.89 Other chest pain (principal); I13.0 Hypertensive heart and chronic kidney disease with heart failure and stage 1 through stage 4 chronic kidney disease, or unspecified chronic kidney disease; I42.8 Other cardiomyopathies; I50.42 Chronic combined systolic (congestive) and diastolic (congestive) heart failure; D86.9 Sarcoidosis, unspecified; E11.22 Type 2 diabetes mellitus with diabetic chronic kidney disease; E78.00 Pure hypercholesterolemia, unspecified; E78.5 Hyperlipidemia, unspecified; F41.9 Anxiety disorder, unspecified; I25.10 Atherosclerotic heart disease of native coronary artery without angina pectoris; I27.20 Pulmonary hypertension, unspecified; I48.91 Unspecified atrial fibrillation; N18.3 Chronic kidney disease, stage 3 (moderate); Z79.01 Long term (current) use of anticoagulants; Z82.49 Family history of ischemic heart disease and other diseases of the circulatory system; Z86.73 Personal history of transient ischemic attack (TIA), and cerebral infarction without residual deficits; Z95.1 Presence of aortocoronary bypass graft; Z95.2 Presence of prosthetic heart valve; Z95.810 Presence of automatic (implantable) cardiac defibrillator; Z98.61 Coronary angioplasty status; M19.90 Unspecified osteoarthritis, unspecified site
CPT/HCPCS: 36415; 71045; 80048; 80053; 80061; 82550; 83690; 83735; 83880; 84443; 84484; 85025; 85610; 93005; G0378

== ENCOUNTER 2020-01-06 10:31 | Emergency (ER) | payer MEDICARE, BC ==
[~2020-01-06] VITALS: Ht 182.9 cm; Wt 102.2 kg
[~2020-01-06 10:31] MED LIST changes: +AMIO400T5 PO; +BUME2TAB3 PO; +MEXI150C PO; +MILR20PI IV; +SPIR25TA5 PO; +WARF2TAB96 PO; +WARF3TAB50 PO
[2020-01-06 11:37] LABS: BASO % 1 % (0-3); EOS % 0 % (0-3); HEMATOCRIT 39.1 % (39.0-53.0); HEMOGLOBIN 12.8 g/dL (13.0-17.5); LYMPH # 0.1 x10^3/uL (1.0-4.8); LYMPH % 2 % (24-48); MEAN CORPUSCULAR HEMOGLOBIN 30 pg (25-35); MEAN CORPUSCULAR HGB CONC 33 g/dL (31-37); MEAN CORPUSCULAR VOLUME 93 fL (79-100); MONO # 0.5 x10^3/uL (0.0-1.1); MONO % 7 % (0-9); NEUT # 6.8 x10^3/uL (1.8-7.7); NEUT % 90 % (31-73); PLATELET COUNT 182 x10^3/uL (140-400); RED CELL DISTRIBUTION WIDTH 16.3 % (11.5-14.5); WHITE BLOOD COUNT 7.5 x10^3/uL (4.0-11.0)
[2020-01-06 11:39] LABS: PROTHROMBIN TIME PATIENT 28.3 SEC (11.7-14.0)
--- NOTE | 2020-01-06 11:40 | PHYS DOC ---
Past Medical History Past Medical History: CAD, CHF, High Cholesterol, Hypertension, VT Past Surgical History: Coronary Bypass Surgery, Pacemaker, Other Additional Past Surgical Histo: defib, aortic valve replacement, cardiac cath with stent Smoking Status: Never Smoker Alcohol Use: None Drug Use: None Adult General Chief Complaint Chief Complaint: COUGH HPI HPI Patient is a 64 year old male with history of hypertension, dyslipidemia, coronary artery disease and status post CABG, CHF, pacemaker and defibrillator placement and IV amiodarone infusion since April 2019 with central line placement who presents via EMS with complaint of cough. Patient complaining of episodes of cough that started about 36 hours ago as a frequent cough with some episodes of productive cough with yellow sputum and chest tightness during episodes of cough. Review of Systems Review of Systems Constitutional: Denies fever or chills [] Eyes: Denies change in visual acuity, redness, or eye pain [] HENT: Denies nasal congestion or sore throat [] Respiratory: Denies cough or shortness of breath [] Cardiovascular: No additional information not addressed in HPI [] GI: Denies abdominal pain, nausea, vomiting, bloody stools or diarrhea [] : Denies dysuria or hematuria [] Musculoskeletal: Denies back pain or joint pain [] Integument: Denies rash or skin lesions [] Neurologic: Denies headache, focal weakness or sensory changes [] Endocrine: Denies polyuria or polydipsia [] All other systems were reviewed and found to be within normal limits, except as documented in this note. Current Medications Current Medications Current Medications Medications (Trade) Dose Ordered Sig/Harshal Start Time Stop Time Status Last Admin Dose Admin Albuterol/ Ipratropium (Duoneb) 3 ml 1X ONCE 01/06/20 11:45 01/06/20 11:46 DC 01/06/20 11:16 3 ML Benzonatate (Tessalon Perle) 200 mg 1X ONCE 01/06/20 11:45 01/06/20 11:46 DC 01/06/20 11:42 200 MG Fentanyl Citrate (Fentanyl 2ml Vial) 50 mcg 1X ONCE 01/06/20 11:45 01/06/20 11:46 DC 01/06/20 11:43 50 MCG Oseltamivir Phosphate (Tamiflu) 75 mg 1X STAT 01/06/20 12:58 01/06/20 13:00 DC Allergies Allergies Allergies Coded Allergies Type Severity Reaction Last Updated Verified lisinopril Allergy Intermediate rash 09/08/17 Yes Physical Exam Physical Exam Constitutional: Well developed, well nourished, no acute distress, non-toxic appearance. [] HENT: Normocephalic, atraumatic, bilateral external ears normal, oropharynx moist, no oral exudates, nose normal. [] Eyes: PERRLA, EOMI, conjunctiva normal, no discharge. [] Neck: Normal range of motion, no tenderness, supple, no stridor. [] Cardiovascular:Heart rate regular rhythm, no murmur [] Lungs & Thorax: Bilateral breath sounds clear to auscultation [] Abdomen: Bowel sounds normal, soft, no tenderness, no masses, no pulsatile masses. [] Skin: Warm, dry, no erythema, no rash. [] Back: No tenderness, no CVA tenderness. [] Extremities: No tenderness, no cyanosis, no clubbing, ROM intact, no edema. [] Neurologic: Alert and oriented X 3, normal motor function, normal sensory function, no focal deficits noted. [] Psychologic: Affect normal, judgement normal, mood normal. [] Current Patient Data Vital Signs Vital Signs Date Time Temp Pulse Resp B/P (MAP) Pulse Ox O2 Delivery O2 Flow Rate FiO2 01/06/20 11:43 16 95 Room Air 01/06/20 10:47 99.1 80 120/73 (89) 99.1 Lab Values Laboratory Tests Test 01/06/20 11:09 01/06/20 11:59 01/06/20 12:16 White Blood Count 7.5 x10^3/uL (4.0-11.0) Red Blood Count 4.20 x10^6/uL (4.30-5.70) L Hemoglobin 12.8 g/dL (13.0-17.5) L Hematocrit 39.1 % (39.0-53.0) Mean Corpuscular Volume 93 fL (79-100) Mean Corpuscular Hemoglobin 30 pg (25-35) Mean Corpuscular Hemoglobin Concent 33 g/dL (31-37) Red Cell Distribution Width 16.3 % (11.5-14.5) H Platelet Count 182 x10^3/uL (140-400) Neutrophils (%) (Auto) 90 % (31-73) H Lymphocytes (%) (Auto) 2 % (24-48) L Monocytes (%) (Auto) 7 % (0-9) Eosinophils (%) (Auto) 0 % (0-3) Basophils (%) (Auto) 1 % (0-3) Neutrophils # (Auto) 6.8 x10^3/uL (1.8-7.7) Lymphocytes # (Auto) 0.1 x10^3/uL (1.0-4.8) L Monocytes # (Auto) 0.5 x10^3/uL (0.0-1.1) Eosinophils # (Auto) 0.0 x10^3/uL (0.0-0.7) Basophils # (Auto) 0.0 x10^3/uL (0.0-0.2) Platelet Estimate Pending Prothrombin Time 28.3 SEC (11.7-14.0) H Prothrombin Time INR 2.7 (0.8-1.1) H Activated Partial Thromboplast Time 45 SEC (24-38) H Sodium Level 141 mmol/L (136-145) Potassium Level 4.8 mmol/L (3.5-5.1) Chloride Level 102 mmol/L (98-107) Carbon Dioxide Level 25 mmol/L (21-32) Anion Gap 14 (6-14) Blood Urea Nitrogen 46 mg/dL (8-26) H Creatinine 2.4 mg/dL (0.7-1.3) H Estimated GFR (Cockcroft-Gault) 27.3 BUN/Creatinine Ratio 19 (6-20) Glucose Level 111 mg/dL (70-99) H Lactic Acid Level 1.5 mmol/L (0.4-2.0) Calcium Level 9.5 mg/dL (8.5-10.1) Magnesium Level 1.9 mg/dL (1.8-2.4) Total Bilirubin 0.6 mg/dL (0.2-1.0) Aspartate Amino Transferase (AST) 167 U/L (15-37) H Alanine Aminotransferase (ALT) 142 U/L (16-63) H Alkaline Phosphatase 80 U/L (46-116) Creatine Kinase 413 U/L (39-308) H Troponin I Quantitative 0.068 ng/mL (0.000-0.055) DN-Lkt-I-Type Natriuretic Peptide 6209 pg/mL (0-124) H Total Protein 6.6 g/dL (6.4-8.2) Albumin 3.8 g/dL (3.4-5.0) Albumin/Globulin Ratio 1.4 (1.0-1.7) Influenza Type A Antigen Positive (NEGATIVE) Influenza Type B Antigen Negative (NEGATIVE) Urine Collection Type Unknown Urine Color Yellow Urine Clarity Clear Urine pH 5.0 Urine Specific [place] 1.025 Urine Protein 30 mg/dL (NEG-TRACE) Urine Glucose (UA) Negative mg/dL (NEG) Urine Ketones (Stick) Negative mg/dL (NEG) Urine Blood Negative (NEG) Urine Nitrite Negative (NEG) Urine Bilirubin Negative (NEG) Urine Urobilinogen Dipstick 0.2 mg/dL (0.2 mg/dL) Urine Leukocyte Esterase Negative (NEG) Urine RBC 1-2 /HPF (0-2) Urine WBC 5-10 /HPF (0-4) Urine Squamous Epithelial Cells Few /LPF Urine Bacteria Few /HPF (0-FEW) Urine Mucus Mod /LPF Laboratory Tests 01/06/20 11:09 Laboratory Tests 01/06/20 11:09 EKG EKG EKG interpreted by me. EKG at 1146 showed normal sinus rhythm at rate of 80, abnormal right superior axis deviation, nonspecific intraventricular block, poor R-wave progress in anteroseptal leads, no acute ST and T-wave elevation. Radiology/Procedures Radiology/Procedures [facility] [address] [place] [address] IMAGING REPORT Signed PATIENT: LAURIE FARRIS CACCOUNT: [id number] : 1955 LOCATION: ER AGE: 64 SEX: M EXAM STATUS: PRE ER ORD. PHYSICIAN: ZANE BROWN MD REASON: cough and shortness of breath PROCEDURE: PORTABLE CHEST 1V PORTABLE CHEST 1V History: Cough. Shortness of breath. Comparison: November 10, 2019 Findings: Patchy bibasilar opacities. No pneumothorax. Portable technique accentuates cardiac size. No pleural effusion. Stable right IJ central line and left pacemaker. Prior median sternotomy. Bilateral acromioclavicular DJD. Impression: 1. Patchy bibasilar opacities, may represent atelectasis or consolidations. PA and lateral view of the chest can better assess if indicated. Electronically signed by: Neeraj Kraft DO (01/06/2020 11:55 AM) [facility] DICTATED and SIGNED BY: NEERAJ KRAFT DO DATE: 01/06/20 1155 Course & Med Decision Making Course & Med Decision Making Pertinent Labs and Imaging studies reviewed. (See chart for details) Evaluation of patient in ER showed 64-year-old male patient with history of extensive cardiac problems presented with complaining of cough for the last 36 hours. Patient had temperature of 99.6 in ER and positive influenza 8. Patient had chronic elevation of BUN/creatinine, BNP, troponin without new changes. Patient was treated with nebulizer treatment, Tessalon and fentanyl in ER and felt better. Patient wants to go home and follow up as outpatient treatment first dose of Tamiflu was given in ER. Patient was advised to follow with his primary care physician in one or 2 days and return to ER if not getting better. I've spoken with the patient and/or caregivers. I've explained the patient's condition, diagnosis and treatment plan based on information available to me at this time. I've answered the patient's and/or caregivers questions and addressed any concerns. The patient and/or caregivers have a good understanding the patient's diagnosis, condition and treatment plan as can be expected at this point. Vital signs have been stabilized. The patient's condition is stable for discharge from the emergency department. The patient will pursue further outpatient evaluation with her primary care provider or other designated consulting physician as outlined in the discharge instructions. Patient and/or caregivers are agreeable to this plan of care and follow-up instructions have been explained in detail. The patient and/or c aregivers have received these instructions in written format and expressed understanding of these discharge instructions. The patient and her caregivers are aware that if any significant change in condition or worsening of symptoms should prompt him to immediately return to this of the closest emergency department. If an emergent department is not readily available I would encourage him to call 911. Yennyon Disclaimer Dragon Disclaimer This electronic medical record was generated, in whole or in part, using a voice recognition dictation system. Departure Departure Impression: Primary Impression: Influenza A Additional Impressions: Cough Chronic renal failure CHF (congestive heart failure) Elevated troponin I level Disposition: HOME, SELF-CARE (at 1305) Condition: IMPROVED Referrals: LAVINIA NORIEGA (PCP) Patient Instructions: Cough, Adult, Fever, Adult, Haemophilus influenzae type b Conjugate Vaccine injection, Kidney Failure Additional Instructions: Continue current medication Follow-up with your primary care physician in 3-5 days Return to ER if not getting better Take Tylenol every 4-6 hours as needed for fever and pain Thank you for visiting [facility]. We appreciate you trusting us with your care. If any additional problems come up don't hesitate to return to visit us. Please follow up with your primary care provider so they can plan additional care if needed and know about the problem that you had. If symptoms worsen come back to the Emergency Department. Any concerning symptoms that start such as chest pain, shortness of air, weakness or numbness on one side of the body, running high fevers or any other concerning symptoms return to the ER. Scripts Hydrocodone/Apap 5-325 (NORCO 5-325 TABLET) 1 Each Tablet 1 TAB PO Q4-6HRS for pain, #14 TAB Prov: ZANE BROWN MD 01/06/20 Albuterol Sulfate (VENTOLIN HFA INHALER) 18 Gm Hfa.aer.ad 2 PUFF INH QID for FOR ASTHMA, #1 INHALER 0 Refills Prov: ZANE BROWN MD 01/06/20 Benzonatate (TESSALON PERLE) 100 Mg Capsule 1 CAP PO TID for cough, #21 CAP Prov: ZANE BROWN MD 01/06/20 Oseltamivir Phosphate (TAMIFLU) 75 Mg Capsule 1 CAP PO BID, #10 CAP Prov: ZANE BROWN MD 01/06/20 Problem Qualifiers Additional Impressions: Chronic renal failure Chronic kidney disease stage: unspecified stage Qualified Codes: N18.9 - Chronic kidney disease, unspecified CHF (congestive heart failure) Heart failure type: unspecified Heart failure chronicity: unspecified Qualified Codes: I50.9 - Heart failure, unspecified ZANE BROWN MD Jan 06, 2020 11:40
[2020-01-06] MEDS ORDERED: BENZONATATE 100 MG CAPSULE. PO ONE (11:45)
[2020-01-06] MEDS ORDERED: IPRATRPIUM/ALBUTEROL 0.5/2.5MG 3 ML NEBU. NEB ONE (11:45)
[2020-01-06] MEDS ORDERED: fentaNYL PF VIAL 100 MCG/2 ML VIAL IVP ONE (11:45)
--- NOTE | 2020-01-06 11:58 | RAD ---
PORTABLE CHEST 1V History: Cough. Shortness of breath. Comparison: November 10, 2019 Findings: Patchy bibasilar opacities. No pneumothorax. Portable technique accentuates cardiac size. No pleural effusion. Stable right IJ central line and left pacemaker. Prior median sternotomy. Bilateral acromioclavicular DJD. Impression: 1. Patchy bibasilar opacities, may represent atelectasis or consolidations. PA and lateral view of the chest can better assess if indicated. Electronically signed by: Neeraj Kraft DO (01/06/2020 11:55 AM) [id number]
[2020-01-06 12:00] LABS: CALCIUM 9.5 mg/dL (8.5-10.1); CREATININE 2.4 mg/dL (0.7-1.3); GFR 27.3; POTASSIUM 4.8 mmol/L (3.5-5.1)
[2020-01-06 12:16] LABS: ALBUMIN 3.8 g/dL (3.4-5.0); ALBUMIN/GLOBULIN RATIO 1.4 (1.0-1.7); MAGNESIUM 1.9 mg/dL (1.8-2.4); TOTAL BILIRUBIN 0.6 mg/dL (0.2-1.0); TOTAL PROTEIN 6.6 g/dL (6.4-8.2)
[2020-01-06 12:35] LABS: INFLUENZA A PATIENT POSITIVE (NEGATIVE); INFLUENZA B PATIENT NEGATIVE (NEGATIVE)
[2020-01-06 12:39] LABS: BILIRUBIN,URINE NEGATIVE (NEG); CLARITY,URINE CLEAR; COLOR,URINE YELLOW; NITRITE,URINE NEGATIVE (NEG); PROTEIN,URINE 30 mg/dL (NEG-TRACE); UROBILINOGEN,URINE 0.2 mg/dL (0.2 mg/dL)
[2020-01-06] MEDS ORDERED: OSELTAMIVIR 75 MG CAPSULE PO STA (12:58)
[2020-01-06 13:04] LABS: BACTERIA,URINE FEW /HPF (0-FEW); SQUAMOUS EPITHELIAL CELL,UR FEW /LPF
[2020-01-06] MEDS ORDERED: BENZ100C PO (13:13)
[2020-01-06] MEDS ORDERED: HYDR-3164 PO (13:13)
[2020-01-06] MEDS ORDERED: VENTOLIN HFA18 GM INH (13:13)
[2020-01-06] MEDS ORDERED: OSEL75CA PO (13:13)
[2020-01-06 13:30] VITALS: BP 115/67
[2020-01-06 13:33] LABS: % EOS 1 % (0-5); % LYMPHS 3 % (24-48)
[2020-01-06 13:34] LABS: % BANDS 8 % (0-9); % MONOS 5 % (0-10); % SEGS 83 % (35-66); PLT ESTIMATE ADEQUATE (ADEQUATE)
--- NOTE | 2020-01-09 06:05 | EKG ---
[facility] [address] [place] [address] Test Date: 2020-01-06 Test Time: 11:46:09 Pat Name: LAURIE FARRIS Department: Room: Gender: M [employer]: : 1955 Requested By: ZANE BROWN Order Number: [id number] Reading MD: Measurements Intervals [place] Rate: 80 P: 129 ND: 186 QRS: -175 QRSD: 188 T: -15 QT: 456 QTc: 530 Interpretive Statements SINUS RHYTHM ABNORMAL RIGHT SUPERIOR AXIS DEVIATION NON SPECIFIC INTRAVENTRICULAR BLOCK QRS(T) CONTOUR ABNORMALITY CONSIDER ANTEROLATERAL INFARCT ABNORMAL ECG RI6.01 No previous ECG available for comparison
== END 2020-01-06 13:50 | disposition home or self-care (01) ==
LOC: ER 10:31
DX: J10.1 Influenza due to other identified influenza virus with other respiratory manifestations (principal); I13.0 Hypertensive heart and chronic kidney disease with heart failure and stage 1 through stage 4 chronic kidney disease, or unspecified chronic kidney disease; N18.9 Chronic kidney disease, unspecified; I50.9 Heart failure, unspecified; E78.00 Pure hypercholesterolemia, unspecified; I25.2 Old myocardial infarction; I25.10 Atherosclerotic heart disease of native coronary artery without angina pectoris; Z95.1 Presence of aortocoronary bypass graft; Z95.0 Presence of cardiac pacemaker; Z95.5 Presence of coronary angioplasty implant and graft; Z88.8 Allergy status to other drugs, medicaments and biological substances
CPT/HCPCS: 36415; 71045; 80053; 81001; 82550; 83605; 83735; 83880; 84484; 85007; 85025; 85610; 85730; 87086; 87804; 93005; 94640; 96374; 99285; J3010; J7620